=== PATIENT | male | born 1950 | race African-American/Black ===

== ENCOUNTER 2017-02-01 04:20 | Inpatient (IN) | payer MEDICARE, MEDICAID ==
[~2017-02-01] VITALS: Ht 182.9 cm; Wt 99.8 kg
[~2017-02-01 04:20] MED LIST: ACETAMINOPHEN325 M1 ORAL; AMLODIPINE BESYL5 MG ORAL; ASPIR 8181 MG ORAL; ATORVASTATIN CA40 MG ORAL; AZITHROMYC200 MG/5 M ORAL; FLOMAX0.4 MG ORAL; GUAIFENESIN DM118 M1 ORAL; LEVOFLOXACIN500 MG ORAL; MUCINEX600 MG PO; NITROSTAT0.4 M1 SL; NORVASC5 MG ORAL; NOVOLOG100 UNITS1 SUBQ; PANTOPRAZOLE SO40 MG ORAL; PREDNISONE10 MG ORAL; PREDNISONE20 MG ORAL; TAMSULOSIN HCL0.4 MG ORAL; THEOPHYLLINE A100 MG ORAL; VENTOLIN HFA18 GM INH; XOPENEX0.5 MG HHN
[2017-02-01] MEDS ORDERED: Vancomycin 1.5gm/D5W 300ml 325 ML IVPB ONE (04:30)
--- NOTE | 2017-02-01 04:33 | Emergency Room Report ---
History of Present Illness General Chief Complaint: Abdominal Pain Source: Patient, EMS Present Illness HPI 66YO M chronic respi failure on trach/vent sent from [place] for fever, abd pain , and "Distended and rigid abdomen." Patient c/o RUQ pain. Denies nausea/ vomiting, diarrhea, chest pain, SOB, urinary complaints. Had fever at SNF, was given Tylenol and ABx without improvement. Allergies: Coded Allergies: No Known Allergies (Unverified , 08/09/13) Patient History Past Medical History: DM, COPD, other - Chronic respi failure on trach/vent dependent Pertinent Family History: none Social History: Denies: alcohol use, drug use, smoking Immunizations: UTD Reviewed Nursing Documentation: PMH: Agreed, PSxH: Agreed Nursing Documentation-PMH Hx Cardiac Problems: Yes - Dysphasia, Resp. failure Hx Hypertension: Yes Hx Asthma: Yes Hx COPD: Yes Hx Diabetes: Yes Hx Cancer: No Hx Gastrointestinal Problems: No Hx Neurological Problems: No Review of Systems All Other Systems: negative except mentioned in HPI Physical Exam Vital Signs Date Time Temp Pulse Resp B/P Pulse Ox O2 Delivery O2 Flow Rate FiO2 02/01/17 04:21 120 19 113/76 100 Endotracheal Tube 15.0 Sp02 EP Interpretation: reviewed, abnormal General Appearance: normal inspection, well appearing, no apparent distress, alert, GCS 15, non-toxic, obese Head: normocephalic Eyes: bilateral eye EOMI, bilateral eye PERRL ENT: normal ENT inspection, hearing grossly normal, normal voice Neck: normal inspection, full range of motion, supple, no bony tend Respiratory: normal inspection, lungs clear, normal breath sounds, no rhonchi, no respiratory distress, no retraction, no accessory muscle use, no wheezing Cardiovascular #1: regular rate, rhythm, no edema Gastrointestinal: normal inspection, normal bowel sounds, no guarding, no hernia, no pulsatile mass, no rebound, distended, other - RUQ ttp, protuberant Genitourinary: no CVA tenderness Musculoskeletal: normal inspection, back normal, normal range of motion, César' s Sign negative Neurologic: normal inspection, alert, oriented x3, responsive, network support engineer III-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 I attest that this information is true, accurate and complete to the best of my knowledge. I understand that any falsification, omission, or concealment of material fact may subject me to administrative, civil, or criminal liability. This patient warrants hospital admission for extreme of age and has a condition that cannot be treated as outpatient. Diagnostic Impression: Primary Impression: Right upper quadrant abdominal pain Additional Impression: Fever Qualified Codes: R50.9 - Fever, unspecified ER Course Labs: Leuks elevated. H&h stable. SerumCr CHENTE on CKD (based on EMR review) CXR: no PNA, chronic changes UA: No UTI Empiric Abx given CTAP with IV contrast changed to non-contrast because of CHENTE on CKD Endorsed to Dr Wang at 630am to followup CTAP Endorsed to Dr Meehan as preferred [facility] Hospitalist at 610am for [facility] EKG Diagnostic Results Rate: tachycardiac Rhythm: NSR ST Segments: no acute changes ASA given to the pt in ED: No Rhythm Strip Diag. Results EP Interpretation: yes Rate: 110 Chest X-Ray Diagnostic Results EP Interpretation: Yes Findings: no consolidation, no effusion, no pneumothorax, other - previously seen scarring right lower lobe, right hilar prominence is chronic Number of Views: 1 Last Vital Signs Date Time Temp Pulse Resp B/P Pulse Ox O2 Delivery O2 Flow Rate FiO2 02/01/17 04:21 120 19 113/76 100 Endotracheal Tube 15.0 Status: improved Disposition: ADMITTED INPATIENT Condition: Serious DANN HENRIQUEZ M.D. Feb 01, 2017 04:33
[2017-02-01] MEDS ORDERED: Zosyn 4.5gm inj ONE (05:07)
[2017-02-01 05:22] LABS: MEAN CORPUSCULAR HEMOGLOBIN 25.2 PG (27.0-31.0); MEAN CORPUSCULAR HGB CONC 29.1 G/DL (32.0-36.0); MEAN CORPUSCULAR VOLUME 86 FL (80-99); MEAN PLATELET VOLUME 6.8 FL (6.5-10.1); PLATELET COUNT 232 K/UL (150-450); RED BLOOD COUNT 4.33 M/UL (4.70-6.10); RED CELL DISTRIBUTION WIDTH 15.8 % (11.6-14.8); WHITE BLOOD COUNT 21.6 K/UL (4.8-10.8)
[2017-02-01 05:30] LABS: APPEARANCE,URINE CLEAR; KETONES,URINE 1+ (NEGATIVE); LEUKOCYTE ESTERASE ,URINE 1+ (NEGATIVE); NITRITE,URINE NEGATIVE (NEGATIVE); PH,URINE 6 (4.5-8.0); PROTEIN,URINE 3+ (NEGATIVE); UROBILINOGEN,URINE 1 MG/DL (0.0-1.0)
[2017-02-01 05:37] LABS: BACTERIA,URINE FEW /HPF; RBC,URINE 0-2 /HPF (0 - 0); SQUAMOUS EPITHELIAL CELL,UR FEW /LPF (NONE/OCC); WBC,URINE 0-2 /HPF (0 - 0)
[2017-02-01 05:38] LABS: CALCIUM OXALATE CRYSTALS,UR FEW /LPF; ICTOTEST NEGATIVE
[2017-02-01 05:40] LABS: ALANINE AMINOTRANSFERASE 20 U/L (3-41); ANION GAP 8 (5-15); ASPARTATE AMINO TRANSFERASE 27 U/L (5-40); CALCIUM 9.4 mg/dL (8.6-10.2); CARBON DIOXIDE 40 mEQ/L (20-30); CHLORIDE 90 mEQ/L (98-107); CREATININE 2.3 mg/dL (0.7-1.2); GLOMERULAR FILTRATION RATE 34.4 mL/min (>60); HEMOLYSIS 14; POTASSIUM 5.1 mEQ/L (3.4-4.9); SODIUM 138 mEQ/L (135-145)
[2017-02-01 05:50] LABS: BAND NEUTROPHILS % (MANUAL) 14 % (0-8); LYMPHOCYTES % (MANUAL) 19 % (20-45); NEUTROPHILS % (MANUAL) 53 % (45-75); TOTAL CELLS COUNTED 100
[2017-02-01 05:51] LABS: CKMB < 1.5 ng/mL (< 6.7)
[2017-02-01 05:52] LABS: BASOPHILS % (MANUAL) 0 % (0-2); EOSINOPHILS % (MANUAL) 0 % (0-3); PLATELET ESTIMATE ADEQUATE; PLATELET MORPHOLOGY NORMAL
[2017-02-01] MEDS ORDERED: MULTI-VITAMIN1 EACH PO (05:53)
[2017-02-01] MEDS ORDERED: IPRATROPIU0.2 MG/1 M HHN (05:53)
[2017-02-01] MEDS ORDERED: CATAPRES0.1 MG ORAL (05:53)
[2017-02-01] MEDS ORDERED: NORCO 5-325 TA1 EAC1 ORAL (05:53)
[2017-02-01] MEDS ORDERED: ZOSYN 3.373.375 GM/1 IVPB (05:53)
[2017-02-01] MEDS ORDERED: SIMETHICONE80 MG ORAL (05:53)
[2017-02-01] MEDS ORDERED: METOPROLOL TART25 MG ORAL (05:53)
[2017-02-01] MEDS ORDERED: LORAZEPAM2 MG/1 M4 ORAL (05:53)
[2017-02-01] MEDS ORDERED: Piperacillin/Tazobactam 4.5 GM in NS 110 ML IV SCH (06:00)
[2017-02-01 06:02] VITALS: BP 140/68
[2017-02-01 06:07] LABS: TROPONIN I < 0.30 ng/mL (<=0.30)
[2017-02-01] MEDS ORDERED: NS 1000ml 2,200 ML IVLG ONE (07:30)
[2017-02-01 07:57] VITALS: BP 98/70
[2017-02-01 08:40] VITALS: BP 111/76
--- NOTE | 2017-02-01 08:47 | Infectious Diseases Prog Note ---
Assessment/Plan Problems: (1) RLL pneumonia Assessment & Plan: will start levaquin and ceftaroline, send blood culture and sputum culture (2) Acute pyelonephritis Assessment & Plan: on levaquin , will send urine culture (3) Sepsis Assessment & Plan: source most likely intraabdominal pathology, will start levaquin and ceftaroline for now empirically, and send blood culture (4) CHENTE (acute kidney injury) Assessment & Plan: due to sepsis, continue hydration, monitor UOP, consult renal (5) Fever Assessment & Plan: due to sepsis, will start wide spectrum antibiotics, continue tylenol prn (6) Right upper quadrant abdominal pain Assessment & Plan: suspect due to pyelonephritis VS RLL PNA , continue pain management as per primary . CT abdomen and pelvis is negative for acute process Subjective Allergies: Coded Allergies: No Known Allergies (Unverified , 08/09/13) Objective Vital Signs Last 24 Hour Vital Signs Date Time Temp Pulse Resp B/P Pulse Ox O2 Delivery O2 Flow Rate FiO2 02/01/17 08:16 97.1 94 16 98/70 99 Mechanical Ventilator 80 02/01/17 07:57 101 16 98/70 99 Mechanical Ventilator 80 02/01/17 06:30 11 16 80 02/01/17 06:14 80 02/01/17 06:02 97.1 112 16 140/68 99 Trach Collar 100 02/01/17 04:44 128 16 Mechanical Ventilator 80 02/01/17 04:39 100 02/01/17 04:35 128 16 80 02/01/17 04:21 120 19 113/76 100 Endotracheal Tube 15.0 Height (Feet): 6 Weight (Pounds): 164 Laboratory Tests Test 02/01/17 04:50 02/01/17 05:15 White Blood Count 21.6 K/UL (4.8-10.8) H Red Blood Count 4.33 M/UL (4.70-6.10) L Hemoglobin 10.9 G/DL (14.2-18.0) L Hematocrit 37.5 % (42.0-52.0) L Mean Corpuscular Volume 86 FL (80-99) Mean Corpuscular Hemoglobin 25.2 PG (27.0-31.0) L Mean Corpuscular Hemoglobin Concent 29.1 G/DL (32.0-36.0) L Red Cell Distribution Width 15.8 % (11.6-14.8) H Platelet Count 232 K/UL (150-450) Mean Platelet Volume 6.8 FL (6.5-10.1) Neutrophils (%) (Auto) % (45.0-75.0) Lymphocytes (%) (Auto) % (20.0-45.0) Monocytes (%) (Auto) % (1.0-10.0) Eosinophils (%) (Auto) % (0.0-3.0) Basophils (%) (Auto) % (0.0-2.0) Differential Total Cells Counted 100 Neutrophils % (Manual) 53 % (45-75) Lymphocytes % (Manual) 19 % (20-45) L Monocytes % (Manual) 14 % (1-10) H Eosinophils % (Manual) 0 % (0-3) Basophils % (Manual) 0 % (0-2) Band Neutrophils 14 % (0-8) H Platelet Estimate Adequate Platelet Morphology Normal Sodium Level 138 mEQ/L (135-145) Potassium Level 5.1 mEQ/L (3.4-4.9) H Chloride Level 90 mEQ/L (98-107) L Carbon Dioxide Level 40 mEQ/L (20-30) H Anion Gap 8 (5-15) Blood Urea Nitrogen 31 mg/dL (7-23) H Creatinine 2.3 mg/dL (0.7-1.2) H Estimat Glomerular Filtration Rate 34.4 mL/min (>60) Glucose Level 163 mg/dL (74-106) H Lactic Acid Level 1.10 mmol/L (0.66-2.22) Calcium Level 9.4 mg/dL (8.6-10.2) Total Bilirubin 0.9 mg/dL (0.0-1.2) Aspartate Amino Transf (AST/SGOT) 27 U/L (5-40) Alanine Aminotransferase (ALT/SGPT) 20 U/L (3-41) Alkaline Phosphatase 61 U/L (40-129) Total Creatine Kinase 34 U/L (38-174) L Creatine Kinase MB < 1.5 ng/mL (< 6.7) Creatine Kinase MB Relative Index 4.4 Troponin I < 0.30 ng/mL (<=0.30) Total Protein 7.0 g/dL (6.6-8.7) Albumin 3.6 g/dL (3.5-5.2) Globulin 3.4 g/dL Albumin/Globulin Ratio 1.0 (1.0-2.7) Urine Color Yellow Urine Appearance Clear Urine pH 6 (4.5-8.0) Urine Specific [place] 1.010 (1.005-1.035) Urine Protein 3+ (NEGATIVE) H Urine Glucose (UA) Negative (NEGATIVE) Urine Ketones 1+ (NEGATIVE) H Urine Occult Blood Negative (NEGATIVE) Urine Nitrite Negative (NEGATIVE) Urine Bilirubin 1+ (NEGATIVE) H Urine Ictotest Negative Urine Urobilinogen 1 MG/DL (0.0-1.0) H Urine Leukocyte Esterase 1+ (NEGATIVE) H Urine RBC 0-2 /HPF (0 - 0) H Urine WBC 0-2 /HPF (0 - 0) Urine Squamous Epithelial Cells Few /LPF (NONE/OCC) Urine Calcium Oxalate Crystals Few /LPF (NONE) Urine Bacteria Few /HPF (NONE) Current Medications Medications (Trade) Dose Ordered Sig/Beto Route PRN Reason Start Time Stop Time Status Last Admin Dose Admin Piperacillin Sod/ Tazobactam Sod/ Sodium Chloride (Zosyn/Sodium Chloride) 110 ml @ 220 mls/hr Q8HR IV 02/01/17 06:00 02/02/17 05:59 02/01/17 07:31 Abhijit Tolbert M.D. Feb 01, 2017 08:47
--- NOTE | 2017-02-01 09:44 | Diagnostic Imaging Report ---
Indication: Abdominal pain Technique: Spiral acquisitions obtained through the abdomen and pelvis. No oral contrast utilized, per emergency room physician request No IV contrast utilized, per referring physician request. Multiplanar reconstructions were generated. Total dose length product 904 mGycm. CTDIvol(s) 17 mGy. Dose reduction achieved using automated exposure control Comparison: None Findings: Fairly dense stool mildly distends the rectum. There is colonic diverticulosis. No evidence of acute diverticulitis. The appendix is normal. There is nonspecific slight prominence to the proximal small bowel loops, but no small bowel distention. The distal esophagus, stomach, duodenum are unremarkable. No free or loculated intraperitoneal air or fluid is evident. Lack of IV contrast limits assessment of the solid organs. The liver, gallbladder, bile ducts, pancreas, spleen, adrenals, right kidney are unremarkable. There is a 3 cm left renal cyst. No renal arterial calculi, hydronephrosis, or hydroureter. There is some nonspecific bilateral perinephric fat stranding. The bladder is empty, contains a Damon catheter. No pelvic mass or adenopathy. No retroperitoneal or mesenteric mass or adenopathy. There are tiny bilateral inguinal hernias which contain only fat. The included lung bases demonstrate considerable consolidation of the posterior right lower lobe. Less extensive linear, reticular, and airspace opacities are seen in the left lower lobe. There is some atelectasis or scarring in the right middle lobe. There are degenerative changes of the lumbar spine. Impression: No definite acute process Nonspecific bilateral perinephric fat stranding. Suspect chronic, pyelonephritis not excludable Considerable right lower lobe consolidation. Less extensive left lung base parenchymal disease Incidental findings as noted, including degenerative spondylosis, bilateral fat-containing inguinal hernias, empty bladder with a Damon catheter, left renal cyst This agrees with the preliminary interpretation provided overnight by Dr. Garcse The CT scanner at [facility] is accredited by the [employer] and the scans are performed using protocols designed to limit radiation exposure to as low as reasonably achievable to attain images of sufficient resolution adequate for diagnostic evaluation.
[2017-02-01] MEDS ORDERED: Piperacillin/Tazobactam 3.375 GM in NS 110 ML IVPB SCH ×2 (10:00→14:00)
--- NOTE | 2017-02-01 10:14 | Diagnostic Imaging Report ---
Indication: SOB Technique: One view of the chest Comparison: 12/25/2015 Findings: There is consolidation at the right lung base, new or increased from the prior study. Linear opacities at the left lung base likely reflects scarring. The upper lung coreas are clear. Heart size is normal. There is a tracheostomy Impression: Right basilar consolidation, likely pneumonia Left basilar linear opacities, likely scarring.
[2017-02-01] MEDS: Ceftaroline 300 MG in NS 55 ML IVPB SCH ×2 (10:39→21:09)
[2017-02-01] MEDS ORDERED: Miralax 17gm pkt ORAL PRN (10:45)
--- NOTE | 2017-02-01 11:03 | Consultation ---
Consult Note Consult Note Asked to evaluate for renal failure- Chief Complaint: Abdominal Pain HPI 66YO M chronic respi failure on trach/vent sent from [place] for fever, abd pain , and "Distended and rigid abdomen." Patient c/o RUQ pain. Denies nausea/ vomiting, diarrhea, chest pain, SOB, urinary complaints. Had fever at SNF, was given Tylenol and ABx without improvement. Past Medical History: DM, COPD, other - Chronic respi failure on trach/vent dependent Hx Cardiac Problems: Yes - Dysphasia, Resp. failure Hx Hypertension: Yes Hx Asthma: Yes Hx COPD: Yes Hx Diabetes: Yes Patient examined and data reviewed Assessment/Plan status: Acute renal failure- Sepsis- DM Respiratory failure RUQ pain Anemia Plan: Hydrate- monitor renal parameters- Keep BP and BS in check urine studies- Avoid nephrotoxics SAMANTHA ALLRED Feb 01, 2017 11:03
--- NOTE | 2017-02-01 11:10 | History and Physical ---
History of Present Illness General Date patient seen: Feb 01, 2017 Reason for Hospitalization: Abdominal Pain Present Illness HPI 66year old male with hx of chronic respiratory failure on trach/vent/Peg, senior care resident brought in with CC of fever, abdominal pain, and "Distended and rigid abdomen." Patient c/o RUQ pain. Denies nausea/vomiting, diarrhea, chest pain, SOB, urinary complaints. Had fever at SNF, was given Tylenol and ABx without improvement. He is awake and comfortable now. He was diagnosed to have sepsis/ pneumonia and admitted to [facility] for further evaluation. Allergies: Coded Allergies: No Known Allergies (Unverified , 08/09/13) Medication History Scheduled Albuterol Sulfate (Ventolin Hfa), 2 PUFFS INH EVERY 6 HOURS, (Reported) Amlodipine Besylate* (Amlodipine Besylate*), 5 MG ORAL DAILY, (Reported) Aspirin* (Aspir 81*), 81 MG ORAL DAILY, (Reported) Atorvastatin Calcium* (Atorvastatin Calcium*), 80 MG ORAL BEDTIME, (Reported) Clonidine Hcl* (Catapres*), 0.1 MG ORAL EVERY 6 HOURS, (Reported) Insulin Aspart (Novolog Flexpen), 0 UNITS SUBQ BEFORE MEALS AND HS Levofloxacin (Levofloxacin*), 500 MG ORAL DAILY Lorazepam (Lorazepam), 2 MG ORAL DAILY, (Reported) Metoprolol Tartrate* (Metoprolol Tartrate*), 25 MG ORAL EVERY 12 HOURS, ( Reported) Pantoprazole* (Pantoprazole*), 40 MG ORAL DAILY, (Reported) Fjwqwcsrihqa-Gfmr-Bzosuylg,Iso (Zosyn 3.375 Gm Pre Mix-Bag), 3.375 GM IVPB EVERY 6 HOURS, (Reported) Prednisone* (Prednisone*), 20 MG ORAL DAILY Tamsulosin HCl (Flomax), 0.4 MG ORAL BEDTIME Tamsulosin Hcl (Tamsulosin Hcl*), 0.4 MG ORAL BEDTIME, (Reported) Theophylline (Theodur*), 100 MG ORAL EVERY 12 HOURS Scheduled PRN Acetaminophen* (Acetaminophen 325MG Tablet*), 650 MG ORAL Q4H PRN for fever Guaifenesin/Dextromethorphan (Guaifenesin Dm Syrup), 10 ML ORAL Q4H PRN for For Cough Hydrocodone Bit/Acetaminophen 5-325* ([place] 5-325 Tablet*), 1 TAB ORAL Q4H PRN for For Pain, (Reported) Ipratropium [place] 0.5MG/2.5ML (Ipratropium [place] 0.5MG/2.5ML), 0.5 MG HHN Q6H PRN for Shortness of Breath, (Reported) Levalbuterol HCl (Xopenex Concentrate), 0.625 MG HHN Q4H PRN for Shortness of Breath Nitroglycerin (Nitrostat), 0.4 MG SL Q5M PRN for Prn Chest Pain Simethicone* (Simethicone*), 80 MG ORAL Q8H PRN for GAS PAIN, (Reported) Miscellaneous Medications Multivitamin (Multi-Vitamin Daily), 1 EACH PO, (Reported) Patient History Healthcare decision maker Resuscitation status Advanced Directive on File Past Medical/Surgical History Past Medical/Surgical History: (1) Tracheostomy care Physical Exam General Appearance: WD/WN Lines, tubes and drains: peripheral, trach Neck: non-tender, normal alignment, supple Respiratory/Chest: chest wall non-tender, lungs clear Cardiovascular/Chest: normal peripheral pulses, normal rate Genitourinary/Rectal: normal genital exam, heme negative stool Extremities: normal range of motion, non-tender Last 24 Hour Vital Signs Date Time Temp Pulse Resp B/P Pulse Ox O2 Delivery O2 Flow Rate FiO2 02/01/17 10:21 80 02/01/17 08:40 97.0 88 16 111/76 100 Mechanical Ventilator 80 02/01/17 08:30 108 16 80 02/01/17 08:16 97.1 94 16 98/70 99 Mechanical Ventilator 80 02/01/17 07:57 101 16 98/70 99 Mechanical Ventilator 80 02/01/17 06:30 11 16 80 02/01/17 06:14 80 02/01/17 06:02 97.1 112 16 140/68 99 Trach Collar 100 02/01/17 04:44 128 16 Mechanical Ventilator 80 02/01/17 04:39 100 02/01/17 04:35 128 16 80 02/01/17 04:21 120 19 113/76 100 Endotracheal Tube 15.0 Intake and Output 01/31/17 02/01/17 19:00 07:00 Intake Total 1000 ml Balance 1000 ml Intake IV Total 1000 ml Laboratory Tests Test 02/01/17 04:50 02/01/17 05:15 White Blood Count 21.6 K/UL (4.8-10.8) H Red Blood Count 4.33 M/UL (4.70-6.10) L Hemoglobin 10.9 G/DL (14.2-18.0) L Hematocrit 37.5 % (42.0-52.0) L Mean Corpuscular Volume 86 FL (80-99) Mean Corpuscular Hemoglobin 25.2 PG (27.0-31.0) L Mean Corpuscular Hemoglobin Concent 29.1 G/DL (32.0-36.0) L Red Cell Distribution Width 15.8 % (11.6-14.8) H Platelet Count 232 K/UL (150-450) Mean Platelet Volume 6.8 FL (6.5-10.1) Neutrophils (%) (Auto) % (45.0-75.0) Lymphocytes (%) (Auto) % (20.0-45.0) Monocytes (%) (Auto) % (1.0-10.0) Eosinophils (%) (Auto) % (0.0-3.0) Basophils (%) (Auto) % (0.0-2.0) Differential Total Cells Counted 100 Neutrophils % (Manual) 53 % (45-75) Lymphocytes % (Manual) 19 % (20-45) L Monocytes % (Manual) 14 % (1-10) H Eosinophils % (Manual) 0 % (0-3) Basophils % (Manual) 0 % (0-2) Band Neutrophils 14 % (0-8) H Platelet Estimate Adequate Platelet Morphology Normal Sodium Level 138 mEQ/L (135-145) Potassium Level 5.1 mEQ/L (3.4-4.9) H Chloride Level 90 mEQ/L (98-107) L Carbon Dioxide Level 40 mEQ/L (20-30) H Anion Gap 8 (5-15) Blood Urea Nitrogen 31 mg/dL (7-23) H Creatinine 2.3 mg/dL (0.7-1.2) H Estimat Glomerular Filtration Rate 34.4 mL/min (>60) Glucose Level 163 mg/dL (74-106) H Lactic Acid Level 1.10 mmol/L (0.66-2.22) Calcium Level 9.4 mg/dL (8.6-10.2) Total Bilirubin 0.9 mg/dL (0.0-1.2) Aspartate Amino Transf (AST/SGOT) 27 U/L (5-40) Alanine Aminotransferase (ALT/SGPT) 20 U/L (3-41) Alkaline Phosphatase 61 U/L (40-129) Total Creatine Kinase 34 U/L (38-174) L Creatine Kinase MB < 1.5 ng/mL (< 6.7) Creatine Kinase MB Relative Index 4.4 Troponin I < 0.30 ng/mL (<=0.30) Total Protein 7.0 g/dL (6.6-8.7) Albumin 3.6 g/dL (3.5-5.2) Globulin 3.4 g/dL Albumin/Globulin Ratio 1.0 (1.0-2.7) Urine Color Yellow Urine Appearance Clear Urine pH 6 (4.5-8.0) Urine Specific [place] 1.010 (1.005-1.035) Urine Protein 3+ (NEGATIVE) H Urine Glucose (UA) Negative (NEGATIVE) Urine Ketones 1+ (NEGATIVE) H Urine Occult Blood Negative (NEGATIVE) Urine Nitrite Negative (NEGATIVE) Urine Bilirubin 1+ (NEGATIVE) H Urine Ictotest Negative Urine Urobilinogen 1 MG/DL (0.0-1.0) H Urine Leukocyte Esterase 1+ (NEGATIVE) H Urine RBC 0-2 /HPF (0 - 0) H Urine WBC 0-2 /HPF (0 - 0) Urine Squamous Epithelial Cells Few /LPF (NONE/OCC) Urine Calcium Oxalate Crystals Few /LPF (NONE) Urine Bacteria Few /HPF (NONE) Height (Feet): 6 Weight (Pounds): 164 Medications Current Medications Medications (Trade) Dose Ordered Sig/Beto Route PRN Reason Start Time Stop Time Status Last Admin Dose Admin Ceftaroline Fosamil 300 mg/ Sodium Chloride 55 ml @ 55 mls/hr Q12H IVPB 02/01/17 10:00 02/08/17 09:59 Piperacillin Sod/ Tazobactam Sod/ Sodium Chloride (Zosyn/Sodium Chloride) 110 ml @ 27.5 mls/hr Q8HR IVPB 02/01/17 14:00 02/08/17 13:59 Assessment/Plan Problem List: (1) Acute and chronic respiratory failure ([id number]) ICD Codes: J96.20 - Acute and chronic respiratory failure, unspecified whether with hypoxia or hypercapnia SNOMED: 35311299, 57359541 (2) Sepsis ICD Codes: A41.9 - Sepsis, unspecified organism SNOMED: 81906159 (3) CHENTE (acute kidney injury) ICD Codes: N17.9 - Acute kidney failure, unspecified SNOMED: 36154457 (4) Diabetes mellitus ICD Codes: E11.9 - Type 2 diabetes mellitus without complications SNOMED: 80876659 (5) Hypertension ICD Codes: I10 - Essential (primary) hypertension SNOMED: 34222589 Assessment/Plan Martinez cultures IV antibiotics titrate vent sliding scale sputum c/s GI evaluation dvt prohylaxis VALERIE WASHINGTON Feb 01, 2017 11:10
[2017-02-01 11:40] LABS: ALANINE AMINOTRANSFERASE 20 U/L (3-41); ALBUMIN/GLOBULIN RATIO 1.1 (1.0-2.7); ANION GAP 12 (5-15); ASPARTATE AMINO TRANSFERASE 27 U/L (5-40); CALCIUM 9.6 mg/dL (8.6-10.2); CARBON DIOXIDE 37 mEQ/L (20-30); CHLORIDE 88 mEQ/L (98-107); CREATININE 2.3 mg/dL (0.7-1.2); GLOMERULAR FILTRATION RATE 34.4 mL/min (>60); HEMOLYSIS 5; MAGNESIUM 1.9 mg/dL (1.7-2.5); PHOSPHORUS 2.5 mg/dL (2.5-4.8); SODIUM 137 mEQ/L (135-145); TOTAL PROTEIN 6.9 g/dL (6.6-8.7); URIC ACID 4.7 mg/dL (3.0-7.5)
[2017-02-01 12:00] VITALS: BP 122/77
--- NOTE | 2017-02-01 14:50 | Diagnostic Imaging Report ---
Indication: Abdominal pain Technique: Morton-scale and duplex images of the upper abdomen were obtained Comparison: Abdomen pelvis CT dated 02/01/2017 Findings: . Gallbladder is unremarkable, without stones, wall thickening, nor pericholecystic fluid. Sonographic Tadeo's sign is negative. Common bile duct measures 5 mm in diameter. No intrahepatic biliary ductal dilatation. Liver demonstrates normal echogenicity. A 12 mm cyst is seen posteriorly at the surface of the right hepatic lobe, in retrospect evident on prior CT scan. Portal vein and hepatic veins are patent.. Pancreas is incompletely visualized due to overlying bowel gas, visualized portions are unremarkable. Spleen is unremarkable. Left kidney measures 11.2 cm in length. Right kidney measures 11.5 cm length. Both kidneys demonstrate normal echogenicity. There is no hydronephrosis. The left kidney demonstrates a 2.2 cm upper pole cyst.. . Abdominal aorta is partially obscured by bowel gas, visualized portions are non-aneurysmal. Impression: Negative for gallstones, dilated ducts, or other acute pathology Incidental finding of hepatic and renal cysts Note suboptimal visualization of portions of the pancreas and abdominal aorta
--- NOTE | 2017-02-01 15:29 | Cardiology Report ---
APPROVED REPORT EKG Measurement Heart [id number] Sinus tachycardia Right atrial enlargement Borderline ECG
[2017-02-01 16:00] VITALS: BP_SYST 119; BP_SYST 138; BP_DIAS 80; BP_DIAS 96
[2017-02-01] MEDS ORDERED: Tubing IV Secondary IV ONE (16:16)
[2017-02-01] MEDS ORDERED: NS 275ml ONE (16:16)
[2017-02-01] MEDS: DuoNeb 0.5-3(2.5)mg/3ml neb HHN PRN (19:04)
[2017-02-01 20:00] VITALS: BP 133/72
[2017-02-01 20:00] LABS: APPEARANCE,URINE CLEAR; KETONES,URINE 1+ (NEGATIVE); LEUKOCYTE ESTERASE ,URINE 1+ (NEGATIVE); NITRITE,URINE NEGATIVE (NEGATIVE); PH,URINE 9 (4.5-8.0); PROTEIN,URINE 2+ (NEGATIVE); UROBILINOGEN,URINE 4 MG/DL (0.0-1.0)
[2017-02-01 20:20] LABS: BACTERIA,URINE FEW /HPF; RBC,URINE 20-30 /HPF (0 - 0)
[2017-02-01] MEDS ORDERED: Cefepime HCl 2 GM in D5W 110 ML IV SCH (21:00)
[2017-02-01] MEDS: Metoprolol 25mg tab ORAL SCH (21:09)
[2017-02-01] MEDS: Tamsulosin 0.4mg cap ORAL SCH (21:09)
[2017-02-01] MEDS: Heparin 5000 units/ml inj SUBQ SCH (21:10)
--- NOTE | 2017-02-01 21:58 | Consultation ---
DATE OF CONSULTATION: INFECTIOUS DISEASE CONSULTATION REQUESTING PHYSICIAN: Lainey Trevizo M.D. REASON FOR CONSULTATION: Sepsis, pneumonia, possible acute pyelonephritis, and recommendation for antibiotics therapy. HISTORY OF PRESENT ILLNESS: The patient is a 66-year-old male with past medical history of chronic respiratory failure, dysphagia, hypertension, asthma, COPD, and diabetes, who is on a trach and ventilator. He was sent from [facility] for fever and abdominal pain with distention. The patient was complaining of right upper quadrant abdominal pain. Denied any nausea or vomiting. No diarrhea. No chest pain or shortness of breath but he had cough and phlegm. No hematuria or dysuria. The patient received Tylenol for his fever at the [facility] and he was sent to [facility] for further evaluation and management. The patient was septic and tachycardic with pulse of 120 in the emergency room. He required mechanical ventilation and was started on IV antibiotics by the emergency room physician and I was consulted by the primary provider for antibiotics recommendation for possible right lower lobe pneumonia and acute pyelonephritis as evidenced on the CT scan of the abdomen. As of note, the patient cannot provide history. History was mainly obtained from the medical record. PAST MEDICAL HISTORY: Significant for dysphagia, chronic respiratory failure, hypertension, asthma, COPD, and diabetes mellitus. PAST SURGICAL HISTORY: He had tracheostomy and G-tube placement. ALLERGIES: He has no known drug allergy. MEDICATIONS: He received vancomycin and Zosyn in the emergency room. For further details please refer to the MAR. SOCIAL HISTORY: He lives at [facility]. No recent drugs, tobacco, or alcohol. REVIEW OF SYSTEMS: Unable to obtain. The patient is on trach and cannot provide any history. PHYSICAL EXAMINATION: GENERAL: This is a middle-aged male, up in bed with tracheostomy on mechanical ventilation, alert, not in acute distress. VITAL SIGNS: Temperature 98.6 degrees, pulse 98, respirations 16, blood pressure 122/77, and saturation 99% on mechanical ventilation with FiO2 of 35. HEENT: Normocephalic and atraumatic. Pupils are reactive to light equally. Moist oral mucosa. NECK: Supple with tracheostomy site looks intact. CARDIOVASCULAR: He is tachycardic. S1 and S2 positive. No murmur. LUNGS: He had diminished breathing sound on the right lower lobe with crackles. No wheezing. ABDOMEN: Soft, obese, and tender in the right side in the flank area. No rebound. No organomegaly. No ascites. EXTREMITIES: No edema. No cyanosis. SKIN: No rash. No hives. LABORATORY DATA: He had white count of 2100.6, hemoglobin 10.9, and platelet count of 232,000. BUN of 31 and creatinine of 2.30. Urinalysis showed leukocyte esterase +1, WBC 0 to 2, and negative nitrate. IMAGING STUDIES: Chest x-ray showed right basilar consolidation likely pneumonia and left basilar linear opacity likely scarring. CT scan of the abdomen and pelvis showed no acute process, nonspecific bilateral perinephric fat stranding, suspect chronic pyelonephritis, considerable right lower lobe consolidation thus extensive left lung base parenchymal disease, fat containing inguinal hernias, empty bladder with a Damon catheter and left renal cyst. ASSESSMENT AND PLAN: 1. Right lower lobe pneumonia. We will start the patient on Levaquin and ceftaroline. We will send blood culture and sputum culture. 2. Acute pyelonephritis. The patient will be on Levaquin. We will send urine culture. 3. Sepsis due to the above. The patient will be on Levaquin and ceftaroline empiric treatment. Pending blood culture and urine culture results. 4. Acute renal failure unclear if he had chronic kidney failure either suspect due to sepsis. Continue hydration. Monitor urine output. Consult Renal. 5. Fever due to sepsis and pneumonia. The patient will be on wide-spectrum antibiotics. Continue Tylenol as needed. 6. Right upper quadrant abdominal pain suspect either due to pneumonia or pyelonephritis. Continue pain management as per the primary team. CT of the abdomen and pelvis was negative for acute process. Abhijit Tolbert M.D. DR: MENDOZA JOB#: [id number] CC:
--- NOTE | 2017-02-01 22:33 | General Progress Note ---
Assessment/Plan Assessment/Plan Assessment - RUQ abd pain, apparently resolved - pyelo - diverticulosis - mild anemia - Azotemia - Resp failure / Trach Recommendations - po diet as tolerated - abx - follow labs and exam - patient declines EGD/Colon Subjective Allergies: Coded Allergies: No Known Allergies (Unverified , 08/09/13) Objective Last 24 Hour Vital Signs Date Time Temp Pulse Resp B/P Pulse Ox O2 Delivery O2 Flow Rate FiO2 02/01/17 21:09 106 133/72 02/01/17 20:34 104 16 35 02/01/17 20:00 98.7 100 20 133/72 96 Mechanical Ventilator 100 02/01/17 19:12 113 16 100 Mechanical Ventilator 02/01/17 19:02 121 02/01/17 19:00 117 16 35 02/01/17 19:00 117 16 100 Mechanical Ventilator 60 02/01/17 17:29 86 02/01/17 16:38 90 16 35 02/01/17 16:00 80 02/01/17 16:00 98.9 105 16 119/80 97 Mechanical Ventilator 35 02/01/17 15:41 103 02/01/17 14:40 98 18 35 02/01/17 12:52 96 18 35 02/01/17 12:00 98.6 98 16 122/77 99 Mechanical Ventilator 35 02/01/17 12:00 80 02/01/17 11:32 95 02/01/17 10:45 105 16 35 02/01/17 10:21 80 02/01/17 08:40 97.0 88 16 111/76 100 Mechanical Ventilator 80 02/01/17 08:30 108 16 80 02/01/17 08:16 97.1 94 16 98/70 99 Mechanical Ventilator 80 02/01/17 07:57 101 16 98/70 99 Mechanical Ventilator 80 02/01/17 06:30 11 16 80 02/01/17 06:14 80 02/01/17 06:02 97.1 112 16 140/68 99 Trach Collar 100 02/01/17 04:44 128 16 Mechanical Ventilator 80 02/01/17 04:39 100 02/01/17 04:35 128 16 80 02/01/17 04:21 120 19 113/76 100 Endotracheal Tube 15.0 Intake and Output 01/31/17 02/01/17 19:00 07:00 Intake Total 1000 ml Balance 1000 ml Intake IV Total 1000 ml Laboratory Tests 02/01/17 04:50: White Blood Count 21.6H, Red Blood Count 4.33L, Hemoglobin 10.9L, Hematocrit 37.5L, Mean Corpuscular Volume 86, Mean Corpuscular Hemoglobin 25.2L, Mean Corpuscular Hemoglobin Concent 29.1L, Red Cell Distribution Width 15.8H, Platelet Count 232, Mean Platelet Volume 6.8, Neutrophils (%) (Auto) , Lymphocytes (%) (Auto) , Monocytes (%) (Auto) , Eosinophils (%) (Auto) , Basophils (%) (Auto) , Differential Total Cells Counted 100, Neutrophils % ( Manual) 53, Lymphocytes % (Manual) 19L, Monocytes % (Manual) 14H, Eosinophils % (Manual) 0, Basophils % (Manual) 0, Band Neutrophils 14H, Platelet Estimate Adequate, Platelet Morphology Normal, Sodium Level 137, Potassium Level 5.0H, Chloride Level 88L, Carbon Dioxide Level 37H, Anion Gap 12, Blood Urea Nitrogen 31H, Creatinine 2.3H, Estimat Glomerular Filtration Rate 34.4, Glucose Level 154H, Lactic Acid Level 1.10, Uric Acid 4.7, Calcium Level 9.6, Phosphorus Level 2.5, Magnesium Level 1.9, Total Bilirubin 0.9, Aspartate Amino Transf (AST /SGOT) 27, Alanine Aminotransferase (ALT/SGPT) 20, Alkaline Phosphatase 61, Total Creatine Kinase 32L, Creatine Kinase MB < 1.5, Creatine Kinase MB Relative Index 4.4, Troponin I < 0.30, Total Protein 6.9, Albumin 3.7, Globulin 3.2, Albumin/Globulin Ratio 1.1, Thyroid Stimulating Hormone (TSH) 1.310, Free Thyroxine 1.31 02/01/17 05:15: Urine Color Yellow, Urine Appearance Clear, Urine pH 6, Urine Specific [place] 1.010, Urine Protein 3+H, Urine Glucose (UA) Negative, Urine Ketones 1+H, Urine Occult Blood Negative, Urine Nitrite Negative, Urine Bilirubin 1+H, Urine Ictotest Negative, Urine Urobilinogen 1H, Urine Leukocyte Esterase 1+H, Urine RBC 0-2H, Urine WBC 0-2, Urine Squamous Epithelial Cells Few, Urine Calcium Oxalate Crystals Few, Urine Bacteria Few 02/01/17 11:45: Plasma/Serum Osmolality [Pending], Free Triiodothyronine [Pending], Cortisol [ Pending] 02/01/17 16:45: Urine Color Yellow, Urine Appearance Clear, Urine pH 9, Urine Specific [place] 1.010, Urine Protein 2+H, Urine Glucose (UA) Negative, Urine Ketones 1+H, Urine Occult Blood 4+H, Urine Nitrite Negative, Urine Bilirubin Negative, Urine Urobilinogen 4H, Urine Leukocyte Esterase 1+H, Urine RBC 20-30H, Urine WBC 2-4, Urine Squamous Epithelial Cells None, Urine Bacteria Few, Urine Eosinophils None seen, Urine Osmolality [Pending], Urine Random Sodium 110, Urine Random Chloride 61, Urine Potassium Timed 65 Height (Feet): 6 Weight (Pounds): 205 MACRINA ALANIZNIA Feb 01, 2017 22:33
[2017-02-01] MEDS ORDERED: Vancomycin 1 GM in D5W 275 ML IV SCH (23:00)
[2017-02-02] VITALS: BP 104/75
[2017-02-02] MEDS: DuoNeb 0.5-3(2.5)mg/3ml neb HHN PRN ×2 (00:44→08:48)
[2017-02-02] MEDS: LORazepam Inj 2mg/ml 1ml IV PRN ×3 (03:39→22:45)
[2017-02-02 04:00] VITALS: BP 113/73
[2017-02-02 05:03] LABS: BASOPHILS % (AUTO) 1.3 % (0.0-2.0); EOSINOPHILS % (AUTO) 1.5 % (0.0-3.0); LYMPHOCYTES % (AUTO) 7.9 % (20.0-45.0); MEAN CORPUSCULAR HEMOGLOBIN 25.2 PG (27.0-31.0); MEAN CORPUSCULAR HGB CONC 29.4 G/DL (32.0-36.0); MEAN CORPUSCULAR VOLUME 86 FL (80-99); MEAN PLATELET VOLUME 6.3 FL (6.5-10.1); MONOCYTES % (AUTO) 11.7 % (1.0-10.0); NEUTROPHILS % (AUTO) 77.5 % (45.0-75.0); PLATELET COUNT 183 K/UL (150-450); RED BLOOD COUNT 3.68 M/UL (4.70-6.10); RED CELL DISTRIBUTION WIDTH 15.2 % (11.6-14.8); WHITE BLOOD COUNT 15.2 K/UL (4.8-10.8)
[2017-02-02 05:18] LABS: ALANINE AMINOTRANSFERASE 15 U/L (3-41); ALBUMIN/GLOBULIN RATIO 0.8 (1.0-2.7); ANION GAP 11 (5-15); ASPARTATE AMINO TRANSFERASE 18 U/L (5-40); CALCIUM 8.5 mg/dL (8.6-10.2); CARBON DIOXIDE 30 mEQ/L (20-30); CHLORIDE 98 mEQ/L (98-107); CREATININE 1.2 mg/dL (0.7-1.2); CRP QUANT 26.3 mg/dL (< 0.5); GLOMERULAR FILTRATION RATE > 60 mL/min (>60); HEMOLYSIS 3; MAGNESIUM 1.7 mg/dL (1.7-2.5); PHOSPHORUS 2.5 mg/dL (2.5-4.8); POTASSIUM 4.3 mEQ/L (3.4-4.9); SODIUM 139 mEQ/L (135-145); URIC ACID 2.6 mg/dL (3.0-7.5)
[2017-02-02 05:31] LABS: THYROID STIMULATING HORMONE 0.699 uIU/mL (0.300-4.500)
[2017-02-02 08:00] VITALS: BP 123/72
[2017-02-02 08:19] LABS: CORTISOL LC 11.4 ug/dL (.); FREE TRIIODOTHYRONINE 1.9 pg/mL (2.0-4.4)
[2017-02-02] MEDS: Metoprolol 25mg tab ORAL SCH ×2 (09:30→21:25)
[2017-02-02] MEDS: Heparin 5000 units/ml inj SUBQ SCH ×2 (09:30→21:29)
[2017-02-02] MEDS: Ceftaroline 300 MG in NS 55 ML IVPB SCH (09:30)
--- NOTE | 2017-02-02 09:38 | Consultation ---
DATE OF CONSULTATION: 02/01/2017 NOTE: VERY BAD INAUDIBLE AUDIO QUALITY GASTROLOGY CONSULTATION CHIEF COMPLAINT: I was asked to see this patient by Dr. Julia Greene and Dr. Lainey Trevizo for evaluation of some abdominal pain. HISTORY OF PRESENT ILLNESS: The patient is a pleasant 66-year-old man with a past medical history of respiratory failure requiring tracheostomy placement, who comes in to the hospital with abdominal pain and sepsis from pyelonephritis. The patient had complained of some right upper quadrant abdominal pain on admission. He denies any nausea, vomiting, or diarrhea. The patient has received antibiotics and imaging studies. He now denies abdominal pain and certainly feels better. He has now had a colonoscopy and . He understands that Oncology recommended for a cancer surveillance in the colon, which he has never had. The patient has not had any hematochezia. PAST MEDICAL HISTORY: History of chronic respiratory failure, status post tracheostomy tube placement; hypertension; asthma; COPD; and diabetes mellitus. FAMILY HISTORY: Noncontributory. SURGICAL HISTORY: Status post tracheostomy and gastrostomy tube placement. SOCIAL HISTORY: The patient resides at [facility]. He has had no history of drugs or alcohol abuse. REVIEW OF SYSTEMS: Otherwise negative. PHYSICAL EXAMINATION: GENERAL: A well-developed, responsive man, seen in his room. HEENT: Normocephalic and atraumatic. Sclerae anicteric. Oropharynx is clear. NECK: Showed a tracheostomy and a catheter. CHEST: Clear to auscultation. CARDIAC: Revealed regular rate. ABDOMEN: Soft. EXTREMITIES: Revealed no edema. LABORATORY DATA: Laboratory data were noted. ASSESSMENT: This patient presents with right quadrant abdominal pain, which seemingly appears to have resolved. The patient does not want to have any workup as his pain symptoms resolved . In addition, the patient declined any screening for evaluation such as screening colonoscopy. In addition, he . Should his symptoms return, further evaluation with a HIDA scan and/or upper endoscopy can be considered. RECOMMENDATION: Per above discussion and per orders written in the chart. Thank you for asking me to participate in the care of this patient. Eliseo Sterling M.D. DR: KELLY JOB#: [id number] CC:
--- NOTE | 2017-02-02 10:36 | Pulmonology Progress Note ---
Assessment/Plan Problems: (1) Acute and chronic respiratory failure ([id number]) (2) Sepsis (3) CHENTE (acute kidney injury) (4) Diabetes mellitus (5) Hypertension Respiratory: monitor respiratory rate, adjust FIO2 Cardiac: continue pressors, continue to monitor HR/BP Renal: F/U I&O, keep IV fluid Infectious Disease: check cultures Gastrointestinal: continue feedings/current rate Endocrine: monitor blood sugar, check TSH, continue sliding scale insulin Hematologic: monitor H/H, transfuse if hgb<8.5 Neurologic: PRN Ativan, keep patient comfortable Affect: PRN ativan Prophylaxis: Protonix Notes Reviewed: renal Discussed with: nurses, consultants Subjective ROS Limited/Unobtainable: Yes Interval Events: comfortable Allergies: Coded Allergies: No Known Allergies (Unverified , 08/09/13) Objective Last 24 Hour Vital Signs Date Time Temp Pulse Resp B/P Pulse Ox O2 Delivery O2 Flow Rate FiO2 02/02/17 09:30 101 123/72 02/02/17 08:48 105 18 97 Mechanical Ventilator 35 02/02/17 08:48 105 18 35 02/02/17 08:00 106 02/02/17 08:00 97.0 101 16 123/72 95 Mechanical Ventilator 35 02/02/17 08:00 35 02/02/17 07:08 98 16 35 02/02/17 05:02 101 16 35 02/02/17 04:00 98.2 97 20 113/73 96 Mechanical Ventilator 97 02/02/17 04:00 35 02/02/17 03:59 93 02/02/17 03:16 99 16 35 02/02/17 00:49 102 16 100 Mechanical Ventilator 02/02/17 00:41 111 16 100 Mechanical Ventilator 60 02/02/17 00:40 111 16 35 02/02/17 00:00 98.2 90 21 104/75 99 Mechanical Ventilator 90 02/02/17 00:00 35 02/01/17 23:49 87 02/01/17 22:56 98 16 35 02/01/17 21:09 106 133/72 02/01/17 20:34 104 16 35 02/01/17 20:00 98.7 100 20 133/72 96 Mechanical Ventilator 100 02/01/17 20:00 35 02/01/17 19:12 113 16 100 Mechanical Ventilator 02/01/17 19:02 121 02/01/17 19:00 117 16 35 02/01/17 19:00 117 16 100 Mechanical Ventilator 60 02/01/17 17:29 86 02/01/17 16:38 90 16 35 02/01/17 16:00 80 02/01/17 16:00 98.9 105 16 119/80 97 Mechanical Ventilator 35 02/01/17 15:41 103 02/01/17 14:40 98 18 35 02/01/17 12:52 96 18 35 02/01/17 12:00 98.6 98 16 122/77 99 Mechanical Ventilator 35 02/01/17 12:00 80 02/01/17 11:32 95 02/01/17 10:45 105 16 35 Intake and Output 02/01/17 02/02/17 19:00 07:00 Intake Total 100 ml 1355 ml Output Total 425 ml 400 ml Balance -325 ml 955 ml Intake IV Total 100 ml 1355 ml Output Urine Total 425 ml 400 ml General Appearance: WD/WN, other - NG tube in place HEENT: normocephalic Respiratory/Chest: chest wall non-tender, crackles/rales Cardiovascular: normal peripheral pulses, normal rate Abdomen: normal bowel sounds, soft, non tender Extremities: no cyanosis, no clubbing Skin: no rash Microbiology Date/Time Source Procedure Growth Status 02/01/17 05:05 Blood Blood Culture - Preliminary NO GROWTH AFTER 24 HOURS Resulted 02/01/17 04:50 Blood Blood Culture - Preliminary NO GROWTH AFTER 24 HOURS Resulted Laboratory Tests 02/01/17 11:45: Plasma/Serum Osmolality [Pending], Free Triiodothyronine 1.9L, Cortisol 11.4 02/01/17 16:45: Urine Color Yellow, Urine Appearance Clear, Urine pH 9, Urine Specific [place] 1.010, Urine Protein 2+H, Urine Glucose (UA) Negative, Urine Ketones 1+H, Urine Occult Blood 4+H, Urine Nitrite Negative, Urine Bilirubin Negative, Urine Urobilinogen 4H, Urine Leukocyte Esterase 1+H, Urine RBC 20-30H, Urine WBC 2-4, Urine Squamous Epithelial Cells None, Urine Bacteria Few, Urine Eosinophils None seen, Urine Osmolality [Pending], Urine Random Sodium 110, Urine Random Chloride 61, Urine Potassium Timed 65 02/02/17 03:45: Urine Eosinophils Few seen 02/02/17 03:50: Cortisol [Pending], White Blood Count 15.2H, Red Blood Count 3.68L, Hemoglobin 9.3L, Hematocrit 31.6L, Mean Corpuscular Volume 86, Mean Corpuscular Hemoglobin 25.2L, Mean Corpuscular Hemoglobin Concent 29.4L, Red Cell Distribution Width 15.2H, Platelet Count 183, Mean Platelet Volume 6.3L, Neutrophils (%) (Auto) 77.5H, Lymphocytes (%) (Auto) 7.9L, Monocytes (%) (Auto) 11.7H, Eosinophils (%) (Auto) 1.5, Basophils (%) (Auto) 1.3, Sodium Level 139, Potassium Level 4.3, Chloride Level 98, Carbon Dioxide Level 30, Anion Gap 11, Blood Urea Nitrogen 22 , Creatinine 1.2, Estimat Glomerular Filtration Rate > 60, Glucose Level 80, Uric Acid 2.6L, Calcium Level 8.5L, Phosphorus Level 2.5, Magnesium Level 1.7, Total Bilirubin 0.4, Aspartate Amino Transf (AST/SGOT) 18, Alanine Aminotransferase (ALT/SGPT) 15, Alkaline Phosphatase 64, C-Reactive Protein, Quantitative 26.3H, Pro-B-Type Natriuretic Peptide 59, Total Protein 6.0L, Albumin 2.8L, Globulin 3.2, Albumin/Globulin Ratio 0.8L, Thyroid Stimulating Hormone (TSH) 0.699 Current Medications Medications (Trade) Dose Ordered Sig/Beto Route PRN Reason Start Time Stop Time Status Last Admin Dose Admin Acetaminophen (Tylenol) 650 mg Q4H PRN ORAL FEVER 02/01/17 10:45 03/03/17 10:44 Albuterol/ Ipratropium (DuoNeb 0.5-3(2.5)mg/3ml) 3 ml Q4H PRN HHN Shortness of Breath 02/01/17 10:45 02/06/17 10:44 02/02/17 08:48 Ceftaroline Fosamil/Sodium Chloride (Teflaro/Sodium Chloride) 55 ml @ 55 mls/hr Q12H IVPB 02/01/17 10:00 02/08/17 09:59 02/02/17 09:30 Dextrose STAT PRN IV Hypoglycemia 02/01/17 10:45 03/03/17 10:44 Heparin Sodium (Porcine) (Heparin 5000 units/ml) 5,000 units EVERY 12 HOURS SUBQ 02/01/17 21:00 03/03/17 20:59 02/02/17 09:30 Levofloxacin (Levaquin) 50 ml @ 50 mls/hr Q24H IVPB 02/02/17 16:00 02/09/17 15:59 Lorazepam (Ativan 2mg/ml 1ml) 2 mg Q2H PRN IV For Anxiety 02/01/17 10:45 02/08/17 10:44 02/02/17 09:54 Metoprolol Tartrate (Lopressor) 25 mg EVERY 12 HOURS ORAL 02/01/17 21:00 03/03/17 20:59 02/02/17 09:30 Morphine Sulfate (Morphine Sulfate) 4 mg Q4H PRN IVP Severe Pain (Pain Scale 7-10) 02/01/17 10:45 02/08/17 10:44 Ondansetron HCl (Zofran) 4 mg Q6H PRN IVP Nausea & Vomiting 02/01/17 10:45 03/03/17 10:44 Polyethylene Glycol (Miralax) 17 gm DAILYPRN PRN ORAL Constipation 02/01/17 10:45 03/03/17 10:44 Sodium Chloride 1,000 ml @ 100 mls/hr Q10H IV 02/01/17 11:15 03/03/17 11:14 02/02/17 05:36 Tamsulosin HCl (Flomax) 0.4 mg BEDTIME ORAL 02/01/17 21:00 03/03/17 20:59 02/01/17 21:09 VALERIE WASHINGTON Feb 02, 2017 10:36
[2017-02-02 12:00] VITALS: BP 120/77
--- NOTE | 2017-02-02 15:38 | General Progress Note ---
Assessment/Plan Status: unchanged Assessment/Plan status: Acute renal failure- resolved Sepsis- resolving leukocytosis DM Respiratory failure RUQ pain Anemia Plan: Hydrate- monitor renal parameters- Keep BP and BS in check urine studies- Avoid nephrotoxics Subjective ROS Limited/Unobtainable: No Allergies: Coded Allergies: No Known Allergies (Unverified , 08/09/13) Objective Last 24 Hour Vital Signs Date Time Temp Pulse Resp B/P Pulse Ox O2 Delivery O2 Flow Rate FiO2 02/02/17 14:30 108 16 35 02/02/17 14:00 87 02/02/17 13:40 99.7 02/02/17 12:40 105 16 35 02/02/17 12:00 100.9 86 16 120/77 100 Mechanical Ventilator 35 02/02/17 12:00 35 02/02/17 10:35 102 18 35 02/02/17 09:30 101 123/72 02/02/17 08:48 105 18 97 Mechanical Ventilator 35 02/02/17 08:48 105 18 35 02/02/17 08:00 106 02/02/17 08:00 97.0 101 16 123/72 95 Mechanical Ventilator 35 02/02/17 08:00 35 02/02/17 07:08 98 16 35 02/02/17 05:02 101 16 35 02/02/17 04:00 98.2 97 20 113/73 96 Mechanical Ventilator 97 02/02/17 04:00 35 02/02/17 03:59 93 02/02/17 03:16 99 16 35 02/02/17 00:49 102 16 100 Mechanical Ventilator 02/02/17 00:41 111 16 100 Mechanical Ventilator 60 02/02/17 00:40 111 16 35 02/02/17 00:00 98.2 90 21 104/75 99 Mechanical Ventilator 90 02/02/17 00:00 35 02/01/17 23:49 87 02/01/17 22:56 98 16 35 02/01/17 21:09 106 133/72 02/01/17 20:34 104 16 35 02/01/17 20:00 98.7 100 20 133/72 96 Mechanical Ventilator 100 02/01/17 20:00 35 02/01/17 19:12 113 16 100 Mechanical Ventilator 02/01/17 19:02 121 02/01/17 19:00 117 16 35 02/01/17 19:00 117 16 100 Mechanical Ventilator 60 02/01/17 17:29 86 02/01/17 16:38 90 16 35 02/01/17 16:00 80 02/01/17 16:00 98.9 105 16 119/80 97 Mechanical Ventilator 35 02/01/17 15:41 103 Intake and Output 02/01/17 02/02/17 19:00 07:00 Intake Total 100 ml 1355 ml Output Total 425 ml 400 ml Balance -325 ml 955 ml Intake IV Total 100 ml 1355 ml Output Urine Total 425 ml 400 ml Laboratory Tests 02/01/17 16:45: Urine Color Yellow, Urine Appearance Clear, Urine pH 9, Urine Specific [place] 1.010, Urine Protein 2+H, Urine Glucose (UA) Negative, Urine Ketones 1+H, Urine Occult Blood 4+H, Urine Nitrite Negative, Urine Bilirubin Negative, Urine Urobilinogen 4H, Urine Leukocyte Esterase 1+H, Urine RBC 20-30H, Urine WBC 2-4, Urine Squamous Epithelial Cells None, Urine Bacteria Few, Urine Eosinophils None seen, Urine Osmolality [Pending], Urine Random Sodium 110, Urine Random Chloride 61, Urine Potassium Timed 65 02/02/17 03:45: Urine Eosinophils Few seen 02/02/17 03:50: White Blood Count 15.2H, Red Blood Count 3.68L, Hemoglobin 9.3L, Hematocrit 31.6L, Mean Corpuscular Volume 86, Mean Corpuscular Hemoglobin 25.2L, Mean Corpuscular Hemoglobin Concent 29.4L, Red Cell Distribution Width 15.2H, Platelet Count 183, Mean Platelet Volume 6.3L, Neutrophils (%) (Auto) 77.5H, Lymphocytes (%) (Auto) 7.9L, Monocytes (%) (Auto) 11.7H, Eosinophils (%) (Auto) 1.5, Basophils (%) (Auto) 1.3, Sodium Level 139, Potassium Level 4.3, Chloride Level 98, Carbon Dioxide Level 30, Anion Gap 11, Blood Urea Nitrogen 22, Creatinine 1.2, Estimat Glomerular Filtration Rate > 60, Glucose Level 80, Uric Acid 2.6L, Calcium Level 8.5L, Phosphorus Level 2.5, Magnesium Level 1.7, Total Bilirubin 0.4, Aspartate Amino Transf (AST/SGOT) 18, Alanine Aminotransferase ( ALT/SGPT) 15, Alkaline Phosphatase 64, C-Reactive Protein, Quantitative 26.3H, Pro-B-Type Natriuretic Peptide 59, Total Protein 6.0L, Albumin 2.8L, Globulin 3.2, Albumin/Globulin Ratio 0.8L, Thyroid Stimulating Hormone (TSH) 0.699, Cortisol [Pending] Height (Feet): 6 Weight (Pounds): 205 General Appearance: no apparent distress Cardiovascular: tachycardia Respiratory/Chest: decreased breath sounds Abdomen: soft SAMANTHA ALLRED Feb 02, 2017 15:38
[2017-02-02 16:00] VITALS: BP 105/64
[2017-02-02] MEDS ORDERED: Levofloxacin 250mg/D5W 50ml IVPB SCH (16:00)
[2017-02-02 20:00] VITALS: BP 113/56
[2017-02-02] MEDS: Tamsulosin 0.4mg cap ORAL SCH (21:25)
[2017-02-02] MEDS: CEFTAROLINE IV SCH (21:25)
[2017-02-02] MEDS: NS IV SCH (21:25)
--- NOTE | 2017-02-02 22:00 | General Progress Note ---
Assessment/Plan Assessment/Plan Assessment - RUQ abd pain - pyelo - diverticulosis - mild anemia - Azotemia - Resp failure / Trach Recommendations - po diet as tolerated - abx - follow labs and exam - patient declines EGD/Colon Subjective Allergies: Coded Allergies: No Known Allergies (Unverified , 08/09/13) Objective Last 24 Hour Vital Signs Date Time Temp Pulse Resp B/P Pulse Ox O2 Delivery O2 Flow Rate FiO2 02/02/17 21:25 87 113/56 02/02/17 21:10 82 16 35 02/02/17 19:00 85 16 35 02/02/17 16:33 82 16 35 02/02/17 16:00 87 02/02/17 16:00 35 02/02/17 16:00 98.2 84 16 105/64 98 Mechanical Ventilator 35 02/02/17 14:30 108 16 35 02/02/17 14:00 87 02/02/17 13:40 99.7 02/02/17 12:40 105 16 35 02/02/17 12:00 100.9 86 16 120/77 100 Mechanical Ventilator 35 02/02/17 12:00 35 02/02/17 10:35 102 18 35 02/02/17 09:30 101 123/72 02/02/17 08:48 105 18 97 Mechanical Ventilator 35 02/02/17 08:48 105 18 35 02/02/17 08:00 106 02/02/17 08:00 97.0 101 16 123/72 95 Mechanical Ventilator 35 02/02/17 08:00 35 02/02/17 07:08 98 16 35 02/02/17 05:02 101 16 35 02/02/17 04:00 98.2 97 20 113/73 96 Mechanical Ventilator 97 02/02/17 04:00 35 02/02/17 03:59 93 02/02/17 03:16 99 16 35 02/02/17 00:49 102 16 100 Mechanical Ventilator 02/02/17 00:41 111 16 100 Mechanical Ventilator 60 02/02/17 00:40 111 16 35 02/02/17 00:00 98.2 90 21 104/75 99 Mechanical Ventilator 90 02/02/17 00:00 35 02/01/17 23:49 87 02/01/17 22:56 98 16 35 Intake and Output 02/01/17 02/02/17 19:00 07:00 Intake Total 100 ml 1355 ml Output Total 425 ml 400 ml Balance -325 ml 955 ml IV Total 100 ml 1355 ml Output Urine Total 425 ml 400 ml Laboratory Tests 02/02/17 03:45: Urine Eosinophils Few seen 02/02/17 03:50: White Blood Count 15.2H, Red Blood Count 3.68L, Hemoglobin 9.3L, Hematocrit 31.6L, Mean Corpuscular Volume 86, Mean Corpuscular Hemoglobin 25.2L, Mean Corpuscular Hemoglobin Concent 29.4L, Red Cell Distribution Width 15.2H, Platelet Count 183, Mean Platelet Volume 6.3L, Neutrophils (%) (Auto) 77.5H, Lymphocytes (%) (Auto) 7.9L, Monocytes (%) (Auto) 11.7H, Eosinophils (%) (Auto) 1.5, Basophils (%) (Auto) 1.3, Sodium Level 139, Potassium Level 4.3, Chloride Level 98, Carbon Dioxide Level 30, Anion Gap 11, Blood Urea Nitrogen 22, Creatinine 1.2, Estimat Glomerular Filtration Rate > 60, Glucose Level 80, Uric Acid 2.6L, Calcium Level 8.5L, Phosphorus Level 2.5, Magnesium Level 1.7, Total Bilirubin 0.4, Aspartate Amino Transf (AST/SGOT) 18, Alanine Aminotransferase ( ALT/SGPT) 15, Alkaline Phosphatase 64, C-Reactive Protein, Quantitative 26.3H, Pro-B-Type Natriuretic Peptide 59, Total Protein 6.0L, Albumin 2.8L, Globulin 3.2, Albumin/Globulin Ratio 0.8L, Thyroid Stimulating Hormone (TSH) 0.699, Cortisol [Pending] Height (Feet): 6 Weight (Pounds): 205 Objective Obese AA man NCAT (+) trach CTA RRR Soft ND, minimal RUQ TTP no edema AMANDO ALANIZ Feb 02, 2017 22:00
[2017-02-03] VITALS: BP 118/75
--- NOTE | 2017-02-03 00:58 | Consultation ---
DATE OF CONSULTATION: 02/02/2017 CONSULTING PHYSICIAN: Swathi Grove M.D. ATTENDING PHYSICIAN: Julia Greene M.D. REASON FOR CONSULTATION: Skin evaluation for any pressure ulcers and pressure ulcer management. HISTORY OF PRESENT ILLNESS: This is a 66-year-old male, a correction resident who was admitted on February 01, 2017 with perceptive pneumonia and he has been in patient receiving antibiotics. He has a trach and is ventilated and is incontinent. PAST MEDICAL HISTORY: History of chronic respiratory failure status post tracheostomy, hypertension, asthma, chronic obstructive pulmonary disease and diabetes. MEDICATIONS: The patient's current medications are levofloxacin, ceftaroline, amlodipine, metoprolol, Flomax, heparin subcutaneous, albuterol, Tylenol, morphine, MiraLax, Zofran and lorazepam. ALLERGIES: No known drug allergies. REVIEW OF SYSTEMS: As above. PHYSICAL EXAMINATION: The patient currently has a temperature of 99.7 degrees, his pulse ranges from 80 to 108, his blood pressure is 105/64, pulse ox 98%, respiratory rate of 16, and he is on a vent. The patient is alert. He is arousable, in no acute distress. His abdomen is soft. Slightly distended. His extremities have full range of motion. Skin, I completed a head-to-toe assessment of the patient. He currently has a Damon in place. I did not visualize any pressure ulcers or areas of nonblanching. I inspected both feet and his heels. His heels were dry, but he had no pressure ulcers or area of nonblanching. RECOMMENDATION: This is a patient who is trach dependent on a vent with chronic medical problems and also who is incontinent for pressure wound management prophylaxis. Recommend turn and reposition q.2 hours. Please make sure that the sheaths were not bunched under the patient and reduce tear when rolling him. Also please float his heels by placing pillows underneath the calves and make sure to check his feet for any wound since the patient is diabetic. In general, incontinence care, recommend Barrier zinc oxide on the sacral area t.i.d. and p.r.n. Swathi Grove M.D. DR: PAULY JOB#: [id number] CC:
--- NOTE | 2017-02-03 03:47 | Consultation ---
DATE OF CONSULTATION: NOTE: "POOR AUDIO QUALITY" INFECTIOUS DISEASES CONSULTATION CONSULTING PHYSICIAN: Edy Tovar M.D. REFERRING PHYSICIAN: Julia Greene M.D. REASON FOR CONSULTATION: Evaluation of patient for sepsis, pneumonia, and antibiotic management. HISTORY OF PRESENT ILLNESS: The patient is a 66-year-old male with multiple medical problems admitted to this medical center with the impression of severe sepsis. The patient was found to have leukocytosis. the patient did not have fever, however, during hospitalization, the patient had . The patient will be started on IV antibiotic. An infectious diseases consultation has been requested for further evaluation of patient's antibiotic management. The patient at the long term apparently oxygen, however, the patient has been placed on the vent due to worsening of respiratory status. Reportedly, at the time of admission, the patient abdominal pain. PAST MEDICAL HISTORY: 1. History of chronic respiratory failure. 2. History of hypertension. 3. Asthma. 4. COPD. 5. Diabetes. PAST SURGICAL HISTORY: Significant for trach and PEG placement. ALLERGIES: No known drug allergies. MEDICATIONS: Teflaro and Levaquin. SOCIAL HISTORY: The patient lives in a long term. REVIEW OF SYSTEMS: Unobtainable. PHYSICAL EXAMINATION: VITAL SIGNS: Temperature 98 degrees, blood pressure , pulse 83, and respiratory rate 18. HEENT: Mild pale conjunctiva. No icterus. NECK: No lymphadenopathy. CHEST: Coarse breathing sounds. HEART: S1 and S2. ABDOMEN: Soft and nontender. EXTREMITIES: No cyanosis. NEUROLOGIC: Alert and awake. LABORATORY AND DIAGNOSTIC DATA: White blood cells 21, today is 16.2, hemoglobin 9.6, and platelets 183,000. BUN 22 and creatinine 1.2. ALT, AST, and alkaline phosphatase unremarkable. Blood culture is pending. Ultrasound of the abdomen, negative for gallstone cholecystitis. CT of the abdomen, pyelonephritis, right lower lobe consolidation disease. Chest x-ray showed right basilar consolidation. Lower extremity Doppler, no evidence of DVT. ASSESSMENT: The patient is a 66-year-old male with multiple medical problems, has been admitted to this medical center with pneumonia, sepsis, and leukocytosis. UA shows some hematuria. possible pyelonephritis. The patient is on broad-spectrum coverage for the treatment of pneumonia and urinary tract infection. PLAN: 1. We will continue the patient on Teflaro and Levaquin day #2. 2. Monitor CBC. 3. Monitor BMP. 4. Monitor cultures (blood, sputum, and urine). 5. Monitor chest x-ray. 6. Monitor the patient's clinical course and laboratories and based on those, we will do further recommendation. Thank you, Dr. Greene, for allowing me to participate in the care of this patient. I will follow the patient with you during this hospitalization. Edy Tovar M.D. DR: Lori JOB#: [id number] CC:
[2017-02-03 04:00] VITALS: BP 134/78
[2017-02-03 06:00] LABS: BASOPHILS % (AUTO) 1.3 % (0.0-2.0); EOSINOPHILS % (AUTO) 2.4 % (0.0-3.0); LYMPHOCYTES % (AUTO) 13.4 % (20.0-45.0); MEAN CORPUSCULAR HGB CONC 29.2 G/DL (32.0-36.0); MEAN CORPUSCULAR VOLUME 86 FL (80-99); MEAN PLATELET VOLUME 7.2 FL (6.5-10.1); MONOCYTES % (AUTO) 9.3 % (1.0-10.0); NEUTROPHILS % (AUTO) 73.5 % (45.0-75.0); PLATELET COUNT 187 K/UL (150-450); RED BLOOD COUNT 3.64 M/UL (4.70-6.10); RED CELL DISTRIBUTION WIDTH 15.2 % (11.6-14.8); WHITE BLOOD COUNT 13.8 K/UL (4.8-10.8)
[2017-02-03] MEDS: LORazepam Inj 2mg/ml 1ml IV PRN ×2 (06:01→09:28)
[2017-02-03 06:20] LABS: ALANINE AMINOTRANSFERASE 13 U/L (3-41); ALBUMIN/GLOBULIN RATIO 0.7 (1.0-2.7); ANION GAP 11 (5-15); ASPARTATE AMINO TRANSFERASE 17 U/L (5-40); CALCIUM 8.8 mg/dL (8.6-10.2); CARBON DIOXIDE 29 mEQ/L (20-30); CHLORIDE 100 mEQ/L (98-107); GLOMERULAR FILTRATION RATE > 60 mL/min (>60); HEMOLYSIS 1; MAGNESIUM 1.8 mg/dL (1.7-2.5); PHOSPHORUS 2.5 mg/dL (2.5-4.8); POTASSIUM 4.4 mEQ/L (3.4-4.9); SODIUM 140 mEQ/L (135-145); TOTAL PROTEIN 6.3 g/dL (6.6-8.7)
[2017-02-03 08:00] VITALS: BP 122/69
[2017-02-03] MEDS: Metoprolol 25mg tab ORAL SCH (09:25)
[2017-02-03] MEDS: Heparin 5000 units/ml inj SUBQ SCH ×2 (09:26→21:48)
[2017-02-03] MEDS: CEFTAROLINE IV SCH (09:27)
[2017-02-03] MEDS: NS IV SCH (09:27)
--- NOTE | 2017-02-03 10:26 | Pulmonology Progress Note ---
Assessment/Plan Problems: (1) Acute and chronic respiratory failure ([id number]) (2) Sepsis (3) CHENTE (acute kidney injury) (4) Diabetes mellitus (5) Hypertension Respiratory: monitor respiratory rate, adjust FIO2 Cardiac: continue to monitor HR/BP Renal: F/U I&O, keep IV fluid Infectious Disease: check cultures Gastrointestinal: continue feedings/current rate Endocrine: monitor blood sugar, check TSH, continue sliding scale insulin Hematologic: monitor H/H, transfuse if hgb<8.5 Neurologic: keep patient comfortable Affect: PRN ativan Prophylaxis: Heparin Disposition: keep in ICU Notes Reviewed: renal Discussed with: nurses, consultants, case specialist Subjective ROS Limited/Unobtainable: No Allergies: Coded Allergies: No Known Allergies (Unverified , 08/09/13) Objective Last 24 Hour Vital Signs Date Time Temp Pulse Resp B/P Pulse Ox O2 Delivery O2 Flow Rate FiO2 02/03/17 09:30 94 16 35 02/03/17 09:25 121 122/50 02/03/17 08:00 98.1 121 16 122/69 94 Mechanical Ventilator 35 02/03/17 08:00 35 02/03/17 07:00 96 16 35 02/03/17 05:12 98 16 50 02/03/17 04:00 50 02/03/17 04:00 98.4 117 16 134/78 99 Mechanical Ventilator 50 02/03/17 04:00 94 02/03/17 03:29 93 16 50 02/03/17 01:15 98 16 50 02/03/17 00:00 98.0 102 16 118/75 97 Mechanical Ventilator 50 02/02/17 23:44 101 02/02/17 23:13 94 16 50 02/02/17 22:45 50 02/02/17 21:25 87 113/56 02/02/17 21:10 82 16 35 02/02/17 20:00 98.4 87 16 113/56 95 Mechanical Ventilator 35 02/02/17 20:00 35 02/02/17 19:42 86 02/02/17 19:00 85 16 35 02/02/17 16:33 82 16 35 02/02/17 16:00 87 02/02/17 16:00 35 02/02/17 16:00 98.2 84 16 105/64 98 Mechanical Ventilator 35 02/02/17 14:30 108 16 35 02/02/17 14:00 87 02/02/17 13:40 99.7 02/02/17 12:40 105 16 35 02/02/17 12:00 100.9 86 16 120/77 100 Mechanical Ventilator 35 02/02/17 12:00 35 02/02/17 10:35 102 18 35 Intake and Output 02/02/17 02/03/17 19:00 07:00 Intake Total 1410 ml 1135 ml Output Total 350 ml 400 ml Balance 1060 ml 735 ml Intake Free Water 150 ml IV Total 1005 ml 705 ml Tube Feeding 195 ml 330 ml Other 60 ml 100 ml Output Urine Total 350 ml 400 ml # Bowel Movements 1 1 General Appearance: WD/WN HEENT: normocephalic, status post trach Respiratory/Chest: chest wall non-tender, lungs clear Abdomen: normal bowel sounds, soft, non tender Genitourinary: normal external genitalia Extremities: no cyanosis Skin: no rash, no lesions Microbiology Date/Time Source Procedure Growth Status 02/01/17 05:05 Blood Blood Culture - Preliminary NO GROWTH AFTER 48 HOURS Resulted 02/01/17 04:50 Blood Blood Culture - Preliminary NO GROWTH AFTER 48 HOURS Resulted 02/01/17 05:20 Nasal Nares MRSA Culture - Final NO METHICILLIN RESISTANT STAPH AUREUS... Complete 02/02/17 19:00 Urine,Clean Catch Urine Culture - Preliminary NO GROWTH Resulted 02/01/17 05:20 Rectum VRE Culture - Final Enterococcus Faecalis - Vre Complete Laboratory Tests 02/03/17 04:00: Urine Eosinophils Rare 02/03/17 04:13: White Blood Count 13.8H, Red Blood Count 3.64L, Hemoglobin 9.1L, Hematocrit 31.2L, Mean Corpuscular Volume 86, Mean Corpuscular Hemoglobin 25.0L, Mean Corpuscular Hemoglobin Concent 29.2L, Red Cell Distribution Width 15.2H, Platelet Count 187, Mean Platelet Volume 7.2, Neutrophils (%) (Auto) 73.5, Lymphocytes (%) (Auto) 13.4L, Monocytes (%) (Auto) 9.3, Eosinophils (%) (Auto) 2.4, Basophils (%) (Auto) 1.3, Sodium Level 140, Potassium Level 4.4, Chloride Level 100, Carbon Dioxide Level 29, Anion Gap 11, Blood Urea Nitrogen 16, Creatinine 1.0, Estimat Glomerular Filtration Rate > 60, Glucose Level 96, Calcium Level 8.8, Phosphorus Level 2.5, Magnesium Level 1.8, Total Bilirubin 0.3, Aspartate Amino Transf (AST/SGOT) 17, Alanine Aminotransferase (ALT/SGPT) 13, Alkaline Phosphatase 86, Total Protein 6.3L, Albumin 2.7L, Globulin 3.6, Albumin/Globulin Ratio 0.7L Current Medications Medications (Trade) Dose Ordered Sig/Beto Route PRN Reason Start Time Stop Time Status Last Admin Dose Admin Acetaminophen (Tylenol) 650 mg Q4H PRN ORAL FEVER 02/01/17 10:45 03/03/17 10:44 02/02/17 12:28 Albuterol/ Ipratropium (DuoNeb 0.5-3(2.5)mg/3ml) 3 ml Q4H PRN HHN Shortness of Breath 02/01/17 10:45 02/06/17 10:44 02/02/17 08:48 Ceftaroline Fosamil 600 mg/ Sodium Chloride 55 ml @ 55 mls/hr Q12HR@1000,2200 IV 02/02/17 22:00 02/09/17 21:59 02/03/17 09:27 Dextrose STAT PRN IV Hypoglycemia 02/01/17 10:45 03/03/17 10:44 Heparin Sodium (Porcine) (Heparin 5000 units/ml) 5,000 units EVERY 12 HOURS SUBQ 02/01/17 21:00 03/03/17 20:59 02/03/17 09:26 Levofloxacin (Levaquin) 100 ml @ 100 mls/hr Q24H IVPB 02/03/17 16:00 02/10/17 15:59 Lorazepam (Ativan 2mg/ml 1ml) 2 mg Q2H PRN IV For Anxiety 02/01/17 10:45 02/08/17 10:44 02/03/17 09:28 Metoprolol Tartrate (Lopressor) 25 mg EVERY 12 HOURS ORAL 02/01/17 21:00 03/03/17 20:59 02/03/17 09:25 Morphine Sulfate (Morphine Sulfate) 4 mg Q4H PRN IVP Severe Pain (Pain Scale 7-10) 02/01/17 10:45 02/08/17 10:44 Ondansetron HCl (Zofran) 4 mg Q6H PRN IVP Nausea & Vomiting 02/01/17 10:45 03/03/17 10:44 Polyethylene Glycol (Miralax) 17 gm DAILYPRN PRN ORAL Constipation 02/01/17 10:45 03/03/17 10:44 Sodium Chloride 1,000 ml @ 50 mls/hr Q20H IV 02/02/17 16:15 03/04/17 16:14 02/02/17 16:07 Tamsulosin HCl (Flomax) 0.4 mg BEDTIME ORAL 02/01/17 21:00 03/03/17 20:59 02/02/17 21:25 VALERIE WASHINGTON Feb 03, 2017 10:26
[2017-02-03] MEDS ORDERED: NS 275ml ONE (10:31)
[2017-02-03 12:00] VITALS: BP 100/65
--- NOTE | 2017-02-03 13:45 | General Progress Note ---
Assessment/Plan Status: stable - from renal stand Status Narrative renal parameters normal- WBCs lowering Assessment/Plan status: Acute renal failure- resolved Sepsis- resolving leukocytosis DM Respiratory failure RUQ pain Anemia Plan: Hydrate- monitor renal parameters- Keep BP and BS in check urine studies- Avoid nephrotoxics Subjective ROS Limited/Unobtainable: No Allergies: Coded Allergies: No Known Allergies (Unverified , 08/09/13) Objective Last 24 Hour Vital Signs Date Time Temp Pulse Resp B/P Pulse Ox O2 Delivery O2 Flow Rate FiO2 02/03/17 13:30 92 16 35 02/03/17 12:00 98.8 94 16 100/65 96 Mechanical Ventilator 35 02/03/17 12:00 94 02/03/17 12:00 35 02/03/17 11:26 91 16 35 02/03/17 09:30 94 16 35 02/03/17 09:25 121 122/50 02/03/17 08:00 120 02/03/17 08:00 98.1 121 16 122/69 94 Mechanical Ventilator 35 02/03/17 08:00 35 02/03/17 07:00 96 16 35 02/03/17 05:12 98 16 50 02/03/17 04:00 50 02/03/17 04:00 98.4 117 16 134/78 99 Mechanical Ventilator 50 02/03/17 04:00 94 02/03/17 03:29 93 16 50 02/03/17 01:15 98 16 50 02/03/17 00:00 98.0 102 16 118/75 97 Mechanical Ventilator 50 02/02/17 23:44 101 02/02/17 23:13 94 16 50 02/02/17 22:45 50 02/02/17 21:25 87 113/56 02/02/17 21:10 82 16 35 02/02/17 20:00 98.4 87 16 113/56 95 Mechanical Ventilator 35 02/02/17 20:00 35 02/02/17 19:42 86 02/02/17 19:00 85 16 35 02/02/17 16:33 82 16 35 02/02/17 16:00 87 02/02/17 16:00 35 02/02/17 16:00 98.2 84 16 105/64 98 Mechanical Ventilator 35 02/02/17 14:30 108 16 35 02/02/17 14:00 87 Intake and Output 02/02/17 02/03/17 19:00 07:00 Intake Total 1410 ml 1135 ml Output Total 350 ml 400 ml Balance 1060 ml 735 ml Intake Free Water 150 ml IV Total 1005 ml 705 ml Tube Feeding 195 ml 330 ml Other 60 ml 100 ml Output Urine Total 350 ml 400 ml # Bowel Movements 1 1 Laboratory Tests 02/03/17 04:00: Urine Eosinophils Rare 02/03/17 04:13: White Blood Count 13.8H, Red Blood Count 3.64L, Hemoglobin 9.1L, Hematocrit 31.2L, Mean Corpuscular Volume 86, Mean Corpuscular Hemoglobin 25.0L, Mean Corpuscular Hemoglobin Concent 29.2L, Red Cell Distribution Width 15.2H, Platelet Count 187, Mean Platelet Volume 7.2, Neutrophils (%) (Auto) 73.5, Lymphocytes (%) (Auto) 13.4L, Monocytes (%) (Auto) 9.3, Eosinophils (%) (Auto) 2.4, Basophils (%) (Auto) 1.3, Sodium Level 140, Potassium Level 4.4, Chloride Level 100, Carbon Dioxide Level 29, Anion Gap 11, Blood Urea Nitrogen 16, Creatinine 1.0, Estimat Glomerular Filtration Rate > 60, Glucose Level 96, Calcium Level 8.8, Phosphorus Level 2.5, Magnesium Level 1.8, Total Bilirubin 0.3, Aspartate Amino Transf (AST/SGOT) 17, Alanine Aminotransferase (ALT/SGPT) 13, Alkaline Phosphatase 86, Total Protein 6.3L, Albumin 2.7L, Globulin 3.6, Albumin/Globulin Ratio 0.7L Height (Feet): 6 Weight (Pounds): 205 General Appearance: no apparent distress Objective PE not changed SAMANTHA ALLRED Feb 03, 2017 13:45
[2017-02-03 16:00] VITALS: BP 126/78
--- NOTE | 2017-02-03 18:28 | General Progress Note ---
Assessment/Plan Assessment/Plan Assessment - RUQ abd TTP with negative CT/ultrasound - pyelo - diverticulosis - mild anemia - Azotemia - Resp failure / Trach Recommendations - po diet as tolerated - abx - follow labs and exam - patient still declines EGD/Colon - unless improves, will need PEG Subjective Allergies: Coded Allergies: No Known Allergies (Unverified , 08/09/13) Subjective Has NGT now did not pass swallow eval Objective Last 24 Hour Vital Signs Date Time Temp Pulse Resp B/P Pulse Ox O2 Delivery O2 Flow Rate FiO2 02/03/17 16:54 92 16 35 02/03/17 16:50 98.9 02/03/17 16:00 99.5 111 17 126/78 96 Mechanical Ventilator 35 02/03/17 16:00 111 02/03/17 16:00 35 02/03/17 15:29 94 16 35 02/03/17 13:30 92 16 35 02/03/17 12:00 98.8 94 16 100/65 96 Mechanical Ventilator 35 02/03/17 12:00 94 02/03/17 12:00 35 02/03/17 11:26 91 16 35 02/03/17 09:30 94 16 35 02/03/17 09:25 121 122/50 02/03/17 08:00 120 02/03/17 08:00 98.1 121 16 122/69 94 Mechanical Ventilator 35 02/03/17 08:00 35 02/03/17 07:00 96 16 35 02/03/17 05:12 98 16 50 02/03/17 04:00 50 02/03/17 04:00 98.4 117 16 134/78 99 Mechanical Ventilator 50 02/03/17 04:00 94 02/03/17 03:29 93 16 50 02/03/17 01:15 98 16 50 02/03/17 00:00 98.0 102 16 118/75 97 Mechanical Ventilator 50 02/02/17 23:44 101 02/02/17 23:13 94 16 50 02/02/17 22:45 50 02/02/17 21:25 87 113/56 02/02/17 21:10 82 16 35 02/02/17 20:00 98.4 87 16 113/56 95 Mechanical Ventilator 35 02/02/17 20:00 35 02/02/17 19:42 86 02/02/17 19:00 85 16 35 Intake and Output 02/02/17 02/03/17 19:00 07:00 Intake Total 1410 ml 1135 ml Output Total 350 ml 400 ml Balance 1060 ml 735 ml Intake Free Water 150 ml IV Total 1005 ml 705 ml Tube Feeding 195 ml 330 ml Other 60 ml 100 ml Output Urine Total 350 ml 400 ml # Bowel Movements 1 1 Laboratory Tests 02/03/17 04:00: Urine Eosinophils Rare 02/03/17 04:13: White Blood Count 13.8H, Red Blood Count 3.64L, Hemoglobin 9.1L, Hematocrit 31.2L, Mean Corpuscular Volume 86, Mean Corpuscular Hemoglobin 25.0L, Mean Corpuscular Hemoglobin Concent 29.2L, Red Cell Distribution Width 15.2H, Platelet Count 187, Mean Platelet Volume 7.2, Neutrophils (%) (Auto) 73.5, Lymphocytes (%) (Auto) 13.4L, Monocytes (%) (Auto) 9.3, Eosinophils (%) (Auto) 2.4, Basophils (%) (Auto) 1.3, Sodium Level 140, Potassium Level 4.4, Chloride Level 100, Carbon Dioxide Level 29, Anion Gap 11, Blood Urea Nitrogen 16, Creatinine 1.0, Estimat Glomerular Filtration Rate > 60, Glucose Level 96, Calcium Level 8.8, Phosphorus Level 2.5, Magnesium Level 1.8, Total Bilirubin 0.3, Aspartate Amino Transf (AST/SGOT) 17, Alanine Aminotransferase (ALT/SGPT) 13, Alkaline Phosphatase 86, Total Protein 6.3L, Albumin 2.7L, Globulin 3.6, Albumin/Globulin Ratio 0.7L Height (Feet): 6 Weight (Pounds): 205 Objective Obese AA man NCAT (+) trach CTA RRR Soft ND, minimal RUQ TTP no edema AMANDO ALANIZ Feb 03, 2017 18:28
--- NOTE | 2017-02-03 18:53 | Infectious Diseases Prog Note ---
Assessment/Plan Assessment/Plan A: The patient is a 66-year-old male with Sepsis pneumonia, leukocytosis Chronic respiratory failure. Hypertension. Asthma. COPD. Diabetes. SP trach a PLAN: continue the patient on Levaquin day # 3 , change Teflaro d/3 3 to Zosyn d# 1 Monitor CBC. Monitor BMP. Monitor cultures (blood, sputum, and urine). Monitor chest x-ray. Subjective Constitutional: Denies: anorexia, chills, drenching sweats, fatigue, fever, no symptoms, other Allergies: Coded Allergies: No Known Allergies (Unverified , 08/09/13) Objective Vital Signs Last 24 Hour Vital Signs Date Time Temp Pulse Resp B/P Pulse Ox O2 Delivery O2 Flow Rate FiO2 02/03/17 16:54 92 16 35 02/03/17 16:50 98.9 02/03/17 16:00 99.5 111 17 126/78 96 Mechanical Ventilator 35 02/03/17 16:00 111 02/03/17 16:00 35 02/03/17 15:29 94 16 35 02/03/17 13:30 92 16 35 02/03/17 12:00 98.8 94 16 100/65 96 Mechanical Ventilator 35 02/03/17 12:00 94 02/03/17 12:00 35 02/03/17 11:26 91 16 35 02/03/17 09:30 94 16 35 02/03/17 09:25 121 122/50 02/03/17 08:00 120 02/03/17 08:00 98.1 121 16 122/69 94 Mechanical Ventilator 35 02/03/17 08:00 35 02/03/17 07:00 96 16 35 02/03/17 05:12 98 16 50 02/03/17 04:00 50 02/03/17 04:00 98.4 117 16 134/78 99 Mechanical Ventilator 50 02/03/17 04:00 94 02/03/17 03:29 93 16 50 02/03/17 01:15 98 16 50 02/03/17 00:00 98.0 102 16 118/75 97 Mechanical Ventilator 50 02/02/17 23:44 101 02/02/17 23:13 94 16 50 02/02/17 22:45 50 02/02/17 21:25 87 113/56 02/02/17 21:10 82 16 35 02/02/17 20:00 98.4 87 16 113/56 95 Mechanical Ventilator 35 02/02/17 20:00 35 02/02/17 19:42 86 02/02/17 19:00 85 16 35 Height (Feet): 6 Weight (Pounds): 205 HEENT: atraumatic Respiratory/Chest: accessory muscle use Cardiovascular: normal rate, regular rhythm Abdomen: soft, non tender, no organomegaly Microbiology Date/Time Source Procedure Growth Status 02/01/17 05:05 Blood Blood Culture - Preliminary NO GROWTH AFTER 48 HOURS Resulted 02/01/17 04:50 Blood Blood Culture - Preliminary NO GROWTH AFTER 48 HOURS Resulted 02/01/17 05:20 Nasal Nares MRSA Culture - Final NO METHICILLIN RESISTANT STAPH AUREUS... Complete 02/02/17 19:00 Urine,Clean Catch Urine Culture - Preliminary NO GROWTH Resulted 02/01/17 05:20 Rectum VRE Culture - Final Enterococcus Faecalis - Vre Complete Laboratory Tests Test 02/03/17 04:00 02/03/17 04:13 Urine Eosinophils Rare White Blood Count 13.8 K/UL (4.8-10.8) H Red Blood Count 3.64 M/UL (4.70-6.10) L Hemoglobin 9.1 G/DL (14.2-18.0) L Hematocrit 31.2 % (42.0-52.0) L Mean Corpuscular Volume 86 FL (80-99) Mean Corpuscular Hemoglobin 25.0 PG (27.0-31.0) L Mean Corpuscular Hemoglobin Concent 29.2 G/DL (32.0-36.0) L Red Cell Distribution Width 15.2 % (11.6-14.8) H Platelet Count 187 K/UL (150-450) Mean Platelet Volume 7.2 FL (6.5-10.1) Neutrophils (%) (Auto) 73.5 % (45.0-75.0) Lymphocytes (%) (Auto) 13.4 % (20.0-45.0) L Monocytes (%) (Auto) 9.3 % (1.0-10.0) Eosinophils (%) (Auto) 2.4 % (0.0-3.0) Basophils (%) (Auto) 1.3 % (0.0-2.0) Sodium Level 140 mEQ/L (135-145) Potassium Level 4.4 mEQ/L (3.4-4.9) Chloride Level 100 mEQ/L (98-107) Carbon Dioxide Level 29 mEQ/L (20-30) Anion Gap 11 (5-15) Blood Urea Nitrogen 16 mg/dL (7-23) Creatinine 1.0 mg/dL (0.7-1.2) Estimat Glomerular Filtration Rate > 60 mL/min (>60) Glucose Level 96 mg/dL (74-106) Calcium Level 8.8 mg/dL (8.6-10.2) Phosphorus Level 2.5 mg/dL (2.5-4.8) Magnesium Level 1.8 mg/dL (1.7-2.5) Total Bilirubin 0.3 mg/dL (0.0-1.2) Aspartate Amino Transf (AST/SGOT) 17 U/L (5-40) Alanine Aminotransferase (ALT/SGPT) 13 U/L (3-41) Alkaline Phosphatase 86 U/L (40-129) Total Protein 6.3 g/dL (6.6-8.7) L Albumin 2.7 g/dL (3.5-5.2) L Globulin 3.6 g/dL Albumin/Globulin Ratio 0.7 (1.0-2.7) L Current Medications Medications (Trade) Dose Ordered Sig/Beto Route PRN Reason Start Time Stop Time Status Last Admin Dose Admin Acetaminophen (Tylenol) 650 mg Q4H PRN ORAL FEVER 02/01/17 10:45 03/03/17 10:44 02/03/17 15:51 Albuterol/ Ipratropium (DuoNeb 0.5-3(2.5)mg/3ml) 3 ml Q4H PRN HHN Shortness of Breath 02/01/17 10:45 02/06/17 10:44 02/02/17 08:48 Ceftaroline Fosamil 600 mg/ Sodium Chloride 55 ml @ 55 mls/hr Q12HR@1000,2200 IV 02/02/17 22:00 02/09/17 21:59 02/03/17 09:27 Dextrose STAT PRN IV Hypoglycemia 02/01/17 10:45 03/03/17 10:44 Heparin Sodium (Porcine) (Heparin 5000 units/ml) 5,000 units EVERY 12 HOURS SUBQ 02/01/17 21:00 03/03/17 20:59 02/03/17 09:26 Levofloxacin (Levaquin) 100 ml @ 100 mls/hr Q24H IVPB 02/03/17 16:00 02/10/17 15:59 02/03/17 15:50 Lorazepam (Ativan 2mg/ml 1ml) 2 mg Q2H PRN IV For Anxiety 02/01/17 10:45 02/08/17 10:44 02/03/17 09:28 Metoprolol Tartrate (Lopressor) 25 mg EVERY 12 HOURS GT 02/03/17 16:07 03/03/17 20:59 Morphine Sulfate (Morphine Sulfate) 4 mg Q4H PRN IVP Severe Pain (Pain Scale 7-10) 02/01/17 10:45 02/08/17 10:44 Ondansetron HCl (Zofran) 4 mg Q6H PRN IVP Nausea & Vomiting 02/01/17 10:45 03/03/17 10:44 Polyethylene Glycol (Miralax) 17 gm DAILYPRN PRN GT Constipation 02/03/17 16:07 03/03/17 10:44 Sodium Chloride 1,000 ml @ 50 mls/hr Q20H IV 02/02/17 16:15 03/04/17 16:14 02/03/17 11:46 Tamsulosin HCl (Flomax) 0.4 mg BEDTIME GT 02/03/17 16:07 03/03/17 20:59 SYLVESTER RODGERS M.D. Feb 03, 2017 18:53
[2017-02-03 20:00] VITALS: BP 101/63
[2017-02-03] MEDS: Metoprolol 25mg tab GT SCH (21:45)
[2017-02-03] MEDS: Tamsulosin 0.4mg cap GT SCH (21:45)
[2017-02-03] MEDS: Piperacillin/Tazobactam 3.375 GM in D5W 110 ML IVPB SCH (21:46)
[2017-02-04] VITALS (7 sets, daily range): BP systolic 111–128; BP diastolic 64–82
[2017-02-04] MEDS: Morphine Sulfate 4mg/ml Inj IVP PRN ×4 (01:23→23:53)
[2017-02-04 05:20] LABS: BASOPHILS % (AUTO) 1.8 % (0.0-2.0); EOSINOPHILS % (AUTO) 3.4 % (0.0-3.0); MEAN CORPUSCULAR HEMOGLOBIN 25.1 PG (27.0-31.0); MEAN CORPUSCULAR HGB CONC 29.3 G/DL (32.0-36.0); MEAN CORPUSCULAR VOLUME 86 FL (80-99); MEAN PLATELET VOLUME 7.5 FL (6.5-10.1); MONOCYTES % (AUTO) 9.6 % (1.0-10.0); NEUTROPHILS % (AUTO) 70.2 % (45.0-75.0); PLATELET COUNT 176 K/UL (150-450); RED BLOOD COUNT 3.25 M/UL (4.70-6.10); RED CELL DISTRIBUTION WIDTH 15.2 % (11.6-14.8); WHITE BLOOD COUNT 12.3 K/UL (4.8-10.8)
[2017-02-04 05:44] LABS: ALANINE AMINOTRANSFERASE 13 U/L (3-41); ALBUMIN/GLOBULIN RATIO 0.7 (1.0-2.7); ANION GAP 12 (5-15); ASPARTATE AMINO TRANSFERASE 20 U/L (5-40); CALCIUM 8.7 mg/dL (8.6-10.2); CARBON DIOXIDE 28 mEQ/L (20-30); CHLORIDE 99 mEQ/L (98-107); CREATININE 1.2 mg/dL (0.7-1.2); GLOMERULAR FILTRATION RATE > 60 mL/min (>60); HEMOLYSIS 6; POTASSIUM 4.2 mEQ/L (3.4-4.9); SODIUM 139 mEQ/L (135-145); TOTAL PROTEIN 5.8 g/dL (6.6-8.7)
[2017-02-04] MEDS: Piperacillin/Tazobactam 3.375 GM in D5W 110 ML IVPB SCH ×3 (06:35→22:45)
--- NOTE | 2017-02-04 08:58 | Pulmonology Progress Note ---
Assessment/Plan Assessment/Plan ASSESSMENT acute on chronic respiratory failure VDRF/trach sepsis PNA ARF likely 2 to dehydration -resolved dehydration HTN COPD RUQ abdominal pain anemia aspiration risk PLAN OF CARE ALEYDA status [facility] pulmonary toilet baseline ABG in am initial CXR with R lung consolidation , fup with CXR on Monday urine cx negative, blood cx preliminary negative, sputum cx swallow eval passed, but high risk for silent aspiration GI follows for now NGT feeding with strict aspiration precautions, CT A/P no definite acute process US no gallstones, no dilated ducts declined EGD./colon per GI will need PEG if no improvement ( in SNF was eating po diet though ) nephro follows ARF resolved, likely 2 to dehydration monitor renal parameters, lytes, gentle IVF, avoid nephrotoxic BP management with BB and optimize as needed Venous Duplex BLE negative anemia workup, stool OB bowel regimen case discussed and evaluated by supervising physician Subjective Allergies: Coded Allergies: No Known Allergies (Unverified , 08/09/13) Subjective leukocytosis trending down,afebrile no signs of respiratory distress on current settings SR on tele HH trending down Objective Last 24 Hour Vital Signs Date Time Temp Pulse Resp B/P Pulse Ox O2 Delivery O2 Flow Rate FiO2 02/04/17 04:57 90 16 35 02/04/17 04:00 35 02/04/17 04:00 99.0 73 16 113/73 96 Mechanical Ventilator 35 02/04/17 03:48 77 02/04/17 03:06 94 16 35 02/04/17 01:53 98.2 02/04/17 01:12 96 16 35 02/04/17 00:04 35 02/04/17 00:00 98.2 82 16 111/82 95 Mechanical Ventilator 35 02/03/17 23:36 81 02/03/17 22:58 95 16 35 02/03/17 21:45 93 101/63 02/03/17 21:11 93 16 35 02/03/17 20:57 35 02/03/17 20:00 98.8 97 16 101/63 96 Mechanical Ventilator 35 02/03/17 19:49 94 02/03/17 19:23 94 16 35 02/03/17 16:54 92 16 35 02/03/17 16:50 98.9 02/03/17 16:00 99.5 111 17 126/78 96 Mechanical Ventilator 35 02/03/17 16:00 111 02/03/17 16:00 35 02/03/17 15:29 94 16 35 02/03/17 13:30 92 16 35 02/03/17 12:00 98.8 94 16 100/65 96 Mechanical Ventilator 35 02/03/17 12:00 94 02/03/17 12:00 35 02/03/17 11:26 91 16 35 02/03/17 09:30 94 16 35 02/03/17 09:25 121 122/50 Intake and Output 02/03/17 02/04/17 19:00 07:00 Intake Total 1185 ml 1160.0 ml Output Total 280 ml 200 ml Balance 905 ml 960.0 ml Intake Free Water 200 ml 120 ml IV Total 655 ml 710.0 ml Tube Feeding 330 ml 330 ml Output Urine Total 280 ml 200 ml # Bowel Movements 1 3 General Appearance: no acute distress, other - Vent AC 600-16-35% HEENT: normocephalic, atraumatic, status post trach - Portex #7, secretions moderate, yellow, thick , other - NGT Respiratory/Chest: rhonchi - few scattered Cardiovascular: normal rate, regular rhythm, no JVD Abdomen: normal bowel sounds, soft, non tender Extremities: no edema Neurologic/Psychiatric: abnormal gait, alert, responsive Musculoskeletal: atrophy - BLE Microbiology Date/Time Source Procedure Growth Status 02/04/17 04:00 Sputum Gram Stain - Final Resulted 02/04/17 04:00 Sputum Sputum Culture Pending Resulted 02/02/17 19:00 Urine,Clean Catch Urine Culture - Preliminary NO GROWTH Resulted Laboratory Tests 02/04/17 04:00: Urine Eosinophils Nonr seen 02/04/17 04:15: White Blood Count 12.3H, Red Blood Count 3.25L, Hemoglobin 8.1L, Hematocrit 27.8L, Mean Corpuscular Volume 86, Mean Corpuscular Hemoglobin 25.1L, Mean Corpuscular Hemoglobin Concent 29.3L, Red Cell Distribution Width 15.2H, Platelet Count 176, Mean Platelet Volume 7.5, Neutrophils (%) (Auto) 70.2, Lymphocytes (%) (Auto) 15.0L, Monocytes (%) (Auto) 9.6, Eosinophils (%) (Auto) 3.4H, Basophils (%) (Auto) 1.8, Sodium Level 139, Potassium Level 4.2, Chloride Level 99, Carbon Dioxide Level 28, Anion Gap 12, Blood Urea Nitrogen 14, Creatinine 1.2, Estimat Glomerular Filtration Rate > 60, Glucose Level 115H, Calcium Level 8.7, Total Bilirubin 0.2, Aspartate Amino Transf (AST/SGOT) 20, Alanine Aminotransferase (ALT/SGPT) 13, Alkaline Phosphatase 62, Total Protein 5.8L, Albumin 2.5L, Globulin 3.3, Albumin/Globulin Ratio 0.7L Current Medications Medications (Trade) Dose Ordered Sig/Beto Route PRN Reason Start Time Stop Time Status Last Admin Dose Admin Acetaminophen (Tylenol) 650 mg Q4H PRN ORAL FEVER 02/01/17 10:45 03/03/17 10:44 02/03/17 15:51 Albuterol/ Ipratropium (DuoNeb 0.5-3(2.5)mg/3ml) 3 ml Q4H PRN HHN Shortness of Breath 02/01/17 10:45 02/06/17 10:44 02/02/17 08:48 Dextrose STAT PRN IV Hypoglycemia 02/01/17 10:45 03/03/17 10:44 Heparin Sodium (Porcine) (Heparin 5000 units/ml) 5,000 units EVERY 12 HOURS SUBQ 02/01/17 21:00 03/03/17 20:59 02/03/17 21:48 Levofloxacin (Levaquin) 100 ml @ 100 mls/hr Q24H IVPB 02/03/17 16:00 02/10/17 15:59 02/03/17 15:50 Lorazepam (Ativan 2mg/ml 1ml) 2 mg Q2H PRN IV For Anxiety 02/01/17 10:45 02/08/17 10:44 02/03/17 09:28 Metoprolol Tartrate (Lopressor) 25 mg EVERY 12 HOURS GT 02/03/17 16:07 03/03/17 20:59 02/03/17 21:45 Morphine Sulfate (Morphine Sulfate) 4 mg Q4H PRN IVP Severe Pain (Pain Scale 7-10) 02/01/17 10:45 02/08/17 10:44 02/04/17 01:23 Ondansetron HCl (Zofran) 4 mg Q6H PRN IVP Nausea & Vomiting 02/01/17 10:45 03/03/17 10:44 Piperacillin Sod/ Tazobactam Sod/ Dextrose (Zosyn/D5W) 110 ml @ 27.5 mls/hr EVERY 8 HOURS IVPB 02/03/17 22:00 02/08/17 21:59 02/04/17 06:35 Polyethylene Glycol 17 gm 17 gm DAILYPRN PRN GT Constipation 02/03/17 16:07 03/03/17 10:44 Sodium Chloride 1,000 ml @ 50 mls/hr Q20H IV 02/02/17 16:15 03/04/17 16:14 02/03/17 11:46 Tamsulosin HCl (Flomax) 0.4 mg BEDTIME GT 02/03/17 16:07 03/03/17 20:59 02/03/17 21:45 [facility] Feb 04, 2017 08:58
[2017-02-04] MEDS: DuoNeb 0.5-3(2.5)mg/3ml neb HHN PRN ×3 (09:18→23:03)
--- NOTE | 2017-02-04 10:22 | Diagnostic Imaging Report ---
Indication: DYSPNEA Technique: XRAY CHEST 1 V Comparison:02/01/2017 Findings: Tracheostomy is again seen. Bullous changes are again noted as well. Increased density is noted in the medial right base with slight blunting of the right costophrenic angle. Some pleural-parenchymal changes are also noted in the left lung base. Has been essentially no change from the prior exam. There is an NG tube in the stomach. Impression: Medial right basilar infiltrate, likely pneumonia, unchanged. Probable chronic changes the left base. COPD with bullous change Tracheostomy. Nasogastric tube in the stomach. No change from previous study.
[2017-02-04] MEDS: Metoprolol 25mg tab GT SCH ×2 (10:33→20:14)
[2017-02-04] MEDS: Heparin 5000 units/ml inj SUBQ SCH ×2 (10:33→20:19)
--- NOTE | 2017-02-04 11:00 | General Progress Note ---
Assessment/Plan Status: stable - from renal stand Assessment/Plan status: Acute renal failure- resolved Sepsis- resolving leukocytosis DM Respiratory failure RUQ pain Anemia Plan: Hydrate- monitor renal parameters- Keep BP and BS in check urine studies- Avoid nephrotoxics Subjective ROS Limited/Unobtainable: No Constitutional: Reports: malaise Allergies: Coded Allergies: No Known Allergies (Unverified , 08/09/13) Objective Last 24 Hour Vital Signs Date Time Temp Pulse Resp B/P Pulse Ox O2 Delivery O2 Flow Rate FiO2 02/04/17 10:33 93 118/64 02/04/17 09:18 93 16 35 02/04/17 08:00 98.1 78 16 118/64 95 Mechanical Ventilator 35 02/04/17 07:09 93 16 35 02/04/17 04:57 90 16 35 02/04/17 04:00 35 02/04/17 04:00 99.0 73 16 113/73 96 Mechanical Ventilator 35 02/04/17 03:48 77 02/04/17 03:06 94 16 35 02/04/17 01:53 98.2 02/04/17 01:12 96 16 35 02/04/17 00:04 35 02/04/17 00:00 98.2 82 16 111/82 95 Mechanical Ventilator 35 02/03/17 23:36 81 02/03/17 22:58 95 16 35 02/03/17 21:45 93 101/63 02/03/17 21:11 93 16 35 02/03/17 20:57 35 02/03/17 20:00 98.8 97 16 101/63 96 Mechanical Ventilator 35 02/03/17 19:49 94 02/03/17 19:23 94 16 35 02/03/17 16:54 92 16 35 02/03/17 16:50 98.9 02/03/17 16:00 99.5 111 17 126/78 96 Mechanical Ventilator 35 02/03/17 16:00 111 02/03/17 16:00 35 02/03/17 15:29 94 16 35 02/03/17 13:30 92 16 35 02/03/17 12:00 98.8 94 16 100/65 96 Mechanical Ventilator 35 02/03/17 12:00 94 02/03/17 12:00 35 02/03/17 11:26 91 16 35 Intake and Output 02/03/17 02/04/17 18:59 06:59 Intake Total 1155 ml 1190.0 ml Output Total 280 ml 200 ml Balance 875 ml 990.0 ml Intake Free Water 200 ml 120 ml IV Total 655 ml 710.0 ml Tube Feeding 300 ml 360 ml Output Urine Total 280 ml 200 ml # Bowel Movements 1 3 Laboratory Tests 02/04/17 04:00: Urine Eosinophils Nonr seen 02/04/17 04:15: White Blood Count 12.3H, Red Blood Count 3.25L, Hemoglobin 8.1L, Hematocrit 27.8L, Mean Corpuscular Volume 86, Mean Corpuscular Hemoglobin 25.1L, Mean Corpuscular Hemoglobin Concent 29.3L, Red Cell Distribution Width 15.2H, Platelet Count 176, Mean Platelet Volume 7.5, Neutrophils (%) (Auto) 70.2, Lymphocytes (%) (Auto) 15.0L, Monocytes (%) (Auto) 9.6, Eosinophils (%) (Auto) 3.4H, Basophils (%) (Auto) 1.8, Sodium Level 139, Potassium Level 4.2, Chloride Level 99, Carbon Dioxide Level 28, Anion Gap 12, Blood Urea Nitrogen 14, Creatinine 1.2, Estimat Glomerular Filtration Rate > 60, Glucose Level 115H, Calcium Level 8.7, Total Bilirubin 0.2, Aspartate Amino Transf (AST/SGOT) 20, Alanine Aminotransferase (ALT/SGPT) 13, Alkaline Phosphatase 62, Total Protein 5.8L, Albumin 2.5L, Globulin 3.3, Albumin/Globulin Ratio 0.7L Height (Feet): 6 Weight (Pounds): 205 General Appearance: no apparent distress Objective PE not changed SAMANTHA ALLRED Feb 04, 2017 10:59
--- NOTE | 2017-02-04 13:53 | General Progress Note ---
Assessment/Plan Assessment/Plan Assessment - RUQ abd TTP with negative CT/ultrasound - pyelo - diverticulosis - mild anemia - Azotemia - Resp failure / Trach Recommendations - po diet as tolerated - abx - follow labs and exam - patient still declines EGD/Colon - unless improves, will need PEG Subjective Allergies: Coded Allergies: No Known Allergies (Unverified , 08/09/13) Subjective Feels OK abd pain better tolerating NGT feeds (+) BM Objective Last 24 Hour Vital Signs Date Time Temp Pulse Resp B/P Pulse Ox O2 Delivery O2 Flow Rate FiO2 02/04/17 12:58 93 16 35 02/04/17 11:31 98.1 02/04/17 11:03 95 16 35 02/04/17 10:33 93 118/64 02/04/17 09:18 93 16 35 02/04/17 08:00 79 02/04/17 08:00 98.1 78 16 118/64 95 Mechanical Ventilator 35 02/04/17 08:00 35 02/04/17 07:09 93 16 35 02/04/17 04:57 90 16 35 02/04/17 04:00 35 02/04/17 04:00 99.0 73 16 113/73 96 Mechanical Ventilator 35 02/04/17 03:48 77 02/04/17 03:06 94 16 35 02/04/17 01:12 96 16 35 02/04/17 00:04 35 02/04/17 00:00 98.2 82 16 111/82 95 Mechanical Ventilator 35 02/03/17 23:36 81 02/03/17 22:58 95 16 35 02/03/17 21:45 93 101/63 02/03/17 21:11 93 16 35 02/03/17 20:57 35 02/03/17 20:00 98.8 97 16 101/63 96 Mechanical Ventilator 35 02/03/17 19:49 94 02/03/17 19:23 94 16 35 02/03/17 16:54 92 16 35 02/03/17 16:50 98.9 02/03/17 16:00 99.5 111 17 126/78 96 Mechanical Ventilator 35 02/03/17 16:00 111 02/03/17 16:00 35 02/03/17 15:29 94 16 35 Intake and Output 02/03/17 02/04/17 19:00 07:00 Intake Total 1185 ml 1190.0 ml Output Total 280 ml 200 ml Balance 905 ml 990.0 ml Intake Free Water 200 ml 120 ml IV Total 655 ml 710.0 ml Tube Feeding 330 ml 360 ml Output Urine Total 280 ml 200 ml # Bowel Movements 1 3 Laboratory Tests 02/04/17 04:00: Urine Eosinophils Nonr seen 02/04/17 04:15: White Blood Count 12.3H, Red Blood Count 3.25L, Hemoglobin 8.1L, Hematocrit 27.8L, Mean Corpuscular Volume 86, Mean Corpuscular Hemoglobin 25.1L, Mean Corpuscular Hemoglobin Concent 29.3L, Red Cell Distribution Width 15.2H, Platelet Count 176, Mean Platelet Volume 7.5, Neutrophils (%) (Auto) 70.2, Lymphocytes (%) (Auto) 15.0L, Monocytes (%) (Auto) 9.6, Eosinophils (%) (Auto) 3.4H, Basophils (%) (Auto) 1.8, Sodium Level 139, Potassium Level 4.2, Chloride Level 99, Carbon Dioxide Level 28, Anion Gap 12, Blood Urea Nitrogen 14, Creatinine 1.2, Estimat Glomerular Filtration Rate > 60, Glucose Level 115H, Calcium Level 8.7, Total Bilirubin 0.2, Aspartate Amino Transf (AST/SGOT) 20, Alanine Aminotransferase (ALT/SGPT) 13, Alkaline Phosphatase 62, Total Protein 5.8L, Albumin 2.5L, Globulin 3.3, Albumin/Globulin Ratio 0.7L Height (Feet): 6 Weight (Pounds): 205 Objective Obese AA man NCAT, (+) NGT (+) trach CTA RRR Soft ND, No TTP no edema AMANDO ALANIZ Feb 04, 2017 13:53
[2017-02-04] MEDS: Tamsulosin 0.4mg cap GT SCH (20:14)
[2017-02-05] VITALS (7 sets, daily range): BP systolic 102–156; BP diastolic 64–87
[2017-02-05] MEDS: DuoNeb 0.5-3(2.5)mg/3ml neb HHN PRN ×3 (02:59→22:59)
[2017-02-05 04:33] LABS: BASOPHILS % (AUTO) 1.5 % (0.0-2.0); EOSINOPHILS % (AUTO) 3.7 % (0.0-3.0); LYMPHOCYTES % (AUTO) 12.5 % (20.0-45.0); MEAN CORPUSCULAR HEMOGLOBIN 25.4 PG (27.0-31.0); MEAN CORPUSCULAR HGB CONC 29.9 G/DL (32.0-36.0); MEAN CORPUSCULAR VOLUME 85 FL (80-99); MEAN PLATELET VOLUME 6.9 FL (6.5-10.1); MONOCYTES % (AUTO) 12.4 % (1.0-10.0); NEUTROPHILS % (AUTO) 69.9 % (45.0-75.0); PLATELET COUNT 204 K/UL (150-450); RED BLOOD COUNT 3.33 M/UL (4.70-6.10); RED CELL DISTRIBUTION WIDTH 15.3 % (11.6-14.8); WHITE BLOOD COUNT 11.6 K/UL (4.8-10.8)
[2017-02-05 04:55] LABS: ANION GAP 11 (5-15); CALCIUM 8.7 mg/dL (8.6-10.2); CARBON DIOXIDE 30 mEQ/L (20-30); CHLORIDE 99 mEQ/L (98-107); CREATININE 1.1 mg/dL (0.7-1.2); GLOMERULAR FILTRATION RATE > 60 mL/min (>60); POTASSIUM 4.1 mEQ/L (3.4-4.9); SODIUM 140 mEQ/L (135-145)
[2017-02-05 05:23] LABS: HEMOGLOBIN A1C 5.9 % (< 6.0)
[2017-02-05] MEDS: LORazepam Inj 2mg/ml 1ml IV PRN (06:12)
[2017-02-05] MEDS: Piperacillin/Tazobactam 3.375 GM in D5W 110 ML IVPB SCH ×3 (06:15→22:34)
[2017-02-05 07:47] LABS: HEMOLYSIS 10; IRON 14 ug/dL (59-158); TOTAL IRON BINDING CAPACITY 180 ug/dL (250-400)
--- NOTE | 2017-02-05 08:03 | Infectious Diseases Prog Note ---
Assessment/Plan Assessment/Plan A: Sepsis Pneumonia COPD VDRF DM Inguinal hernia VRE colonization P; Continue Zosyn & Levaquin, will f/u cultures Subjective ROS Limited/Unobtainable: Yes Constitutional: Reports: no symptoms Allergies: Coded Allergies: No Known Allergies (Unverified , 08/09/13) Objective Vital Signs Last 24 Hour Vital Signs Date Time Temp Pulse Resp B/P Pulse Ox O2 Delivery O2 Flow Rate FiO2 02/05/17 06:32 111 16 35 02/05/17 05:38 92 16 35 02/05/17 04:00 98.2 122 18 156/87 92 Mechanical Ventilator 35 02/05/17 04:00 10.0 35 02/05/17 03:35 102 02/05/17 02:59 89 16 96 Mechanical Ventilator 35 02/05/17 02:58 89 16 35 02/05/17 00:56 89 16 35 02/05/17 00:00 98.2 86 16 103/67 99 Mechanical Ventilator 02/05/17 00:00 10.0 35 02/04/17 23:47 80 02/04/17 23:13 88 16 96 Mechanical Ventilator 02/04/17 23:04 88 16 96 Mechanical Ventilator 35 02/04/17 23:03 88 16 35 02/04/17 21:04 92 16 35 02/04/17 20:14 86 128/71 02/04/17 20:11 99.3 86 16 128/71 96 Mechanical Ventilator 35 02/04/17 20:00 99.3 86 16 128/71 96 Mechanical Ventilator 35 02/04/17 20:00 10.0 35 02/04/17 19:42 103 02/04/17 19:34 90 16 96 Mechanical Ventilator 02/04/17 19:24 90 16 95 Mechanical Ventilator 35 02/04/17 19:23 90 16 35 02/04/17 16:38 80 16 95 Mechanical Ventilator 02/04/17 16:30 80 16 35 02/04/17 16:28 80 18 95 Mechanical Ventilator 35 02/04/17 16:00 35 02/04/17 16:00 75 02/04/17 16:00 99.1 74 16 116/65 95 Mechanical Ventilator 35 02/04/17 15:09 74 16 35 02/04/17 12:58 93 16 35 02/04/17 12:00 98.2 73 16 112/66 97 Mechanical Ventilator 35 02/04/17 12:00 74 02/04/17 12:00 35 02/04/17 11:31 98.1 02/04/17 11:03 95 16 35 02/04/17 10:33 93 118/64 02/04/17 09:18 93 16 35 Height (Feet): 6 Weight (Pounds): 205 General Appearance: no acute distress HEENT: status post trach, other - NG tube Respiratory/Chest: lungs clear, other - on ventilator Abdomen: distended Extremities: other - mild hand edema Neurologic/Psychiatric: alert, responsive Microbiology Date/Time Source Procedure Growth Status 02/04/17 04:00 Sputum Gram Stain - Final Resulted 02/04/17 04:00 Sputum Sputum Culture Pending Resulted 02/02/17 19:00 Urine,Clean Catch Urine Culture - Final Complete Laboratory Tests Test 02/05/17 04:00 White Blood Count 11.6 K/UL (4.8-10.8) H Red Blood Count 3.33 M/UL (4.70-6.10) L Hemoglobin 8.5 G/DL (14.2-18.0) L Hematocrit 28.3 % (42.0-52.0) L Mean Corpuscular Volume 85 FL (80-99) Mean Corpuscular Hemoglobin 25.4 PG (27.0-31.0) L Mean Corpuscular Hemoglobin Concent 29.9 G/DL (32.0-36.0) L Red Cell Distribution Width 15.3 % (11.6-14.8) H Platelet Count 204 K/UL (150-450) Mean Platelet Volume 6.9 FL (6.5-10.1) Neutrophils (%) (Auto) 69.9 % (45.0-75.0) Lymphocytes (%) (Auto) 12.5 % (20.0-45.0) L Monocytes (%) (Auto) 12.4 % (1.0-10.0) H Eosinophils (%) (Auto) 3.7 % (0.0-3.0) H Basophils (%) (Auto) 1.5 % (0.0-2.0) Sodium Level 140 mEQ/L (135-145) Potassium Level 4.1 mEQ/L (3.4-4.9) Chloride Level 99 mEQ/L (98-107) Carbon Dioxide Level 30 mEQ/L (20-30) Anion Gap 11 (5-15) Blood Urea Nitrogen 9 mg/dL (7-23) Creatinine 1.1 mg/dL (0.7-1.2) Estimat Glomerular Filtration Rate > 60 mL/min (>60) Glucose Level 134 mg/dL (74-106) H Hemoglobin A1c 5.9 % (< 6.0) Calcium Level 8.7 mg/dL (8.6-10.2) Iron Level 14 ug/dL (59-158) L Total Iron Binding Capacity 180 ug/dL (250-400) L Percent Iron Saturation 8 % (15-50) L Unsaturated Iron Binding 166 ug/dL (112-346) Ferritin Pending Vitamin B12 Level Pending Folate Pending Current Medications Medications (Trade) Dose Ordered Sig/Beto Route PRN Reason Start Time Stop Time Status Last Admin Dose Admin Acetaminophen (Tylenol) 650 mg Q4H PRN ORAL FEVER 02/01/17 10:45 03/03/17 10:44 02/03/17 15:51 Albuterol/ Ipratropium (DuoNeb 0.5-3(2.5)mg/3ml) 3 ml Q4H PRN HHN Shortness of Breath 02/01/17 10:45 02/06/17 10:44 02/05/17 02:59 Dextrose STAT PRN IV Hypoglycemia 02/01/17 10:45 03/03/17 10:44 Heparin Sodium (Porcine) (Heparin 5000 units/ml) 5,000 units EVERY 12 HOURS SUBQ 02/01/17 21:00 03/03/17 20:59 02/04/17 20:19 Levofloxacin (Levaquin) 100 ml @ 100 mls/hr Q24H IVPB 02/03/17 16:00 02/10/17 15:59 02/04/17 17:06 Lorazepam (Ativan 2mg/ml 1ml) 2 mg Q2H PRN IV For Anxiety 02/01/17 10:45 02/08/17 10:44 02/05/17 06:12 Metoprolol Tartrate (Lopressor) 25 mg EVERY 12 HOURS GT 02/03/17 16:07 03/03/17 20:59 02/04/17 20:14 Morphine Sulfate (Morphine Sulfate) 4 mg Q4H PRN IVP Severe Pain (Pain Scale 7-10) 02/01/17 10:45 02/08/17 10:44 02/04/17 23:53 Ondansetron HCl (Zofran) 4 mg Q6H PRN IVP Nausea & Vomiting 02/01/17 10:45 03/03/17 10:44 Piperacillin Sod/ Tazobactam Sod/ Dextrose (Zosyn/D5W) 110 ml @ 27.5 mls/hr EVERY 8 HOURS IVPB 02/03/17 22:00 02/08/17 21:59 02/05/17 06:15 Polyethylene Glycol 17 gm 17 gm DAILYPRN PRN GT Constipation 02/03/17 16:07 03/03/17 10:44 Sodium Chloride 1,000 ml @ 50 mls/hr Q20H IV 02/02/17 16:15 03/04/17 16:14 02/05/17 06:16 Tamsulosin HCl (Flomax) 0.4 mg BEDTIME GT 02/03/17 16:07 03/03/17 20:59 02/04/17 20:14 GURPREET PATTON Feb 05, 2017 08:03
[2017-02-05 08:43] LABS: FERRITIN 107 ng/mL (10-230)
--- NOTE | 2017-02-05 09:57 | Diagnostic Imaging Report ---
Indication: SOB Technique: XRAY CHEST 1 V. Comparison: 02/04/2017 Findings: The cardiomediastinal silhouette is unchanged. No new infiltrates are identified. Impression: No significant change from prior examination.
[2017-02-05] MEDS: Metoprolol 25mg tab GT SCH ×2 (10:23→20:33)
[2017-02-05] MEDS: Heparin 5000 units/ml inj SUBQ SCH ×2 (10:25→20:39)
--- NOTE | 2017-02-05 13:14 | Pulmonology Progress Note ---
Assessment/Plan Assessment/Plan ASSESSMENT acute on chronic respiratory failure VDRF/trach sepsis PNA ARF likely 2 to dehydration -resolved dehydration HTN COPD RUQ abdominal pain anemia aspiration risk PLAN OF CARE ALEYDA status [facility] pulmonary toilet baseline ABG in am initial CXR with R lung consolidation , fup with CXR 02/05 -no new infiltrates urine cx negative, blood cx preliminary negative, sputum cx pending swallow eval passed, but high risk for silent aspiration GI follows for now NGT feeding with strict aspiration precautions, CT A/P no definite acute process US no gallstones, no dilated ducts declined EGD./colon per GI will need PEG if no improvement ( in SNF was eating po diet though ) nephro follows ARF resolved, likely 2 to dehydration monitor renal parameters, lytes, gentle IVF, avoid nephrotoxic BP management with BB and optimize as needed Venous Duplex BLE negative anemia workup, stool OB bowel regimen case discussed and evaluated by supervising physician Subjective Allergies: Coded Allergies: No Known Allergies (Unverified , 08/09/13) Subjective leukocytosis trending down,afebrile no signs of respiratory distress on current settings SR on tele Objective Last 24 Hour Vital Signs Date Time Temp Pulse Resp B/P Pulse Ox O2 Delivery O2 Flow Rate FiO2 02/05/17 10:32 98 16 35 02/05/17 10:23 105 149/78 02/05/17 08:41 105 16 35 02/05/17 08:00 100 02/05/17 08:00 98.8 89 24 149/78 98 Mechanical Ventilator 35 02/05/17 08:00 10.0 35 02/05/17 06:32 111 16 35 02/05/17 05:38 92 16 35 02/05/17 04:00 98.2 122 18 156/87 92 Mechanical Ventilator 35 02/05/17 04:00 10.0 35 02/05/17 03:35 102 02/05/17 02:59 89 16 96 Mechanical Ventilator 35 02/05/17 02:58 89 16 35 02/05/17 00:56 89 16 35 02/05/17 00:00 98.2 86 16 103/67 99 Mechanical Ventilator 02/05/17 00:00 10.0 35 02/04/17 23:47 80 02/04/17 23:13 88 16 96 Mechanical Ventilator 02/04/17 23:04 88 16 96 Mechanical Ventilator 35 02/04/17 23:03 88 16 35 02/04/17 21:04 92 16 35 02/04/17 20:14 86 128/71 02/04/17 20:11 99.3 86 16 128/71 96 Mechanical Ventilator 35 02/04/17 20:00 99.3 86 16 128/71 96 Mechanical Ventilator 35 02/04/17 20:00 10.0 35 02/04/17 19:42 103 02/04/17 19:34 90 16 96 Mechanical Ventilator 02/04/17 19:24 90 16 95 Mechanical Ventilator 35 02/04/17 19:23 90 16 35 02/04/17 16:38 80 16 95 Mechanical Ventilator 02/04/17 16:30 80 16 35 02/04/17 16:28 80 18 95 Mechanical Ventilator 35 02/04/17 16:00 35 02/04/17 16:00 75 02/04/17 16:00 99.1 74 16 116/65 95 Mechanical Ventilator 35 02/04/17 15:09 74 16 35 Intake and Output 02/04/17 02/05/17 19:00 07:00 Intake Total 1375.0 ml 1087.5 ml Output Total 600 ml 475 ml Balance 775.0 ml 612.5 ml Intake Free Water 250 ml 100 ml IV Total 765.0 ml 627.5 ml Tube Feeding 360 ml 360 ml Output Urine Total 600 ml 475 ml Objective General Appearance: no acute distress, Vent AC 600-16-35% HEENT: normocephalic, atraumatic, status post trach: Portex #7, secretions moderate, yellow, thick , NGT Respiratory/Chest: decreased BS Cardiovascular: normal rate, regular rhythm, no JVD Abdomen: normal bowel sounds, soft, non tender Extremities: no edema Neurologic/Psychiatric: abnormal gait, alert, responsive Musculoskeletal: atrophy - BLE Microbiology Date/Time Source Procedure Growth Status 02/04/17 04:00 Sputum Gram Stain - Final Resulted 02/04/17 04:00 Sputum Sputum Culture Pending Resulted 02/02/17 19:00 Urine,Clean Catch Urine Culture - Final Complete Laboratory Tests 02/05/17 04:00: White Blood Count 11.6H, Red Blood Count 3.33L, Hemoglobin 8.5L, Hematocrit 28.3L, Mean Corpuscular Volume 85, Mean Corpuscular Hemoglobin 25.4L, Mean Corpuscular Hemoglobin Concent 29.9L, Red Cell Distribution Width 15.3H, Platelet Count 204, Mean Platelet Volume 6.9, Neutrophils (%) (Auto) 69.9, Lymphocytes (%) (Auto) 12.5L, Monocytes (%) (Auto) 12.4H, Eosinophils (%) (Auto ) 3.7H, Basophils (%) (Auto) 1.5, Sodium Level 140, Potassium Level 4.1, Chloride Level 99, Carbon Dioxide Level 30, Anion Gap 11, Blood Urea Nitrogen 9 , Creatinine 1.1, Estimat Glomerular Filtration Rate > 60, Glucose Level 134H, Hemoglobin A1c 5.9, Calcium Level 8.7, Iron Level 14L, Total Iron Binding Capacity 180L, Percent Iron Saturation 8L, Unsaturated Iron Binding 166, Ferritin 107, Vitamin B12 Level 1322H, Folate [Pending] Current Medications Medications (Trade) Dose Ordered Sig/Beto Route PRN Reason Start Time Stop Time Status Last Admin Dose Admin Acetaminophen (Tylenol) 650 mg Q4H PRN ORAL FEVER 02/01/17 10:45 03/03/17 10:44 02/03/17 15:51 Albuterol/ Ipratropium (DuoNeb 0.5-3(2.5)mg/3ml) 3 ml Q4H PRN HHN Shortness of Breath 02/01/17 10:45 02/06/17 10:44 02/05/17 02:59 Dextrose STAT PRN IV Hypoglycemia 02/01/17 10:45 03/03/17 10:44 Heparin Sodium (Porcine) (Heparin 5000 units/ml) 5,000 units EVERY 12 HOURS SUBQ 02/01/17 21:00 03/03/17 20:59 02/05/17 10:25 Levofloxacin (Levaquin) 100 ml @ 100 mls/hr Q24H IVPB 02/03/17 16:00 02/10/17 15:59 02/04/17 17:06 Lorazepam (Ativan 2mg/ml 1ml) 2 mg Q2H PRN IV For Anxiety 02/01/17 10:45 02/08/17 10:44 02/05/17 06:12 Metoprolol Tartrate (Lopressor) 25 mg EVERY 12 HOURS GT 02/03/17 16:07 03/03/17 20:59 02/05/17 10:23 Morphine Sulfate (Morphine Sulfate) 4 mg Q4H PRN IVP Severe Pain (Pain Scale 7-10) 02/01/17 10:45 02/08/17 10:44 02/04/17 23:53 Ondansetron HCl (Zofran) 4 mg Q6H PRN IVP Nausea & Vomiting 02/01/17 10:45 03/03/17 10:44 Piperacillin Sod/ Tazobactam Sod/ Dextrose (Zosyn/D5W) 110 ml @ 27.5 mls/hr EVERY 8 HOURS IVPB 02/03/17 22:00 02/08/17 21:59 02/05/17 06:15 Polyethylene Glycol 17 gm 17 gm DAILYPRN PRN GT Constipation 02/03/17 16:07 03/03/17 10:44 Sodium Chloride 1,000 ml @ 50 mls/hr Q20H IV 02/02/17 16:15 03/04/17 16:14 02/05/17 06:16 Tamsulosin HCl (Flomax) 0.4 mg BEDTIME GT 02/03/17 16:07 03/03/17 20:59 02/04/17 20:14 Jose Juan (NanetteSepideh garcia NP Feb 05, 2017 13:13
--- NOTE | 2017-02-05 15:12 | General Progress Note ---
Assessment/Plan Status: stable Status Narrative from renal stand Assessment/Plan status: Acute renal failure- resolved Sepsis- resolving leukocytosis DM Respiratory failure RUQ pain Anemia Plan: Hydrate- monitor renal parameters- Keep BP and BS in check urine studies- Avoid nephrotoxics Subjective ROS Limited/Unobtainable: Yes Allergies: Coded Allergies: No Known Allergies (Unverified , 08/09/13) Objective Last 24 Hour Vital Signs Date Time Temp Pulse Resp B/P Pulse Ox O2 Delivery O2 Flow Rate FiO2 02/05/17 14:31 97 16 35 02/05/17 12:52 99 16 35 02/05/17 12:00 98.6 79 16 102/64 96 Mechanical Ventilator 96 02/05/17 12:00 83 02/05/17 12:00 10.0 35 02/05/17 10:32 98 16 35 02/05/17 10:23 105 149/78 02/05/17 08:41 105 16 35 02/05/17 08:00 100 02/05/17 08:00 98.8 89 24 149/78 98 Mechanical Ventilator 35 02/05/17 08:00 10.0 35 02/05/17 06:32 111 16 35 02/05/17 05:38 92 16 35 02/05/17 04:00 98.2 122 18 156/87 92 Mechanical Ventilator 35 02/05/17 04:00 10.0 35 02/05/17 03:35 102 02/05/17 02:59 89 16 96 Mechanical Ventilator 35 02/05/17 02:58 89 16 35 02/05/17 00:56 89 16 35 02/05/17 00:00 98.2 86 16 103/67 99 Mechanical Ventilator 02/05/17 00:00 10.0 35 02/04/17 23:47 80 02/04/17 23:13 88 16 96 Mechanical Ventilator 02/04/17 23:04 88 16 96 Mechanical Ventilator 35 02/04/17 23:03 88 16 35 02/04/17 21:04 92 16 35 02/04/17 20:14 86 128/71 02/04/17 20:11 99.3 86 16 128/71 96 Mechanical Ventilator 35 02/04/17 20:00 99.3 86 16 128/71 96 Mechanical Ventilator 35 02/04/17 20:00 10.0 35 02/04/17 19:42 103 02/04/17 19:34 90 16 96 Mechanical Ventilator 02/04/17 19:24 90 16 95 Mechanical Ventilator 35 02/04/17 19:23 90 16 35 02/04/17 16:38 80 16 95 Mechanical Ventilator 02/04/17 16:30 80 16 35 02/04/17 16:28 80 18 95 Mechanical Ventilator 35 02/04/17 16:00 35 02/04/17 16:00 75 02/04/17 16:00 99.1 74 16 116/65 95 Mechanical Ventilator 35 Intake and Output 02/04/17 02/05/17 19:00 07:00 Intake Total 1375.0 ml 1087.5 ml Output Total 600 ml 475 ml Balance 775.0 ml 612.5 ml Intake Free Water 250 ml 100 ml IV Total 765.0 ml 627.5 ml Tube Feeding 360 ml 360 ml Output Urine Total 600 ml 475 ml Laboratory Tests 02/05/17 04:00: White Blood Count 11.6H, Red Blood Count 3.33L, Hemoglobin 8.5L, Hematocrit 28.3L, Mean Corpuscular Volume 85, Mean Corpuscular Hemoglobin 25.4L, Mean Corpuscular Hemoglobin Concent 29.9L, Red Cell Distribution Width 15.3H, Platelet Count 204, Mean Platelet Volume 6.9, Neutrophils (%) (Auto) 69.9, Lymphocytes (%) (Auto) 12.5L, Monocytes (%) (Auto) 12.4H, Eosinophils (%) (Auto ) 3.7H, Basophils (%) (Auto) 1.5, Sodium Level 140, Potassium Level 4.1, Chloride Level 99, Carbon Dioxide Level 30, Anion Gap 11, Blood Urea Nitrogen 9 , Creatinine 1.1, Estimat Glomerular Filtration Rate > 60, Glucose Level 134H, Hemoglobin A1c 5.9, Calcium Level 8.7, Iron Level 14L, Total Iron Binding Capacity 180L, Percent Iron Saturation 8L, Unsaturated Iron Binding 166, Ferritin 107, Vitamin B12 Level 1322H, Folate [Pending] Height (Feet): 6 Weight (Pounds): 205 General Appearance: no apparent distress Objective PE not changed SAMANTHA ALLRED Feb 05, 2017 15:12
--- NOTE | 2017-02-05 20:30 | General Progress Note ---
Assessment/Plan Assessment/Plan Assessment - RUQ abd TTP with negative CT/ultrasound - pyelo - diverticulosis - mild anemia - Azotemia - Resp failure / Trach Recommendations - po diet as tolerated - abx - follow labs and exam - patient still declines EGD/Colon - unless improves, will need PEG Subjective Allergies: Coded Allergies: No Known Allergies (Unverified , 08/09/13) Subjective Feels OK abd pain better tolerating NGT feeds (+) BM no abdominal complaints today Objective Last 24 Hour Vital Signs Date Time Temp Pulse Resp B/P Pulse Ox O2 Delivery O2 Flow Rate FiO2 02/05/17 20:00 10.0 35 02/05/17 19:15 94 02/05/17 18:50 94 16 98 Mechanical Ventilator 02/05/17 18:42 93 16 96 Mechanical Ventilator 35 02/05/17 18:42 93 16 35 02/05/17 16:33 90 16 35 02/05/17 16:00 10.0 35 02/05/17 16:00 98.4 78 16 123/73 94 Mechanical Ventilator 35 02/05/17 16:00 98.4 78 16 123/73 94 Mechanical Ventilator 35 02/05/17 16:00 79 02/05/17 14:31 97 16 35 02/05/17 12:52 99 16 35 02/05/17 12:00 98.6 79 16 102/64 96 Mechanical Ventilator 96 02/05/17 12:00 83 02/05/17 12:00 10.0 35 02/05/17 10:32 98 16 35 02/05/17 10:23 105 149/78 02/05/17 08:41 105 16 35 02/05/17 08:00 100 02/05/17 08:00 98.8 89 24 149/78 98 Mechanical Ventilator 35 02/05/17 08:00 10.0 35 02/05/17 06:32 111 16 35 02/05/17 05:38 92 16 35 02/05/17 04:00 98.2 122 18 156/87 92 Mechanical Ventilator 35 02/05/17 04:00 10.0 35 02/05/17 03:35 102 02/05/17 02:59 89 16 96 Mechanical Ventilator 35 02/05/17 02:58 89 16 35 02/05/17 00:56 89 16 35 02/05/17 00:00 98.2 86 16 103/67 99 Mechanical Ventilator 02/05/17 00:00 10.0 35 02/04/17 23:47 80 02/04/17 23:13 88 16 96 Mechanical Ventilator 02/04/17 23:04 88 16 96 Mechanical Ventilator 35 02/04/17 23:03 88 16 35 02/04/17 21:04 92 16 35 Intake and Output 02/04/17 02/05/17 19:00 07:00 Intake Total 1375.0 ml 1087.5 ml Output Total 600 ml 475 ml Balance 775.0 ml 612.5 ml Intake Free Water 250 ml 100 ml IV Total 765.0 ml 627.5 ml Tube Feeding 360 ml 360 ml Output Urine Total 600 ml 475 ml Laboratory Tests 02/05/17 04:00: White Blood Count 11.6H, Red Blood Count 3.33L, Hemoglobin 8.5L, Hematocrit 28.3L, Mean Corpuscular Volume 85, Mean Corpuscular Hemoglobin 25.4L, Mean Corpuscular Hemoglobin Concent 29.9L, Red Cell Distribution Width 15.3H, Platelet Count 204, Mean Platelet Volume 6.9, Neutrophils (%) (Auto) 69.9, Lymphocytes (%) (Auto) 12.5L, Monocytes (%) (Auto) 12.4H, Eosinophils (%) (Auto ) 3.7H, Basophils (%) (Auto) 1.5, Sodium Level 140, Potassium Level 4.1, Chloride Level 99, Carbon Dioxide Level 30, Anion Gap 11, Blood Urea Nitrogen 9 , Creatinine 1.1, Estimat Glomerular Filtration Rate > 60, Glucose Level 134H, Hemoglobin A1c 5.9, Calcium Level 8.7, Iron Level 14L, Total Iron Binding Capacity 180L, Percent Iron Saturation 8L, Unsaturated Iron Binding 166, Ferritin 107, Vitamin B12 Level 1322H, Folate [Pending] Height (Feet): 6 Weight (Pounds): 205 Objective Obese AA man NCAT, (+) NGT (+) trach CTA RRR Soft ND, No TTP no edema AMANDO ALANIZ Feb 05, 2017 20:30
[2017-02-05] MEDS: Tamsulosin 0.4mg cap GT SCH (20:32)
[2017-02-05] MEDS: Morphine Sulfate 4mg/ml Inj IVP PRN (20:32)
[2017-02-06] VITALS: BP 114/68
[2017-02-06] MEDS: Morphine Sulfate 4mg/ml Inj IVP PRN ×3 (00:28→21:05)
[2017-02-06] MEDS: LORazepam Inj 2mg/ml 1ml IV PRN ×2 (00:53→10:04)
[2017-02-06] MEDS: DuoNeb 0.5-3(2.5)mg/3ml neb HHN PRN (02:47)
[2017-02-06 04:00] VITALS: BP 119/67
[2017-02-06] MEDS: Piperacillin/Tazobactam 3.375 GM in D5W 110 ML IVPB SCH ×2 (06:19→15:06)
[2017-02-06 08:00] VITALS: BP 132/73
[2017-02-06] MEDS ORDERED: Tubing IV Secondary IV ONE (09:35)
[2017-02-06] MEDS: Metoprolol 25mg tab GT SCH ×2 (10:04→21:00)
[2017-02-06] MEDS: Heparin 5000 units/ml inj SUBQ SCH ×2 (10:06→21:05)
--- NOTE | 2017-02-06 11:36 | Infectious Diseases Prog Note ---
Assessment/Plan Assessment/Plan A: The patient is a 66-year-old male with Sepsis improving Pneumonia, Asp improving Scx:PSA leukocytosis, SP Chronic respiratory failure. Hypertension. Asthma. COPD. Diabetes. SP trach a PLAN: continue the patient on Levaquin day # 6 / , Zosyn d# 4 / ( 02/03 SP Teflaro d/3 3 ) Monitor CBC. Monitor BMP. Monitor chest x-ray. Subjective Allergies: Coded Allergies: No Known Allergies (Unverified , 08/09/13) Subjective removed NG tube Objective Vital Signs Last 24 Hour Vital Signs Date Time Temp Pulse Resp B/P Pulse Ox O2 Delivery O2 Flow Rate FiO2 02/06/17 10:31 91 16 35 02/06/17 10:04 106 132/73 02/06/17 09:12 89 16 35 02/06/17 08:00 100.0 106 17 132/73 98 Mechanical Ventilator 35 02/06/17 06:31 86 16 35 02/06/17 05:28 88 17 35 02/06/17 04:00 99.6 93 16 119/67 94 Mechanical Ventilator 35 02/06/17 04:00 10.0 35 02/06/17 03:40 87 02/06/17 02:54 95 16 99 Mechanical Ventilator 02/06/17 02:47 93 16 35 02/06/17 02:47 93 16 97 Mechanical Ventilator 35 02/06/17 01:00 89 17 35 02/06/17 00:00 10.0 35 02/06/17 00:00 98.4 83 16 114/68 94 Mechanical Ventilator 35 02/05/17 23:44 84 02/05/17 23:07 91 16 99 Mechanical Ventilator 02/05/17 22:59 89 16 35 02/05/17 22:59 89 16 98 Mechanical Ventilator 35 02/05/17 21:14 94 16 35 02/05/17 20:33 88 127/70 02/05/17 20:31 98.6 88 16 127/70 95 Mechanical Ventilator 35 02/05/17 20:00 10.0 35 02/05/17 20:00 98.6 88 16 127/70 95 Mechanical Ventilator 35 02/05/17 19:15 94 02/05/17 18:50 94 16 98 Mechanical Ventilator 02/05/17 18:42 93 16 96 Mechanical Ventilator 35 02/05/17 18:42 93 16 35 02/05/17 16:33 90 16 35 02/05/17 16:00 10.0 35 02/05/17 16:00 98.4 78 16 123/73 94 Mechanical Ventilator 35 02/05/17 16:00 98.4 78 16 123/73 94 Mechanical Ventilator 35 02/05/17 16:00 79 02/05/17 14:31 97 16 35 02/05/17 12:52 99 16 35 02/05/17 12:00 98.6 79 16 102/64 96 Mechanical Ventilator 96 02/05/17 12:00 83 02/05/17 12:00 10.0 35 Height (Feet): 6 Weight (Pounds): 205 HEENT: atraumatic Respiratory/Chest: normal breath sounds Cardiovascular: normal rate Microbiology Date/Time Source Procedure Growth Status 02/04/17 04:00 Sputum Gram Stain - Final Resulted 02/04/17 04:00 Sputum Culture - Preliminary Pseudomonas Aeruginosa Resulted Current Medications Medications (Trade) Dose Ordered Sig/Beto Route PRN Reason Start Time Stop Time Status Last Admin Dose Admin Acetaminophen (Tylenol) 650 mg Q4H PRN ORAL FEVER 02/01/17 10:45 03/03/17 10:44 02/06/17 10:04 Dextrose STAT PRN IV Hypoglycemia 02/01/17 10:45 03/03/17 10:44 Heparin Sodium (Porcine) (Heparin 5000 units/ml) 5,000 units EVERY 12 HOURS SUBQ 02/01/17 21:00 03/03/17 20:59 02/06/17 10:06 Levofloxacin (Levaquin) 100 ml @ 100 mls/hr Q24H IVPB 02/03/17 16:00 02/10/17 15:59 02/05/17 15:27 Lorazepam (Ativan 2mg/ml 1ml) 2 mg Q2H PRN IV For Anxiety 02/01/17 10:45 02/08/17 10:44 02/06/17 10:04 Metoprolol Tartrate (Lopressor) 25 mg EVERY 12 HOURS GT 02/03/17 16:07 03/03/17 20:59 02/06/17 10:04 Morphine Sulfate (Morphine Sulfate) 4 mg Q4H PRN IVP Severe Pain (Pain Scale 7-10) 02/01/17 10:45 02/08/17 10:44 02/06/17 04:54 Ondansetron HCl (Zofran) 4 mg Q6H PRN IVP Nausea & Vomiting 02/01/17 10:45 03/03/17 10:44 Piperacillin Sod/ Tazobactam Sod/ Dextrose (Zosyn/D5W) 110 ml @ 27.5 mls/hr EVERY 8 HOURS IVPB 02/03/17 22:00 02/08/17 21:59 02/06/17 06:19 Polyethylene Glycol 17 gm 17 gm DAILYPRN PRN GT Constipation 02/03/17 16:07 03/03/17 10:44 Sodium Chloride 1,000 ml @ 50 mls/hr Q20H IV 02/02/17 16:15 03/04/17 16:14 02/05/17 06:16 Tamsulosin HCl (Flomax) 0.4 mg BEDTIME GT 02/03/17 16:07 03/03/17 20:59 02/05/17 20:32 SYLVESTER RODGERS M.D. Feb 06, 2017 11:36
[2017-02-06 12:00] VITALS: BP 124/76
--- NOTE | 2017-02-06 12:35 | General Progress Note ---
Assessment/Plan Status: unchanged Assessment/Plan status: Acute renal failure- resolved Sepsis- resolving leukocytosis DM Respiratory failure RUQ pain Anemia Plan: no labs today Hydrate- monitor renal parameters- Keep BP and BS in check urine studies- Avoid nephrotoxics Subjective ROS Limited/Unobtainable: Yes Allergies: Coded Allergies: No Known Allergies (Unverified , 08/09/13) Objective Last 24 Hour Vital Signs Date Time Temp Pulse Resp B/P Pulse Ox O2 Delivery O2 Flow Rate FiO2 02/06/17 11:15 99.0 02/06/17 10:31 91 16 35 02/06/17 10:04 106 132/73 02/06/17 09:12 89 16 35 02/06/17 08:00 103 02/06/17 08:00 10.0 35 02/06/17 08:00 100.0 106 17 132/73 98 Mechanical Ventilator 35 02/06/17 06:31 86 16 35 02/06/17 05:28 88 17 35 02/06/17 04:00 99.6 93 16 119/67 94 Mechanical Ventilator 35 02/06/17 04:00 10.0 35 02/06/17 03:40 87 02/06/17 02:54 95 16 99 Mechanical Ventilator 02/06/17 02:47 93 16 35 02/06/17 02:47 93 16 97 Mechanical Ventilator 35 02/06/17 01:00 89 17 35 02/06/17 00:00 10.0 35 02/06/17 00:00 98.4 83 16 114/68 94 Mechanical Ventilator 35 02/05/17 23:44 84 02/05/17 23:07 91 16 99 Mechanical Ventilator 02/05/17 22:59 89 16 35 02/05/17 22:59 89 16 98 Mechanical Ventilator 35 02/05/17 21:14 94 16 35 02/05/17 20:33 88 127/70 02/05/17 20:31 98.6 88 16 127/70 95 Mechanical Ventilator 35 02/05/17 20:00 10.0 35 02/05/17 20:00 98.6 88 16 127/70 95 Mechanical Ventilator 35 02/05/17 19:15 94 02/05/17 18:50 94 16 98 Mechanical Ventilator 02/05/17 18:42 93 16 96 Mechanical Ventilator 35 02/05/17 18:42 93 16 35 02/05/17 16:33 90 16 35 02/05/17 16:00 10.0 35 02/05/17 16:00 98.4 78 16 123/73 94 Mechanical Ventilator 35 02/05/17 16:00 98.4 78 16 123/73 94 Mechanical Ventilator 35 02/05/17 16:00 79 02/05/17 14:31 97 16 35 02/05/17 12:52 99 16 35 Intake and Output 02/05/17 02/06/17 19:00 07:00 Intake Total 1432.5 ml 810 ml Output Total 350 ml 1350 ml Balance 1082.5 ml -540 ml Intake Free Water 250 ml IV Total 792.5 ml 450 ml Tube Feeding 390 ml 360 ml Output Urine Total 350 ml 1350 ml Height (Feet): 6 Weight (Pounds): 205 General Appearance: no apparent distress Objective PE not changed SAMANTHA ALLRED Feb 06, 2017 12:35
--- NOTE | 2017-02-06 12:55 | Pulmonology Progress Note ---
Assessment/Plan Problems: (1) Acute and chronic respiratory failure ([id number]) (2) Sepsis (3) CHENTE (acute kidney injury) (4) Diabetes mellitus (5) Hypertension Respiratory: monitor respiratory rate, CXR Cardiac: start pressors, continue to monitor HR/BP Renal: F/U I&O, keep IV fluid, check electrolytes Infectious Disease: check cultures, continue antibiotics Gastrointestinal: continue feedings/current rate Endocrine: monitor blood sugar, check HgA1C, continue sliding scale insulin Hematologic: transfuse if hgb<8.5 Neurologic: PRN Ativan, keep patient comfortable Affect: PRN ativan Prophylaxis: Protonix, Heparin Notes Reviewed: 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 services 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, renal Discussed with: nurses, consultants, comp field case manager Subjective ROS Limited/Unobtainable: No Allergies: Coded Allergies: No Known Allergies (Unverified , 08/09/13) Objective Last 24 Hour Vital Signs Date Time Temp Pulse Resp B/P Pulse Ox O2 Delivery O2 Flow Rate FiO2 02/06/17 12:00 99.0 113 22 124/76 97 Mechanical Ventilator 35 02/06/17 11:15 99.0 02/06/17 10:31 91 16 35 02/06/17 10:04 106 132/73 02/06/17 09:12 89 16 35 02/06/17 08:00 103 02/06/17 08:00 10.0 35 02/06/17 08:00 100.0 106 17 132/73 98 Mechanical Ventilator 35 02/06/17 06:31 86 16 35 02/06/17 05:28 88 17 35 02/06/17 04:00 99.6 93 16 119/67 94 Mechanical Ventilator 35 02/06/17 04:00 10.0 35 02/06/17 03:40 87 02/06/17 02:54 95 16 99 Mechanical Ventilator 02/06/17 02:47 93 16 35 02/06/17 02:47 93 16 97 Mechanical Ventilator 35 02/06/17 01:00 89 17 35 02/06/17 00:00 10.0 35 02/06/17 00:00 98.4 83 16 114/68 94 Mechanical Ventilator 35 02/05/17 23:44 84 02/05/17 23:07 91 16 99 Mechanical Ventilator 02/05/17 22:59 89 16 35 02/05/17 22:59 89 16 98 Mechanical Ventilator 35 02/05/17 21:14 94 16 35 02/05/17 20:33 88 127/70 02/05/17 20:31 98.6 88 16 127/70 95 Mechanical Ventilator 35 02/05/17 20:00 10.0 35 02/05/17 20:00 98.6 88 16 127/70 95 Mechanical Ventilator 35 02/05/17 19:15 94 02/05/17 18:50 94 16 98 Mechanical Ventilator 02/05/17 18:42 93 16 96 Mechanical Ventilator 35 02/05/17 18:42 93 16 35 02/05/17 16:33 90 16 35 02/05/17 16:00 10.0 35 02/05/17 16:00 98.4 78 16 123/73 94 Mechanical Ventilator 35 02/05/17 16:00 98.4 78 16 123/73 94 Mechanical Ventilator 35 02/05/17 16:00 79 02/05/17 14:31 97 16 35 Intake and Output 02/05/17 02/06/17 19:00 07:00 Intake Total 1432.5 ml 810 ml Output Total 350 ml 1350 ml Balance 1082.5 ml -540 ml Intake Free Water 250 ml IV Total 792.5 ml 450 ml Tube Feeding 390 ml 360 ml Output Urine Total 350 ml 1350 ml General Appearance: WD/WN HEENT: normocephalic, atraumatic Respiratory/Chest: chest wall non-tender, lungs clear Cardiovascular: normal peripheral pulses, normal rate Abdomen: normal bowel sounds, soft, non tender Genitourinary: normal external genitalia Skin: no lesions 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 normal Microbiology Date/Time Source Procedure Growth Status 02/04/17 04:00 Sputum Gram Stain - Final Resulted 02/04/17 04:00 Sputum Culture - Preliminary Pseudomonas Aeruginosa Resulted Current Medications Medications (Trade) Dose Ordered Sig/Beto Route PRN Reason Start Time Stop Time Status Last Admin Dose Admin Acetaminophen (Tylenol) 650 mg Q4H PRN ORAL FEVER 02/01/17 10:45 03/03/17 10:44 02/06/17 10:04 Dextrose STAT PRN IV Hypoglycemia 02/01/17 10:45 03/03/17 10:44 Heparin Sodium (Porcine) (Heparin 5000 units/ml) 5,000 units EVERY 12 HOURS SUBQ 02/01/17 21:00 03/03/17 20:59 02/06/17 10:06 Levofloxacin (Levaquin) 100 ml @ 100 mls/hr Q24H IVPB 02/03/17 16:00 02/10/17 15:59 02/05/17 15:27 Lorazepam (Ativan 2mg/ml 1ml) 2 mg Q2H PRN IV For Anxiety 02/01/17 10:45 02/08/17 10:44 02/06/17 10:04 Metoprolol Tartrate (Lopressor) 25 mg EVERY 12 HOURS GT 02/03/17 16:07 03/03/17 20:59 02/06/17 10:04 Morphine Sulfate (Morphine Sulfate) 4 mg Q4H PRN IVP Severe Pain (Pain Scale 7-10) 02/01/17 10:45 02/08/17 10:44 02/06/17 04:54 Ondansetron HCl (Zofran) 4 mg Q6H PRN IVP Nausea & Vomiting 02/01/17 10:45 03/03/17 10:44 Piperacillin Sod/ Tazobactam Sod/ Dextrose (Zosyn/D5W) 110 ml @ 27.5 mls/hr EVERY 8 HOURS IVPB 02/03/17 22:00 02/08/17 21:59 02/06/17 06:19 Polyethylene Glycol 17 gm 17 gm DAILYPRN PRN GT Constipation 02/03/17 16:07 03/03/17 10:44 Sodium Chloride 1,000 ml @ 50 mls/hr Q20H IV 02/02/17 16:15 03/04/17 16:14 02/05/17 06:16 Tamsulosin HCl (Flomax) 0.4 mg BEDTIME GT 02/03/17 16:07 03/03/17 20:59 02/05/17 20:32 VALERIE WASHINGTON Feb 06, 2017 12:55
--- NOTE | 2017-02-06 14:14 | GI Progress Note ---
Assessment/Plan Problems: (1) Iron (Fe) deficiency anemia ICD Codes: D50.9 - Iron deficiency anemia, unspecified SNOMED: 06757576 (2) RLL pneumonia ICD Codes: J18.1 - Lobar pneumonia, unspecified organism SNOMED: 311632599 (3) Right upper quadrant abdominal pain ICD Codes: R10.11 - Right upper quadrant pain SNOMED: 440233902 (4) Diabetes mellitus ICD Codes: E11.9 - Type 2 diabetes mellitus without complications SNOMED: 81027149 (5) Sepsis ICD Codes: A41.9 - Sepsis, unspecified organism SNOMED: 99354034 Status: unchanged Status Narrative Discussed with Dr. Hsu. Assessment/Plan Assessment - RUQ abd TTP with negative CT/ultrasound most likely from R sided pneumonia. - pyelo - diverticulosis - mild anemia - Azotemia - Resp failure / Trach Recommendations NGT, po diet as tolerated, unless improves, will need PEG refused EGD/colonoscopy >> ok for outpatient iron deficient >> venofer abx monitor H&H, transfuse prn H2 fu labs Subjective Gastrointestinal/Abdominal: Reports: abdomen distended Objective Last 24 Hour Vital Signs Date Time Temp Pulse Resp B/P Pulse Ox O2 Delivery O2 Flow Rate FiO2 02/06/17 13:23 92 16 35 02/06/17 12:00 99.0 113 22 124/76 97 Mechanical Ventilator 35 02/06/17 12:00 10.0 35 02/06/17 11:15 99.0 02/06/17 10:31 91 16 35 02/06/17 10:04 106 132/73 02/06/17 09:12 89 16 35 02/06/17 08:00 103 02/06/17 08:00 10.0 35 02/06/17 08:00 100.0 106 17 132/73 98 Mechanical Ventilator 35 02/06/17 06:31 86 16 35 02/06/17 05:28 88 17 35 02/06/17 04:00 99.6 93 16 119/67 94 Mechanical Ventilator 35 02/06/17 04:00 10.0 35 02/06/17 03:40 87 02/06/17 02:54 95 16 99 Mechanical Ventilator 02/06/17 02:47 93 16 35 02/06/17 02:47 93 16 97 Mechanical Ventilator 35 02/06/17 01:00 89 17 35 02/06/17 00:00 10.0 35 02/06/17 00:00 98.4 83 16 114/68 94 Mechanical Ventilator 35 02/05/17 23:44 84 02/05/17 23:07 91 16 99 Mechanical Ventilator 02/05/17 22:59 89 16 35 02/05/17 22:59 89 16 98 Mechanical Ventilator 35 02/05/17 21:14 94 16 35 02/05/17 20:33 88 127/70 02/05/17 20:31 98.6 88 16 127/70 95 Mechanical Ventilator 35 02/05/17 20:00 10.0 35 02/05/17 20:00 98.6 88 16 127/70 95 Mechanical Ventilator 35 02/05/17 19:15 94 02/05/17 18:50 94 16 98 Mechanical Ventilator 02/05/17 18:42 93 16 96 Mechanical Ventilator 35 02/05/17 18:42 93 16 35 02/05/17 16:33 90 16 35 02/05/17 16:00 10.0 35 02/05/17 16:00 98.4 78 16 123/73 94 Mechanical Ventilator 35 02/05/17 16:00 98.4 78 16 123/73 94 Mechanical Ventilator 35 02/05/17 16:00 79 02/05/17 14:31 97 16 35 Intake and Output 02/05/17 02/06/17 19:00 07:00 Intake Total 1432.5 ml 810 ml Output Total 350 ml 1350 ml Balance 1082.5 ml -540 ml Intake Free Water 250 ml IV Total 792.5 ml 450 ml Tube Feeding 390 ml 360 ml Output Urine Total 350 ml 1350 ml Height (Feet): 6 Weight (Pounds): 205 General Appearance: no apparent distress, alert Cardiovascular: normal rate, tachycardia Respiratory/Chest: other Abdominal Exam: normal bowel sounds, non tender, distended Luciana Kohler NJean Feb 06, 2017 14:14
[2017-02-06 16:51] VITALS: BP 104/69
[2017-02-06 20:45] VITALS: BP 151/86
[2017-02-06] MEDS ORDERED: Famotidine 20 MG/ 2ML VIAL IVP SCH (21:00)
[2017-02-06] MEDS: Tamsulosin 0.4mg cap GT SCH (21:00)
[2017-02-06] MEDS: Iron Sucrose 100 MG in NS 55 ML IVPB SCH (21:03)
[2017-02-07] VITALS: BP 101/66
[2017-02-07] MEDS: Piperacillin/Tazobactam 3.375 GM in D5W 110 ML IVPB SCH ×3 (01:15→18:20)
[2017-02-07 04:00] VITALS: BP 111/62
[2017-02-07] MEDS: LORazepam Inj 2mg/ml 1ml IV PRN ×2 (04:08→21:53)
[2017-02-07 05:00] LABS: BASOPHILS % (AUTO) 3.1 % (0.0-2.0); EOSINOPHILS % (AUTO) 3.9 % (0.0-3.0); LYMPHOCYTES % (AUTO) 12.3 % (20.0-45.0); MEAN CORPUSCULAR HEMOGLOBIN 25.2 PG (27.0-31.0); MEAN CORPUSCULAR HGB CONC 29.7 G/DL (32.0-36.0); MEAN CORPUSCULAR VOLUME 85 FL (80-99); MEAN PLATELET VOLUME 6.8 FL (6.5-10.1); MONOCYTES % (AUTO) 14.1 % (1.0-10.0); NEUTROPHILS % (AUTO) 66.7 % (45.0-75.0); PLATELET COUNT 233 K/UL (150-450); RED BLOOD COUNT 3.18 M/UL (4.70-6.10); RED CELL DISTRIBUTION WIDTH 15.4 % (11.6-14.8); WHITE BLOOD COUNT 12.4 K/UL (4.8-10.8)
[2017-02-07 05:23] LABS: ALANINE AMINOTRANSFERASE 13 U/L (3-41); ALBUMIN/GLOBULIN RATIO 0.7 (1.0-2.7); ANION GAP 12 (5-15); ASPARTATE AMINO TRANSFERASE 18 U/L (5-40); CALCIUM 8.9 mg/dL (8.6-10.2); CARBON DIOXIDE 30 mEQ/L (20-30); CHLORIDE 94 mEQ/L (98-107); CREATININE 1.1 mg/dL (0.7-1.2); CRP QUANT 13.8 mg/dL (< 0.5); GLOMERULAR FILTRATION RATE > 60 mL/min (>60); HEMOLYSIS 0; MAGNESIUM 1.8 mg/dL (1.7-2.5); SODIUM 136 mEQ/L (135-145); TOTAL PROTEIN 5.7 g/dL (6.6-8.7); URIC ACID 2.3 mg/dL (3.0-7.5)
[2017-02-07 08:00] VITALS: BP 109/73
[2017-02-07] MEDS: Metoprolol 25mg tab GT SCH ×2 (08:11→21:00)
[2017-02-07] MEDS: Levofloxacin 500mg tab ORAL SCH (08:13)
[2017-02-07] MEDS: Heparin 5000 units/ml inj SUBQ SCH ×2 (09:17→21:54)
[2017-02-07] MEDS ORDERED: Tubing IV Secondary IV ONE (10:25)
[2017-02-07] MEDS: DuoNeb 0.5-3(2.5)mg/3ml neb INH PRN (10:38)
--- NOTE | 2017-02-07 11:11 | Pulmonology Progress Note ---
Assessment/Plan Problems: (1) Acute and chronic respiratory failure (evaow-iz-gdwafiy) (2) Sepsis (3) CHENTE (acute kidney injury) (4) Diabetes mellitus (5) Hypertension Subjective ROS Limited/Unobtainable: No Constitutional: Reports: no symptoms Allergies: Coded Allergies: No Known Allergies (Unverified , 08/09/13) Objective Last 24 Hour Vital Signs Date Time Temp Pulse Resp B/P Pulse Ox O2 Delivery O2 Flow Rate FiO2 02/07/17 10:38 92 16 35 02/07/17 08:56 85 16 35 02/07/17 08:11 87 111/62 02/07/17 08:00 99.1 80 16 109/73 96 Mechanical Ventilator 35 02/07/17 08:00 87 02/07/17 08:00 10.0 35 02/07/17 06:53 78 16 35 02/07/17 04:56 75 16 35 02/07/17 04:00 98.2 81 16 111/62 95 35 02/07/17 04:00 10.0 35 02/07/17 04:00 78 02/07/17 02:54 80 16 35 02/07/17 01:12 81 16 35 02/07/17 00:00 79 02/07/17 00:00 10.0 35 02/07/17 00:00 98.8 78 16 101/66 98 Mechanical Ventilator 35 02/06/17 22:46 86 16 35 02/06/17 21:00 94 151/86 02/06/17 20:45 90.0 94 16 151/86 96 Mechanical Ventilator 35 02/06/17 20:43 97 16 35 02/06/17 20:00 10.0 35 02/06/17 20:00 97 02/06/17 18:48 97 16 35 02/06/17 16:59 94 16 35 02/06/17 16:51 98.0 90 16 104/69 96 Mechanical Ventilator 35 02/06/17 16:00 10.0 35 02/06/17 16:00 88 02/06/17 15:01 93 16 35 02/06/17 13:23 92 16 35 02/06/17 12:00 99.0 113 22 124/76 97 Mechanical Ventilator 35 02/06/17 12:00 10.0 35 02/06/17 12:00 93 02/06/17 11:15 99.0 Intake and Output 02/06/17 02/07/17 19:00 07:00 Intake Total 522.5 ml 667.5 ml Output Total 750 ml 400 ml Balance -227.5 ml 267.5 ml IV Total 192.5 ml 667.5 ml Tube Feeding 330 ml Output Urine Total 750 ml 400 ml General Appearance: WD/WN HEENT: normocephalic, atraumatic, status post trach Respiratory/Chest: chest wall non-tender, lungs clear Genitourinary: normal external genitalia Extremities: no cyanosis Neurologic/Psychiatric: country singer II-XII grossly normal, oriented x 3 Lymphatic: no neck adenopathy Laboratory Tests 02/07/17 03:30: White Blood Count 12.4H, Red Blood Count 3.18L, Hemoglobin 8.0L, Hematocrit 27.0L, Mean Corpuscular Volume 85, Mean Corpuscular Hemoglobin 25.2L, Mean Corpuscular Hemoglobin Concent 29.7L, Red Cell Distribution Width 15.4H, Platelet Count 233, Mean Platelet Volume 6.8, Neutrophils (%) (Auto) 66.7, Lymphocytes (%) (Auto) 12.3L, Monocytes (%) (Auto) 14.1H, Eosinophils (%) (Auto ) 3.9H, Basophils (%) (Auto) 3.1H, Sodium Level 136, Potassium Level 4.0, Chloride Level 94L, Carbon Dioxide Level 30, Anion Gap 12, Blood Urea Nitrogen 6L, Creatinine 1.1, Estimat Glomerular Filtration Rate > 60, Glucose Level 97, Uric Acid 2.3L, Calcium Level 8.9, Phosphorus Level 3.0, Magnesium Level 1.8, Total Bilirubin 0.3, Aspartate Amino Transf (AST/SGOT) 18, Alanine Aminotransferase (ALT/SGPT) 13, Alkaline Phosphatase 71, C-Reactive Protein, Quantitative 13.8H, Pro-B-Type Natriuretic Peptide 197H, Total Protein 5.7L, Albumin 2.4L, Globulin 3.3, Albumin/Globulin Ratio 0.7L Current Medications Medications (Trade) Dose Ordered Sig/Beto Route PRN Reason Start Time Stop Time Status Last Admin Dose Admin Acetaminophen (Tylenol) 650 mg Q4H PRN ORAL FEVER 02/01/17 10:45 03/03/17 10:44 02/06/17 10:04 Albuterol/ Ipratropium (DuoNeb 0.5-3(2.5)mg/3ml) 3 ml EVERY 4 HOURS PRN INH Shortness of Breath 02/07/17 09:00 02/12/17 08:59 02/07/17 10:38 Dextrose STAT PRN IV Hypoglycemia 02/01/17 10:45 03/03/17 10:44 Heparin Sodium (Porcine) (Heparin 5000 units/ml) 5,000 units EVERY 12 HOURS SUBQ 02/01/17 21:00 03/03/17 20:59 02/07/17 09:17 Iron Sucrose/ Sodium Chloride (Venofer/Sodium Chloride) 60 ml @ 240 mls/hr BEDTIME IVPB 02/06/17 21:00 02/08/17 21:14 02/06/17 21:03 Levofloxacin 500 mg 500 mg DAILY ORAL 02/07/17 09:00 02/10/17 08:59 Lorazepam (Ativan 2mg/ml 1ml) 2 mg Q2H PRN IV For Anxiety 02/01/17 10:45 02/08/17 10:44 02/07/17 04:08 Metoprolol Tartrate (Lopressor) 25 mg EVERY 12 HOURS GT 02/03/17 16:07 03/03/17 20:59 02/06/17 10:04 Morphine Sulfate (Morphine Sulfate) 4 mg Q4H PRN IVP Severe Pain (Pain Scale 7-10) 02/01/17 10:45 02/08/17 10:44 02/06/17 21:05 Ondansetron HCl (Zofran) 4 mg Q6H PRN IVP Nausea & Vomiting 02/01/17 10:45 03/03/17 10:44 Piperacillin Sod/ Tazobactam Sod/ Dextrose (Zosyn/D5W) 110 ml @ 27.5 mls/hr Q8H IVPB 02/07/17 09:00 02/14/17 08:59 02/07/17 09:16 Polyethylene Glycol 17 gm 17 gm DAILYPRN PRN GT Constipation 02/03/17 16:07 03/03/17 10:44 Ranitidine HCl (Zantac) 150 mg Q12HR GT 02/06/17 21:00 03/08/17 20:59 Sodium Chloride (Sodium Chloride 1000ml bag) 1,000 ml @ 50 mls/hr Q20H IV 02/02/17 16:15 03/04/17 16:14 02/07/17 09:25 Tamsulosin HCl (Flomax) 0.4 mg BEDTIME GT 02/03/17 16:07 03/03/17 20:59 02/05/17 20:32 Critical Care - Asmt/Plan Problems: (1) Acute and chronic respiratory failure (jjgwi-zm-ucfybyo) (2) Tracheostomy care (3) Sepsis (4) Pneumonia (5) COPD exacerbation Respiratory: monitor respiratory rate, adjust FIO2 Cardiac: continue to monitor HR/BP Renal: F/U I&O, keep IV fluid, check electrolytes Infectious Disease: check cultures, continue antibiotics Gastrointestinal: other - for vidwo swallo Endocrine: monitor blood sugar, continue sliding scale insulin Hematologic: monitor H/H, transfuse if hgb<8.5 Neurologic: keep patient comfortable Affect: PRN ativan Prophylaxis: Protonix Notes Reviewed: ID, GI Discussed with: nurses, consultants, case preparer and liner VALERIE WASHINGTON Feb 07, 2017 11:11
--- NOTE | 2017-02-07 11:21 | Infectious Diseases Prog Note ---
Assessment/Plan Assessment/Plan A: The patient is a 66-year-old male with Sepsis improving Pneumonia, Asp improving Scx:PSA leukocytosis, mild Chronic respiratory failure. Hypertension. Asthma. COPD. Diabetes. SP trach a PLAN: continue the patient on Zosyn d# / and DC Levaquin day # 7 / ( 02/03 SP Teflaro d/3 3 ) Monitor CBC. Monitor BMP. Monitor chest x-ray. Subjective Allergies: Coded Allergies: No Known Allergies (Unverified , 08/09/13) Subjective on vent Objective Vital Signs Last 24 Hour Vital Signs Date Time Temp Pulse Resp B/P Pulse Ox O2 Delivery O2 Flow Rate FiO2 02/07/17 10:38 92 16 35 02/07/17 08:56 85 16 35 02/07/17 08:11 87 111/62 02/07/17 08:00 99.1 80 16 109/73 96 Mechanical Ventilator 35 02/07/17 08:00 87 02/07/17 08:00 10.0 35 02/07/17 06:53 78 16 35 02/07/17 04:56 75 16 35 02/07/17 04:00 98.2 81 16 111/62 95 35 02/07/17 04:00 10.0 35 02/07/17 04:00 78 02/07/17 02:54 80 16 35 02/07/17 01:12 81 16 35 02/07/17 00:00 79 02/07/17 00:00 10.0 35 02/07/17 00:00 98.8 78 16 101/66 98 Mechanical Ventilator 35 02/06/17 22:46 86 16 35 02/06/17 21:00 94 151/86 02/06/17 20:45 90.0 94 16 151/86 96 Mechanical Ventilator 35 02/06/17 20:43 97 16 35 02/06/17 20:00 10.0 35 02/06/17 20:00 97 02/06/17 18:48 97 16 35 02/06/17 16:59 94 16 35 02/06/17 16:51 98.0 90 16 104/69 96 Mechanical Ventilator 35 02/06/17 16:00 10.0 35 02/06/17 16:00 88 02/06/17 15:01 93 16 35 02/06/17 13:23 92 16 35 02/06/17 12:00 99.0 113 22 124/76 97 Mechanical Ventilator 35 02/06/17 12:00 10.0 35 02/06/17 12:00 93 Height (Feet): 6 Weight (Pounds): 205 HEENT: anicteric Respiratory/Chest: no respiratory distress Cardiovascular: regular rhythm Abdomen: non distended Laboratory Tests Test 02/07/17 03:30 White Blood Count 12.4 K/UL (4.8-10.8) H Red Blood Count 3.18 M/UL (4.70-6.10) L Hemoglobin 8.0 G/DL (14.2-18.0) L Hematocrit 27.0 % (42.0-52.0) L Mean Corpuscular Volume 85 FL (80-99) Mean Corpuscular Hemoglobin 25.2 PG (27.0-31.0) L Mean Corpuscular Hemoglobin Concent 29.7 G/DL (32.0-36.0) L Red Cell Distribution Width 15.4 % (11.6-14.8) H Platelet Count 233 K/UL (150-450) Mean Platelet Volume 6.8 FL (6.5-10.1) Neutrophils (%) (Auto) 66.7 % (45.0-75.0) Lymphocytes (%) (Auto) 12.3 % (20.0-45.0) L Monocytes (%) (Auto) 14.1 % (1.0-10.0) H Eosinophils (%) (Auto) 3.9 % (0.0-3.0) H Basophils (%) (Auto) 3.1 % (0.0-2.0) H Sodium Level 136 mEQ/L (135-145) Potassium Level 4.0 mEQ/L (3.4-4.9) Chloride Level 94 mEQ/L (98-107) L Carbon Dioxide Level 30 mEQ/L (20-30) Anion Gap 12 (5-15) Blood Urea Nitrogen 6 mg/dL (7-23) L Creatinine 1.1 mg/dL (0.7-1.2) Estimat Glomerular Filtration Rate > 60 mL/min (>60) Glucose Level 97 mg/dL (74-106) Uric Acid 2.3 mg/dL (3.0-7.5) L Calcium Level 8.9 mg/dL (8.6-10.2) Phosphorus Level 3.0 mg/dL (2.5-4.8) Magnesium Level 1.8 mg/dL (1.7-2.5) Total Bilirubin 0.3 mg/dL (0.0-1.2) Aspartate Amino Transf (AST/SGOT) 18 U/L (5-40) Alanine Aminotransferase (ALT/SGPT) 13 U/L (3-41) Alkaline Phosphatase 71 U/L (40-129) C-Reactive Protein, Quantitative 13.8 mg/dL (< 0.5) H Pro-B-Type Natriuretic Peptide 197 pg/mL (0-125) H Total Protein 5.7 g/dL (6.6-8.7) L Albumin 2.4 g/dL (3.5-5.2) L Globulin 3.3 g/dL Albumin/Globulin Ratio 0.7 (1.0-2.7) L Current Medications Medications (Trade) Dose Ordered Sig/Beto Route PRN Reason Start Time Stop Time Status Last Admin Dose Admin Acetaminophen (Tylenol) 650 mg Q4H PRN ORAL FEVER 02/01/17 10:45 03/03/17 10:44 02/06/17 10:04 Albuterol/ Ipratropium (DuoNeb 0.5-3(2.5)mg/3ml) 3 ml EVERY 4 HOURS PRN INH Shortness of Breath 02/07/17 09:00 02/12/17 08:59 02/07/17 10:38 Dextrose STAT PRN IV Hypoglycemia 02/01/17 10:45 03/03/17 10:44 Heparin Sodium (Porcine) (Heparin 5000 units/ml) 5,000 units EVERY 12 HOURS SUBQ 02/01/17 21:00 03/03/17 20:59 02/07/17 09:17 Iron Sucrose/ Sodium Chloride (Venofer/Sodium Chloride) 60 ml @ 240 mls/hr BEDTIME IVPB 02/06/17 21:00 02/08/17 21:14 02/06/17 21:03 Levofloxacin 500 mg 500 mg DAILY ORAL 02/07/17 09:00 02/10/17 08:59 Lorazepam (Ativan 2mg/ml 1ml) 2 mg Q2H PRN IV For Anxiety 02/01/17 10:45 02/08/17 10:44 02/07/17 04:08 Metoprolol Tartrate (Lopressor) 25 mg EVERY 12 HOURS GT 02/03/17 16:07 03/03/17 20:59 02/06/17 10:04 Morphine Sulfate (Morphine Sulfate) 4 mg Q4H PRN IVP Severe Pain (Pain Scale 7-10) 02/01/17 10:45 02/08/17 10:44 02/06/17 21:05 Ondansetron HCl (Zofran) 4 mg Q6H PRN IVP Nausea & Vomiting 02/01/17 10:45 03/03/17 10:44 Piperacillin Sod/ Tazobactam Sod/ Dextrose (Zosyn/D5W) 110 ml @ 27.5 mls/hr Q8H IVPB 02/07/17 09:00 02/14/17 08:59 02/07/17 09:16 Polyethylene Glycol 17 gm 17 gm DAILYPRN PRN GT Constipation 02/03/17 16:07 03/03/17 10:44 Ranitidine HCl (Zantac) 150 mg Q12HR GT 02/06/17 21:00 03/08/17 20:59 Sodium Chloride (Sodium Chloride 1000ml bag) 1,000 ml @ 50 mls/hr Q20H IV 02/02/17 16:15 03/04/17 16:14 02/07/17 09:25 Tamsulosin HCl (Flomax) 0.4 mg BEDTIME GT 02/03/17 16:07 03/03/17 20:59 02/05/17 20:32 SYLVESTER RODGERS M.D. Feb 07, 2017 11:21
[2017-02-07 12:00] VITALS: BP 126/74
--- NOTE | 2017-02-07 13:16 | General Progress Note ---
Assessment/Plan Status: stable - from renal stand Assessment/Plan status: Acute renal failure- resolved Sepsis- resolving leukocytosis DM Respiratory failure RUQ pain Anemia Plan: no labs today Hydrate- monitor renal parameters- Keep BP and BS in check urine studies- Avoid nephrotoxics Subjective ROS Limited/Unobtainable: No Constitutional: Reports: malaise Allergies: Coded Allergies: No Known Allergies (Unverified , 08/09/13) Objective Last 24 Hour Vital Signs Date Time Temp Pulse Resp B/P Pulse Ox O2 Delivery O2 Flow Rate FiO2 02/07/17 12:05 10.0 35 02/07/17 12:05 78 02/07/17 12:00 99.0 88 16 126/74 97 Mechanical Ventilator 35 02/07/17 10:38 92 16 35 02/07/17 08:56 85 16 35 02/07/17 08:11 87 111/62 02/07/17 08:00 99.1 80 16 109/73 96 Mechanical Ventilator 35 02/07/17 08:00 87 02/07/17 08:00 10.0 35 02/07/17 06:53 78 16 35 02/07/17 04:56 75 16 35 02/07/17 04:00 98.2 81 16 111/62 95 35 02/07/17 04:00 10.0 35 02/07/17 04:00 78 02/07/17 02:54 80 16 35 02/07/17 01:12 81 16 35 02/07/17 00:00 79 02/07/17 00:00 10.0 35 02/07/17 00:00 98.8 78 16 101/66 98 Mechanical Ventilator 35 02/06/17 22:46 86 16 35 02/06/17 21:00 94 151/86 02/06/17 20:45 90.0 94 16 151/86 96 Mechanical Ventilator 35 02/06/17 20:43 97 16 35 02/06/17 20:00 10.0 35 02/06/17 20:00 97 02/06/17 18:48 97 16 35 02/06/17 16:59 94 16 35 02/06/17 16:51 98.0 90 16 104/69 96 Mechanical Ventilator 35 02/06/17 16:00 10.0 35 02/06/17 16:00 88 02/06/17 15:01 93 16 35 02/06/17 13:23 92 16 35 Intake and Output 02/06/17 02/07/17 19:00 07:00 Intake Total 522.5 ml 667.5 ml Output Total 750 ml 400 ml Balance -227.5 ml 267.5 ml IV Total 192.5 ml 667.5 ml Tube Feeding 330 ml Output Urine Total 750 ml 400 ml Laboratory Tests 02/07/17 03:30: White Blood Count 12.4H, Red Blood Count 3.18L, Hemoglobin 8.0L, Hematocrit 27.0L, Mean Corpuscular Volume 85, Mean Corpuscular Hemoglobin 25.2L, Mean Corpuscular Hemoglobin Concent 29.7L, Red Cell Distribution Width 15.4H, Platelet Count 233, Mean Platelet Volume 6.8, Neutrophils (%) (Auto) 66.7, Lymphocytes (%) (Auto) 12.3L, Monocytes (%) (Auto) 14.1H, Eosinophils (%) (Auto ) 3.9H, Basophils (%) (Auto) 3.1H, Sodium Level 136, Potassium Level 4.0, Chloride Level 94L, Carbon Dioxide Level 30, Anion Gap 12, Blood Urea Nitrogen 6L, Creatinine 1.1, Estimat Glomerular Filtration Rate > 60, Glucose Level 97, Uric Acid 2.3L, Calcium Level 8.9, Phosphorus Level 3.0, Magnesium Level 1.8, Total Bilirubin 0.3, Aspartate Amino Transf (AST/SGOT) 18, Alanine Aminotransferase (ALT/SGPT) 13, Alkaline Phosphatase 71, C-Reactive Protein, Quantitative 13.8H, Pro-B-Type Natriuretic Peptide 197H, Total Protein 5.7L, Albumin 2.4L, Globulin 3.3, Albumin/Globulin Ratio 0.7L Height (Feet): 6 Weight (Pounds): 205 General Appearance: no apparent distress Objective PE not changed SAMANTHA ALLRED Feb 07, 2017 13:16
--- NOTE | 2017-02-07 13:22 | GI Progress Note ---
Assessment/Plan Problems: (1) Iron (Fe) deficiency anemia ICD Codes: D50.9 - Iron deficiency anemia, unspecified SNOMED: 86105703 (2) RLL pneumonia ICD Codes: J18.1 - Lobar pneumonia, unspecified organism SNOMED: 543017139 (3) Right upper quadrant abdominal pain ICD Codes: R10.11 - Right upper quadrant pain SNOMED: 401711205 (4) Diabetes mellitus ICD Codes: E11.9 - Type 2 diabetes mellitus without complications SNOMED: 17503998 (5) Sepsis ICD Codes: A41.9 - Sepsis, unspecified organism SNOMED: 65274501 (6) Constipation ICD Codes: K59.00 - Constipation, unspecified SNOMED: 31810060 Status: unchanged Status Narrative Discussed with Dr. Hsu. Assessment/Plan Assessment - RUQ abd TTP with negative CT/ultrasound most likely from R sided pneumonia. - pyelo - diverticulosis - mild anemia - Azotemia - Resp failure / Trach Recommendations NGT, patient self removed >> unless improves, will need PEG ST evaluation today refused EGD/colonoscopy >> ok for outpatient iron deficient >> venofer abx monitor H&H, transfuse prn H2 dulcolax x 1 fu labs Subjective Gastrointestinal/Abdominal: Reports: no symptoms Objective Last 24 Hour Vital Signs Date Time Temp Pulse Resp B/P Pulse Ox O2 Delivery O2 Flow Rate FiO2 02/07/17 12:05 10.0 35 02/07/17 12:05 78 02/07/17 12:00 99.0 88 16 126/74 97 Mechanical Ventilator 35 02/07/17 10:38 92 16 35 02/07/17 08:56 85 16 35 02/07/17 08:11 87 111/62 02/07/17 08:00 99.1 80 16 109/73 96 Mechanical Ventilator 35 02/07/17 08:00 87 02/07/17 08:00 10.0 35 02/07/17 06:53 78 16 35 02/07/17 04:56 75 16 35 02/07/17 04:00 98.2 81 16 111/62 95 35 02/07/17 04:00 10.0 35 02/07/17 04:00 78 02/07/17 02:54 80 16 35 02/07/17 01:12 81 16 35 02/07/17 00:00 79 02/07/17 00:00 10.0 35 02/07/17 00:00 98.8 78 16 101/66 98 Mechanical Ventilator 35 02/06/17 22:46 86 16 35 02/06/17 21:00 94 151/86 02/06/17 20:45 90.0 94 16 151/86 96 Mechanical Ventilator 35 02/06/17 20:43 97 16 35 02/06/17 20:00 10.0 35 02/06/17 20:00 97 02/06/17 18:48 97 16 35 02/06/17 16:59 94 16 35 02/06/17 16:51 98.0 90 16 104/69 96 Mechanical Ventilator 35 02/06/17 16:00 10.0 35 02/06/17 16:00 88 02/06/17 15:01 93 16 35 02/06/17 13:23 92 16 35 Intake and Output 02/06/17 02/07/17 19:00 07:00 Intake Total 522.5 ml 667.5 ml Output Total 750 ml 400 ml Balance -227.5 ml 267.5 ml IV Total 192.5 ml 667.5 ml Tube Feeding 330 ml Output Urine Total 750 ml 400 ml Laboratory Tests Test 02/07/17 03:30 White Blood Count 12.4 K/UL (4.8-10.8) H Red Blood Count 3.18 M/UL (4.70-6.10) L Hemoglobin 8.0 G/DL (14.2-18.0) L Hematocrit 27.0 % (42.0-52.0) L Mean Corpuscular Volume 85 FL (80-99) Mean Corpuscular Hemoglobin 25.2 PG (27.0-31.0) L Mean Corpuscular Hemoglobin Concent 29.7 G/DL (32.0-36.0) L Red Cell Distribution Width 15.4 % (11.6-14.8) H Platelet Count 233 K/UL (150-450) Mean Platelet Volume 6.8 FL (6.5-10.1) Neutrophils (%) (Auto) 66.7 % (45.0-75.0) Lymphocytes (%) (Auto) 12.3 % (20.0-45.0) L Monocytes (%) (Auto) 14.1 % (1.0-10.0) H Eosinophils (%) (Auto) 3.9 % (0.0-3.0) H Basophils (%) (Auto) 3.1 % (0.0-2.0) H Sodium Level 136 mEQ/L (135-145) Potassium Level 4.0 mEQ/L (3.4-4.9) Chloride Level 94 mEQ/L (98-107) L Carbon Dioxide Level 30 mEQ/L (20-30) Anion Gap 12 (5-15) Blood Urea Nitrogen 6 mg/dL (7-23) L Creatinine 1.1 mg/dL (0.7-1.2) Estimat Glomerular Filtration Rate > 60 mL/min (>60) Glucose Level 97 mg/dL (74-106) Uric Acid 2.3 mg/dL (3.0-7.5) L Calcium Level 8.9 mg/dL (8.6-10.2) Phosphorus Level 3.0 mg/dL (2.5-4.8) Magnesium Level 1.8 mg/dL (1.7-2.5) Total Bilirubin 0.3 mg/dL (0.0-1.2) Aspartate Amino Transf (AST/SGOT) 18 U/L (5-40) Alanine Aminotransferase (ALT/SGPT) 13 U/L (3-41) Alkaline Phosphatase 71 U/L (40-129) C-Reactive Protein, Quantitative 13.8 mg/dL (< 0.5) H Pro-B-Type Natriuretic Peptide 197 pg/mL (0-125) H Total Protein 5.7 g/dL (6.6-8.7) L Albumin 2.4 g/dL (3.5-5.2) L Globulin 3.3 g/dL Albumin/Globulin Ratio 0.7 (1.0-2.7) L Height (Feet): 6 Weight (Pounds): 205 General Appearance: no apparent distress, alert Cardiovascular: normal rate Respiratory/Chest: other - mech vent Abdominal Exam: distended Luciana Kohler N.P. Feb 07, 2017 13:22
[2017-02-07] MEDS: Morphine Sulfate 4mg/ml Inj IVP PRN (14:27)
[2017-02-07 16:00] VITALS: BP 124/60
[2017-02-07 20:00] VITALS: BP 106/67
[2017-02-07] MEDS: Tamsulosin 0.4mg cap GT SCH (21:00)
[2017-02-07] MEDS: Iron Sucrose 100 MG in NS 55 ML IVPB SCH (21:53)
[2017-02-08] VITALS (7 sets, daily range): BP systolic 116–129; BP diastolic 67–83
[2017-02-08] MEDS: Piperacillin/Tazobactam 3.375 GM in D5W 110 ML IVPB SCH ×3 (01:08→16:26)
[2017-02-08] MEDS: Morphine Sulfate 4mg/ml Inj IVP PRN ×4 (01:49→20:38)
[2017-02-08] MEDS: LORazepam Inj 2mg/ml 1ml IV PRN (03:45)
[2017-02-08 06:00] LABS: ALANINE AMINOTRANSFERASE 15 U/L (3-41); ALBUMIN/GLOBULIN RATIO 0.6 (1.0-2.7); ANION GAP 19 (5-15); ASPARTATE AMINO TRANSFERASE 26 U/L (5-40); CALCIUM 9.1 mg/dL (8.6-10.2); CARBON DIOXIDE 25 mEQ/L (20-30); CHLORIDE 95 mEQ/L (98-107); CREATININE 1.1 mg/dL (0.7-1.2); GLOMERULAR FILTRATION RATE > 60 mL/min (>60); HEMOLYSIS 63; MAGNESIUM 1.8 mg/dL (1.7-2.5); PHOSPHORUS 3.4 mg/dL (2.5-4.8); SODIUM 139 mEQ/L (135-145); TOTAL PROTEIN 6.6 g/dL (6.6-8.7)
[2017-02-08] MEDS: DuoNeb 0.5-3(2.5)mg/3ml neb INH PRN ×2 (07:43→23:05)
[2017-02-08] MEDS: Levofloxacin 500mg tab ORAL SCH (08:34)
[2017-02-08] MEDS: Metoprolol 25mg tab GT SCH ×2 (08:35→21:00)
[2017-02-08] MEDS: Heparin 5000 units/ml inj SUBQ SCH ×2 (08:38→20:32)
[2017-02-08 09:01] LABS: BASOPHILS % (AUTO) 2.7 % (0.0-2.0); EOSINOPHILS % (AUTO) 3.7 % (0.0-3.0); LYMPHOCYTES % (AUTO) 15.9 % (20.0-45.0); MEAN CORPUSCULAR HEMOGLOBIN 26.4 PG (27.0-31.0); MEAN CORPUSCULAR HGB CONC 30.4 G/DL (32.0-36.0); MEAN CORPUSCULAR VOLUME 87 FL (80-99); MONOCYTES % (AUTO) 15.7 % (1.0-10.0); PLATELET COUNT 290 K/UL (150-450); RED BLOOD COUNT 3.67 M/UL (4.70-6.10); RED CELL DISTRIBUTION WIDTH 15.6 % (11.6-14.8); WHITE BLOOD COUNT 14.3 K/UL (4.8-10.8)
[2017-02-08] MEDS ORDERED: Tubing IV Secondary IV ONE (09:51)
[2017-02-08] MEDS ORDERED: NS 275ml ONE (09:51)
--- NOTE | 2017-02-08 10:23 | Pulmonology Progress Note ---
Assessment/Plan Problems: (1) Acute and chronic respiratory failure (calbg-xd-htcyvyf) (2) Sepsis (3) CHENTE (acute kidney injury) (4) Diabetes mellitus (5) Hypertension Respiratory: monitor respiratory rate, adjust FIO2 Cardiac: continue to monitor HR/BP Renal: F/U I&O, keep IV fluid Infectious Disease: check cultures, continue antibiotics Gastrointestinal: other - GI evaluation for feeding tube Endocrine: monitor blood sugar, continue sliding scale insulin Hematologic: monitor H/H, transfuse if hgb<8.5 Neurologic: PRN Ativan, keep patient comfortable Prophylaxis: Protonix, Heparin Disposition: keep in ICU Notes Reviewed: ID Discussed with: nurses, consultants, welfare case worker Subjective ROS Limited/Unobtainable: Yes Constitutional: Reports: no symptoms HEENT: Repors: no symptoms Allergies: Coded Allergies: No Known Allergies (Unverified , 08/09/13) Objective Last 24 Hour Vital Signs Date Time Temp Pulse Resp B/P Pulse Ox O2 Delivery O2 Flow Rate FiO2 02/08/17 09:18 97 16 35 02/08/17 08:30 35 02/08/17 08:29 114 16 35 02/08/17 08:00 98.8 100 15 128/78 99 Mechanical Ventilator 35 02/08/17 08:00 96 02/08/17 08:00 35 02/08/17 07:46 105 16 100 Mechanical Ventilator 02/08/17 07:30 99 16 99 Mechanical Ventilator 35 02/08/17 07:29 99 16 35 02/08/17 04:41 114 16 35 02/08/17 04:00 10.0 35 02/08/17 04:00 99.1 119 21 129/83 97 Mechanical Ventilator 10.0 35 02/08/17 04:00 124 02/08/17 02:59 110 21 35 02/08/17 00:49 97 16 35 02/08/17 00:00 98.4 95 16 122/75 97 Mechanical Ventilator 10.0 35 02/08/17 00:00 94 02/08/17 00:00 10.0 35 02/07/17 22:34 100 16 35 02/07/17 21:14 83 16 35 02/07/17 21:00 83 106/67 02/07/17 20:00 99.2 98 17 106/67 97 Mechanical Ventilator 10.0 35 02/07/17 20:00 103 4/18/17 20:00 10.0 35 02/07/17 18:52 103 17 35 02/07/17 16:50 92 16 35 02/07/17 16:04 10.0 35 02/07/17 16:04 82 02/07/17 16:00 99.4 94 16 124/60 97 Mechanical Ventilator 35 02/07/17 15:10 93 16 35 02/07/17 13:08 84 16 35 02/07/17 12:05 10.0 35 02/07/17 12:05 78 02/07/17 12:00 99.0 88 16 126/74 97 Mechanical Ventilator 35 02/07/17 10:38 92 16 35 Intake and Output 02/07/17 02/08/17 19:00 07:00 Intake Total 850 ml 1060.0 ml Output Total 500 ml 500 ml Balance 350 ml 560.0 ml IV Total 550 ml 1060.0 ml Blood Product 300 ml Output Urine Total 500 ml 500 ml # Bowel Movements 2 Objective General Appearance: WD/WN HEENT: normocephalic, atraumatic, status post trach Respiratory/Chest: chest wall non-tender, lungs clear Genitourinary: normal external genitalia Extremities: no cyanosis Neurologic/Psychiatric: zipper cutter II-XII grossly normal, oriented x 3 Laboratory Tests 02/08/17 03:20: Sodium Level 139, Potassium Level 5.0H, Chloride Level 95L, Carbon Dioxide Level 25, Anion Gap 19H, Blood Urea Nitrogen 5L, Creatinine 1.1, Estimat Glomerular Filtration Rate > 60, Glucose Level 71L, Calcium Level 9.1, Phosphorus Level 3.4, Magnesium Level 1.8, Total Bilirubin 0.5, Aspartate Amino Transf (AST/SGOT) 26, Alanine Aminotransferase (ALT/SGPT) 15, Alkaline Phosphatase 62, Total Protein 6.6, Albumin 2.5L, Globulin 4.1, Albumin/Globulin Ratio 0.6L 02/08/17 08:25: White Blood Count 14.3H, Red Blood Count 3.67L, Hemoglobin 9.7L, Hematocrit 31.9L, Mean Corpuscular Volume 87, Mean Corpuscular Hemoglobin 26.4L, Mean Corpuscular Hemoglobin Concent 30.4L, Red Cell Distribution Width 15.6H, Platelet Count 290, Mean Platelet Volume 6.0L, Neutrophils (%) (Auto) 62.0, Lymphocytes (%) (Auto) 15.9L, Monocytes (%) (Auto) 15.7H, Eosinophils (%) (Auto ) 3.7H, Basophils (%) (Auto) 2.7H Current Medications Medications (Trade) Dose Ordered Sig/Beto Route PRN Reason Start Time Stop Time Status Last Admin Dose Admin Acetaminophen (Tylenol) 650 mg Q4H PRN ORAL FEVER 02/01/17 10:45 03/03/17 10:44 02/06/17 10:04 Albuterol/ Ipratropium (DuoNeb 0.5-3(2.5)mg/3ml) 3 ml EVERY 4 HOURS PRN INH Shortness of Breath 02/07/17 09:00 02/12/17 08:59 02/08/17 07:43 Dextrose STAT PRN IV Hypoglycemia 02/01/17 10:45 03/03/17 10:44 Heparin Sodium (Porcine) (Heparin 5000 units/ml) 5,000 units EVERY 12 HOURS SUBQ 02/01/17 21:00 03/03/17 20:59 02/08/17 08:38 Iron Sucrose/ Sodium Chloride (Venofer/Sodium Chloride) 60 ml @ 240 mls/hr BEDTIME IVPB 02/06/17 21:00 02/08/17 21:14 02/07/17 21:53 Levofloxacin 500 mg 500 mg DAILY ORAL 02/07/17 09:00 02/10/17 08:59 Lorazepam (Ativan 2mg/ml 1ml) 2 mg Q2H PRN IV For Anxiety 02/01/17 10:45 02/08/17 10:44 02/08/17 03:45 Metoprolol Tartrate (Lopressor) 25 mg EVERY 12 HOURS GT 02/03/17 16:07 03/03/17 20:59 02/06/17 10:04 Morphine Sulfate (Morphine Sulfate) 4 mg Q4H PRN IVP Severe Pain (Pain Scale 7-10) 02/01/17 10:45 02/08/17 10:44 02/08/17 01:49 Ondansetron HCl (Zofran) 4 mg Q6H PRN IVP Nausea & Vomiting 02/01/17 10:45 03/03/17 10:44 Piperacillin Sod/ Tazobactam Sod/ Dextrose (Zosyn/D5W) 110 ml @ 27.5 mls/hr Q8H IVPB 02/07/17 09:00 02/14/17 08:59 02/08/17 08:37 Polyethylene Glycol 17 gm 17 gm DAILYPRN PRN GT Constipation 02/03/17 16:07 03/03/17 10:44 Ranitidine HCl (Zantac) 150 mg Q12HR GT 02/06/17 21:00 03/08/17 20:59 Sodium Chloride (Sodium Chloride 1000ml bag) 1,000 ml @ 50 mls/hr Q20H IV 02/02/17 16:15 03/04/17 16:14 02/08/17 06:09 Tamsulosin HCl (Flomax) 0.4 mg BEDTIME GT 02/03/17 16:07 03/03/17 20:59 02/05/17 20:32 VALERIE WASHINGTON Feb 08, 2017 10:23
--- NOTE | 2017-02-08 11:06 | GI Progress Note ---
Assessment/Plan Problems: (1) Iron (Fe) deficiency anemia ICD Codes: D50.9 - Iron deficiency anemia, unspecified SNOMED: 59321390 (2) RLL pneumonia ICD Codes: J18.1 - Lobar pneumonia, unspecified organism SNOMED: 727889290 (3) Right upper quadrant abdominal pain ICD Codes: R10.11 - Right upper quadrant pain SNOMED: 455675589 (4) Diabetes mellitus ICD Codes: E11.9 - Type 2 diabetes mellitus without complications SNOMED: 30513980 (5) Sepsis ICD Codes: A41.9 - Sepsis, unspecified organism SNOMED: 79659567 (6) Constipation ICD Codes: K59.00 - Constipation, unspecified SNOMED: 73183938 Status: unchanged Status Narrative Discussed with Dr. Hsu. Assessment/Plan Assessment - RUQ abd TTP with negative CT/ultrasound most likely from R sided pneumonia. - pyelo - diverticulosis - mild anemia - Azotemia - Resp failure / Trach Recommendations NGT, patient self removed >> unless improves, will need PEG ST evaluation >> failed weaning, unable to perform video swallow study refused EGD/colonoscopy >> ok for outpatient if agrees iron deficient >> venofer abx monitor H&H, transfuse prn H2 fu labs Subjective Gastrointestinal/Abdominal: Reports: difficulty swallowing Subjective limited, non verbal Objective Last 24 Hour Vital Signs Date Time Temp Pulse Resp B/P Pulse Ox O2 Delivery O2 Flow Rate FiO2 02/08/17 09:18 97 16 35 02/08/17 08:30 35 02/08/17 08:29 114 16 35 02/08/17 08:00 98.8 100 15 128/78 99 Mechanical Ventilator 35 02/08/17 08:00 96 02/08/17 08:00 35 02/08/17 07:46 105 16 100 Mechanical Ventilator 02/08/17 07:30 99 16 99 Mechanical Ventilator 35 02/08/17 07:29 99 16 35 02/08/17 04:41 114 16 35 02/08/17 04:00 10.0 35 02/08/17 04:00 99.1 119 21 129/83 97 Mechanical Ventilator 10.0 35 02/08/17 04:00 124 02/08/17 02:59 110 21 35 02/08/17 00:49 97 16 35 02/08/17 00:00 98.4 95 16 122/75 97 Mechanical Ventilator 10.0 35 02/08/17 00:00 94 02/08/17 00:00 10.0 35 02/07/17 22:34 100 16 35 02/07/17 21:14 83 16 35 02/07/17 21:00 83 106/67 02/07/17 20:00 99.2 98 17 106/67 97 Mechanical Ventilator 10.0 35 02/07/17 20:00 103 02/07/17 20:00 10.0 35 02/07/17 18:52 103 17 35 02/07/17 16:50 92 16 35 02/07/17 16:04 10.0 35 02/07/17 16:04 82 02/07/17 16:00 99.4 94 16 124/60 97 Mechanical Ventilator 35 02/07/17 15:10 93 16 35 02/07/17 13:08 84 16 35 02/07/17 12:05 10.0 35 02/07/17 12:05 78 02/07/17 12:00 99.0 88 16 126/74 97 Mechanical Ventilator 35 Intake and Output 02/07/17 02/08/17 19:00 07:00 Intake Total 850 ml 1060.0 ml Output Total 500 ml 500 ml Balance 350 ml 560.0 ml IV Total 550 ml 1060.0 ml Blood Product 300 ml Output Urine Total 500 ml 500 ml # Bowel Movements 2 Laboratory Tests Test 02/08/17 03:20 02/08/17 08:25 Sodium Level 139 mEQ/L (135-145) Potassium Level 5.0 mEQ/L (3.4-4.9) H Chloride Level 95 mEQ/L (98-107) L Carbon Dioxide Level 25 mEQ/L (20-30) Anion Gap 19 (5-15) H Blood Urea Nitrogen 5 mg/dL (7-23) L Creatinine 1.1 mg/dL (0.7-1.2) Estimat Glomerular Filtration Rate > 60 mL/min (>60) Glucose Level 71 mg/dL (74-106) L Calcium Level 9.1 mg/dL (8.6-10.2) Phosphorus Level 3.4 mg/dL (2.5-4.8) Magnesium Level 1.8 mg/dL (1.7-2.5) Total Bilirubin 0.5 mg/dL (0.0-1.2) Aspartate Amino Transf (AST/SGOT) 26 U/L (5-40) Alanine Aminotransferase (ALT/SGPT) 15 U/L (3-41) Alkaline Phosphatase 62 U/L (40-129) Total Protein 6.6 g/dL (6.6-8.7) Albumin 2.5 g/dL (3.5-5.2) L Globulin 4.1 g/dL Albumin/Globulin Ratio 0.6 (1.0-2.7) L White Blood Count 14.3 K/UL (4.8-10.8) H Red Blood Count 3.67 M/UL (4.70-6.10) L Hemoglobin 9.7 G/DL (14.2-18.0) L Hematocrit 31.9 % (42.0-52.0) L Mean Corpuscular Volume 87 FL (80-99) Mean Corpuscular Hemoglobin 26.4 PG (27.0-31.0) L Mean Corpuscular Hemoglobin Concent 30.4 G/DL (32.0-36.0) L Red Cell Distribution Width 15.6 % (11.6-14.8) H Platelet Count 290 K/UL (150-450) Mean Platelet Volume 6.0 FL (6.5-10.1) L Neutrophils (%) (Auto) 62.0 % (45.0-75.0) Lymphocytes (%) (Auto) 15.9 % (20.0-45.0) L Monocytes (%) (Auto) 15.7 % (1.0-10.0) H Eosinophils (%) (Auto) 3.7 % (0.0-3.0) H Basophils (%) (Auto) 2.7 % (0.0-2.0) H Height (Feet): 6 Weight (Pounds): 205 General Appearance: no apparent distress, alert Cardiovascular: normal rate, tachycardia Respiratory/Chest: other - mech vent Abdominal Exam: soft, distended Luciana Kohler N.PWilber Feb 08, 2017 11:06
--- NOTE | 2017-02-08 15:02 | General Progress Note ---
Assessment/Plan Status: stable Assessment/Plan status: Acute renal failure- resolved Sepsis- resolving leukocytosis DM Respiratory failure RUQ pain Anemia Plan: no labs today Hydrate- monitor renal parameters- Keep BP and BS in check urine studies- Avoid nephrotoxics Subjective ROS Limited/Unobtainable: No Constitutional: Reports: malaise Allergies: Coded Allergies: No Known Allergies (Unverified , 08/09/13) Objective Last 24 Hour Vital Signs Date Time Temp Pulse Resp B/P Pulse Ox O2 Delivery O2 Flow Rate FiO2 02/08/17 13:12 78 16 35 02/08/17 12:19 98.8 02/08/17 12:00 86 02/08/17 12:00 97.9 87 18 127/73 99 Mechanical Ventilator 35 02/08/17 11:29 89 16 35 02/08/17 09:18 97 16 35 02/08/17 08:30 35 02/08/17 08:29 114 16 35 02/08/17 08:00 98.8 100 15 128/78 99 Mechanical Ventilator 35 02/08/17 08:00 96 02/08/17 08:00 35 02/08/17 07:46 105 16 100 Mechanical Ventilator 02/08/17 07:30 99 16 99 Mechanical Ventilator 35 02/08/17 07:29 99 16 35 02/08/17 04:41 114 16 35 02/08/17 04:00 10.0 35 02/08/17 04:00 99.1 119 21 129/83 97 Mechanical Ventilator 10.0 35 02/08/17 04:00 124 02/08/17 02:59 110 21 35 02/08/17 00:49 97 16 35 02/08/17 00:00 98.4 95 16 122/75 97 Mechanical Ventilator 10.0 35 02/08/17 00:00 94 02/08/17 00:00 10.0 35 02/07/17 22:34 100 16 35 02/07/17 21:14 83 16 35 02/07/17 21:00 83 106/67 02/07/17 20:00 99.2 98 17 106/67 97 Mechanical Ventilator 10.0 35 02/07/17 20:00 103 02/07/17 20:00 10.0 35 02/07/17 18:52 103 17 35 02/07/17 16:50 92 16 35 02/07/17 16:04 10.0 35 02/07/17 16:04 82 02/07/17 16:00 99.4 94 16 124/60 97 Mechanical Ventilator 35 02/07/17 15:10 93 16 35 Intake and Output 02/07/17 02/08/17 19:00 07:00 Intake Total 850 ml 1060.0 ml Output Total 500 ml 500 ml Balance 350 ml 560.0 ml IV Total 550 ml 1060.0 ml Blood Product 300 ml Output Urine Total 500 ml 500 ml # Bowel Movements 2 Laboratory Tests 02/08/17 03:20: Sodium Level 139, Potassium Level 5.0H, Chloride Level 95L, Carbon Dioxide Level 25, Anion Gap 19H, Blood Urea Nitrogen 5L, Creatinine 1.1, Estimat Glomerular Filtration Rate > 60, Glucose Level 71L, Calcium Level 9.1, Phosphorus Level 3.4, Magnesium Level 1.8, Total Bilirubin 0.5, Aspartate Amino Transf (AST/SGOT) 26, Alanine Aminotransferase (ALT/SGPT) 15, Alkaline Phosphatase 62, Total Protein 6.6, Albumin 2.5L, Globulin 4.1, Albumin/Globulin Ratio 0.6L 02/08/17 08:25: White Blood Count 14.3H, Red Blood Count 3.67L, Hemoglobin 9.7L, Hematocrit 31.9L, Mean Corpuscular Volume 87, Mean Corpuscular Hemoglobin 26.4L, Mean Corpuscular Hemoglobin Concent 30.4L, Red Cell Distribution Width 15.6H, Platelet Count 290, Mean Platelet Volume 6.0L, Neutrophils (%) (Auto) 62.0, Lymphocytes (%) (Auto) 15.9L, Monocytes (%) (Auto) 15.7H, Eosinophils (%) (Auto ) 3.7H, Basophils (%) (Auto) 2.7H Height (Feet): 6 Weight (Pounds): 205 General Appearance: no apparent distress Objective PE not changed SAMANTHA ALLRED Feb 08, 2017 15:02
--- NOTE | 2017-02-08 16:34 | Infectious Diseases Prog Note ---
Assessment/Plan Assessment/Plan A: The patient is a 66-year-old male with Sepsis improving Pneumonia, Asp improving Scx:PSA leukocytosis Chronic respiratory failure. Hypertension. Asthma. COPD. Diabetes. SP trach a PLAN: continue the patient on Zosyn d# 6 / ( 02/07 Ps Levaquin day # 7 / ) ( 02/03 SP Teflaro d/3 3 ) Monitor CBC. Monitor BMP. Monitor chest x-ray. Subjective Constitutional: Denies: anorexia, chills, drenching sweats, fatigue, fever, no symptoms, other Allergies: Coded Allergies: No Known Allergies (Unverified , 08/09/13) Subjective on vent Objective Vital Signs Last 24 Hour Vital Signs Date Time Temp Pulse Resp B/P Pulse Ox O2 Delivery O2 Flow Rate FiO2 02/08/17 16:00 35 02/08/17 15:29 80 16 35 02/08/17 13:12 78 16 35 02/08/17 12:19 98.8 02/08/17 12:00 86 02/08/17 12:00 97.9 87 18 127/73 99 Mechanical Ventilator 35 02/08/17 11:29 89 16 35 02/08/17 09:18 97 16 35 02/08/17 08:30 35 02/08/17 08:29 114 16 35 02/08/17 08:00 98.8 100 15 128/78 99 Mechanical Ventilator 35 02/08/17 08:00 96 02/08/17 08:00 35 02/08/17 07:46 105 16 100 Mechanical Ventilator 02/08/17 07:30 99 16 99 Mechanical Ventilator 35 02/08/17 07:29 99 16 35 02/08/17 04:41 114 16 35 02/08/17 04:00 10.0 35 02/08/17 04:00 99.1 119 21 129/83 97 Mechanical Ventilator 10.0 35 02/08/17 04:00 124 02/08/17 02:59 110 21 35 02/08/17 00:49 97 16 35 02/08/17 00:00 98.4 95 16 122/75 97 Mechanical Ventilator 10.0 35 02/08/17 00:00 94 02/08/17 00:00 10.0 35 02/07/17 22:34 100 16 35 02/07/17 21:14 83 16 35 02/07/17 21:00 83 106/67 02/07/17 20:00 99.2 98 17 106/67 97 Mechanical Ventilator 10.0 35 02/07/17 20:00 103 02/07/17 20:00 10.0 35 02/07/17 18:52 103 17 35 02/07/17 16:50 92 16 35 Height (Feet): 6 Weight (Pounds): 205 Respiratory/Chest: normal breath sounds Cardiovascular: regular rhythm Abdomen: non distended Skin: no lesions Neurologic/Psychiatric: no motor/sensory deficits Laboratory Tests Test 02/08/17 03:20 02/08/17 08:25 Sodium Level 139 mEQ/L (135-145) Potassium Level 5.0 mEQ/L (3.4-4.9) H Chloride Level 95 mEQ/L (98-107) L Carbon Dioxide Level 25 mEQ/L (20-30) Anion Gap 19 (5-15) H Blood Urea Nitrogen 5 mg/dL (7-23) L Creatinine 1.1 mg/dL (0.7-1.2) Estimat Glomerular Filtration Rate > 60 mL/min (>60) Glucose Level 71 mg/dL (74-106) L Calcium Level 9.1 mg/dL (8.6-10.2) Phosphorus Level 3.4 mg/dL (2.5-4.8) Magnesium Level 1.8 mg/dL (1.7-2.5) Total Bilirubin 0.5 mg/dL (0.0-1.2) Aspartate Amino Transf (AST/SGOT) 26 U/L (5-40) Alanine Aminotransferase (ALT/SGPT) 15 U/L (3-41) Alkaline Phosphatase 62 U/L (40-129) Total Protein 6.6 g/dL (6.6-8.7) Albumin 2.5 g/dL (3.5-5.2) L Globulin 4.1 g/dL Albumin/Globulin Ratio 0.6 (1.0-2.7) L White Blood Count 14.3 K/UL (4.8-10.8) H Red Blood Count 3.67 M/UL (4.70-6.10) L Hemoglobin 9.7 G/DL (14.2-18.0) L Hematocrit 31.9 % (42.0-52.0) L Mean Corpuscular Volume 87 FL (80-99) Mean Corpuscular Hemoglobin 26.4 PG (27.0-31.0) L Mean Corpuscular Hemoglobin Concent 30.4 G/DL (32.0-36.0) L Red Cell Distribution Width 15.6 % (11.6-14.8) H Platelet Count 290 K/UL (150-450) Mean Platelet Volume 6.0 FL (6.5-10.1) L Neutrophils (%) (Auto) 62.0 % (45.0-75.0) Lymphocytes (%) (Auto) 15.9 % (20.0-45.0) L Monocytes (%) (Auto) 15.7 % (1.0-10.0) H Eosinophils (%) (Auto) 3.7 % (0.0-3.0) H Basophils (%) (Auto) 2.7 % (0.0-2.0) H Current Medications Medications (Trade) Dose Ordered Sig/Beto Route PRN Reason Start Time Stop Time Status Last Admin Dose Admin Acetaminophen (Tylenol) 650 mg Q4H PRN ORAL FEVER 02/01/17 10:45 03/03/17 10:44 02/06/17 10:04 Albuterol/ Ipratropium (DuoNeb 0.5-3(2.5)mg/3ml) 3 ml EVERY 4 HOURS PRN INH Shortness of Breath 02/07/17 09:00 02/12/17 08:59 02/08/17 07:43 Dextrose STAT PRN IV Hypoglycemia 02/01/17 10:45 03/03/17 10:44 Heparin Sodium (Porcine) (Heparin 5000 units/ml) 5,000 units EVERY 12 HOURS SUBQ 02/01/17 21:00 03/03/17 20:59 02/08/17 08:38 Iron Sucrose/ Sodium Chloride (Venofer/Sodium Chloride) 60 ml @ 240 mls/hr BEDTIME IVPB 02/06/17 21:00 02/08/17 21:14 02/07/17 21:53 Lorazepam (Ativan 2mg/ml 1ml) 2 mg Q2H PRN IV For Anxiety 02/08/17 11:30 02/15/17 11:29 Metoprolol Tartrate (Lopressor) 25 mg EVERY 12 HOURS GT 02/03/17 16:07 03/03/17 20:59 02/06/17 10:04 Morphine Sulfate (Morphine Sulfate) 4 mg Q4H PRN IVP Severe Breakthru Pain (>7) 02/08/17 11:30 02/15/17 11:29 02/08/17 15:59 Ondansetron HCl (Zofran) 4 mg Q6H PRN IVP Nausea & Vomiting 02/01/17 10:45 03/03/17 10:44 Piperacillin Sod/ Tazobactam Sod/ Dextrose (Zosyn/D5W) 110 ml @ 27.5 mls/hr Q8H IVPB 02/07/17 09:00 02/14/17 08:59 02/08/17 16:26 Polyethylene Glycol 17 gm 17 gm DAILYPRN PRN GT Constipation 02/03/17 16:07 03/03/17 10:44 Ranitidine HCl 150 mg 150 mg Q12HR GT 02/06/17 21:00 03/08/17 20:59 Sodium Chloride (Sodium Chloride 1000ml bag) 1,000 ml @ 50 mls/hr Q20H IV 02/02/17 16:15 03/04/17 16:14 02/08/17 06:09 Tamsulosin HCl (Flomax) 0.4 mg BEDTIME GT 02/03/17 16:07 03/03/17 20:59 02/05/17 20:32 SYLVESTER RODGERS M.D. Feb 08, 2017 16:34
[2017-02-08] MEDS: Iron Sucrose 100 MG in NS 55 ML IVPB SCH (20:40)
[2017-02-08] MEDS: Tamsulosin 0.4mg cap GT SCH (21:00)
[2017-02-09] MEDS: Morphine Sulfate 4mg/ml Inj IVP PRN ×4 (00:49→20:51)
[2017-02-09] MEDS: Piperacillin/Tazobactam 3.375 GM in D5W 110 ML IVPB SCH ×3 (00:57→17:09)
[2017-02-09 03:45] VITALS: BP 119/67
[2017-02-09 05:28] LABS: BASOPHILS % (AUTO) 2.5 % (0.0-2.0); LYMPHOCYTES % (AUTO) 15.2 % (20.0-45.0); MEAN CORPUSCULAR HEMOGLOBIN 25.6 PG (27.0-31.0); MEAN CORPUSCULAR HGB CONC 29.8 G/DL (32.0-36.0); MEAN CORPUSCULAR VOLUME 86 FL (80-99); MONOCYTES % (AUTO) 12.7 % (1.0-10.0); NEUTROPHILS % (AUTO) 65.7 % (45.0-75.0); PLATELET COUNT 253 K/UL (150-450); RED CELL DISTRIBUTION WIDTH 15.6 % (11.6-14.8); WHITE BLOOD COUNT 10.1 K/UL (4.8-10.8)
[2017-02-09 05:53] LABS: ALANINE AMINOTRANSFERASE 11 U/L (3-41); ALBUMIN/GLOBULIN RATIO 0.8 (1.0-2.7); ANION GAP 12 (5-15); ASPARTATE AMINO TRANSFERASE 20 U/L (5-40); CALCIUM 9.3 mg/dL (8.6-10.2); CARBON DIOXIDE 31 mEQ/L (20-30); CHLORIDE 96 mEQ/L (98-107); CREATININE 1.1 mg/dL (0.7-1.2); GLOMERULAR FILTRATION RATE > 60 mL/min (>60); HEMOLYSIS 6; MAGNESIUM 1.8 mg/dL (1.7-2.5); SODIUM 139 mEQ/L (135-145)
[2017-02-09 08:00] VITALS: BP 129/61
[2017-02-09] MEDS: Metoprolol 25mg tab GT SCH ×2 (09:00→21:00)
[2017-02-09] MEDS: Heparin 5000 units/ml inj SUBQ SCH ×2 (09:49→21:00)
--- NOTE | 2017-02-09 10:36 | Pulmonology Progress Note ---
Assessment/Plan Problems: (1) Acute and chronic respiratory failure ([id number]) (2) Sepsis (3) CHENTE (acute kidney injury) (4) Diabetes mellitus (5) Hypertension Assessment/Plan wbc is normal now didn't tolerate weaning still refusing NG tube or PEG feeding continue abx check cultures GI evaluation. Subjective ROS Limited/Unobtainable: No Constitutional: Reports: no symptoms HEENT: Repors: no symptoms Respiratory: Reports: no symptoms Allergies: Coded Allergies: No Known Allergies (Unverified , 08/09/13) Objective Last 24 Hour Vital Signs Date Time Temp Pulse Resp B/P Pulse Ox O2 Delivery O2 Flow Rate FiO2 02/09/17 09:28 74 16 35 02/09/17 09:00 74 129/61 02/09/17 08:00 97.7 67 16 129/61 94 Mechanical Ventilator 35 02/09/17 08:00 35 02/09/17 07:26 71 02/09/17 07:24 70 14 35 02/09/17 04:49 68 16 35 02/09/17 04:00 35 02/09/17 04:00 71 02/09/17 03:45 98.1 70 16 119/67 93 Mechanical Ventilator 40 02/09/17 03:11 71 16 35 02/09/17 00:56 82 16 35 02/09/17 00:00 84 02/09/17 00:00 35 02/08/17 23:58 98.4 80 16 116/67 96 Mechanical Ventilator 35 02/08/17 23:06 105 16 95 Mechanical Ventilator 02/08/17 23:05 94 16 95 Mechanical Ventilator 35 02/08/17 22:44 92 16 35 02/08/17 20:59 75 16 35 02/08/17 20:00 82 02/08/17 20:00 35 02/08/17 19:54 97.7 74 16 120/70 95 Mechanical Ventilator 30 02/08/17 18:54 77 16 35 02/08/17 17:32 77 16 35 02/08/17 16:34 98.2 02/08/17 16:00 35 02/08/17 16:00 71 02/08/17 16:00 98.2 78 18 121/77 99 Mechanical Ventilator 35 02/08/17 15:29 80 16 35 02/08/17 13:12 78 16 35 02/08/17 12:00 86 02/08/17 12:00 97.9 87 18 127/73 99 Mechanical Ventilator 35 02/08/17 11:29 89 16 35 Intake and Output 02/08/17 02/09/17 19:00 07:00 Intake Total 565.0 ml 662.5 ml Output Total 700 ml Balance 565.0 ml -37.5 ml IV Total 565.0 ml 662.5 ml Output Urine Total 700 ml Objective General Appearance: WD/WN HEENT: normocephalic, atraumatic, status post trach Respiratory/Chest: chest wall non-tender, lungs clear Genitourinary: normal external genitalia Extremities: no cyanosis 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, oriented x 3 Laboratory Tests 02/09/17 04:40: White Blood Count 10.1, Red Blood Count 3.40L, Hemoglobin 8.7L, Hematocrit 29.2L , Mean Corpuscular Volume 86, Mean Corpuscular Hemoglobin 25.6L, Mean Corpuscular Hemoglobin Concent 29.8L, Red Cell Distribution Width 15.6H, Platelet Count 253, Mean Platelet Volume 6.0L, Neutrophils (%) (Auto) 65.7, Lymphocytes (%) (Auto) 15.2L, Monocytes (%) (Auto) 12.7H, Eosinophils (%) (Auto ) 4.0H, Basophils (%) (Auto) 2.5H, Sodium Level 139, Potassium Level 4.0, Chloride Level 96L, Carbon Dioxide Level 31H, Anion Gap 12, Blood Urea Nitrogen 5L, Creatinine 1.1, Estimat Glomerular Filtration Rate > 60, Glucose Level 76, Calcium Level 9.3, Phosphorus Level 3.0, Magnesium Level 1.8, Total Bilirubin 0.4, Aspartate Amino Transf (AST/SGOT) 20, Alanine Aminotransferase (ALT/SGPT) 11, Alkaline Phosphatase 62, Total Protein 6.0L, Albumin 2.8L, Globulin 3.2, Albumin/Globulin Ratio 0.8L Current Medications Medications (Trade) Dose Ordered Sig/Beto Route PRN Reason Start Time Stop Time Status Last Admin Dose Admin Acetaminophen (Tylenol) 650 mg Q4H PRN ORAL FEVER 02/01/17 10:45 03/03/17 10:44 02/06/17 10:04 Albuterol/ Ipratropium (DuoNeb 0.5-3(2.5)mg/3ml) 3 ml EVERY 4 HOURS PRN INH Shortness of Breath 02/07/17 09:00 02/12/17 08:59 02/08/17 23:05 Dextrose STAT PRN IV Hypoglycemia 02/01/17 10:45 03/03/17 10:44 Heparin Sodium (Porcine) (Heparin 5000 units/ml) 5,000 units EVERY 12 HOURS SUBQ 02/01/17 21:00 03/03/17 20:59 02/09/17 09:49 Lorazepam (Ativan 2mg/ml 1ml) 2 mg Q2H PRN IV For Anxiety 02/08/17 11:30 02/15/17 11:29 Metoprolol Tartrate (Lopressor) 25 mg EVERY 12 HOURS GT 02/03/17 16:07 03/03/17 20:59 02/06/17 10:04 Morphine Sulfate (Morphine Sulfate) 4 mg Q4H PRN IVP Severe Breakthru Pain (>7) 02/08/17 11:30 02/15/17 11:29 02/09/17 06:03 Ondansetron HCl (Zofran) 4 mg Q6H PRN IVP Nausea & Vomiting 02/01/17 10:45 03/03/17 10:44 Piperacillin Sod/ Tazobactam Sod/ Dextrose (Zosyn/D5W) 110 ml @ 27.5 mls/hr Q8H IVPB 02/07/17 09:00 02/14/17 08:59 02/09/17 09:47 Polyethylene Glycol (Miralax) 17 gm DAILYPRN PRN GT Constipation 02/03/17 16:07 03/03/17 10:44 Ranitidine HCl 150 mg 150 mg Q12HR GT 02/06/17 21:00 03/08/17 20:59 Sodium Chloride (Sodium Chloride 1000ml bag) 1,000 ml @ 50 mls/hr Q20H IV 02/02/17 16:15 03/04/17 16:14 02/09/17 09:50 Tamsulosin HCl (Flomax) 0.4 mg BEDTIME GT 02/03/17 16:07 03/03/17 20:59 02/05/17 20:32 VALERIE WASHINGTON Feb 09, 2017 10:36
--- NOTE | 2017-02-09 10:52 | Infectious Diseases Prog Note ---
Assessment/Plan Assessment/Plan A: The patient is a 66-year-old male with Sepsis, SP Pneumonia, Asp improving Scx:PSA leukocytosis, SP Chronic respiratory failure. Hypertension. Asthma. COPD. Diabetes. SP trach a PLAN: continue the patient on Zosyn d# / ( 02/07 Ps Levaquin day # ) ( 02/03 SP Teflaro d/3 3 ) Monitor CBC. Monitor BMP. Monitor chest x-ray. Subjective Allergies: Coded Allergies: No Known Allergies (Unverified , 08/09/13) Subjective on vent Objective Vital Signs Last 24 Hour Vital Signs Date Time Temp Pulse Resp B/P Pulse Ox O2 Delivery O2 Flow Rate FiO2 02/09/17 09:28 74 16 35 02/09/17 09:00 74 129/61 02/09/17 08:00 97.7 67 16 129/61 94 Mechanical Ventilator 35 02/09/17 08:00 35 02/09/17 07:26 71 02/09/17 07:24 70 14 35 02/09/17 04:49 68 16 35 02/09/17 04:00 35 02/09/17 04:00 71 02/09/17 03:45 98.1 70 16 119/67 93 Mechanical Ventilator 40 02/09/17 03:11 71 16 35 02/09/17 00:56 82 16 35 02/09/17 00:00 84 02/09/17 00:00 35 02/08/17 23:58 98.4 80 16 116/67 96 Mechanical Ventilator 35 02/08/17 23:06 105 16 95 Mechanical Ventilator 02/08/17 23:05 94 16 95 Mechanical Ventilator 35 02/08/17 22:44 92 16 35 02/08/17 20:59 75 16 35 02/08/17 20:00 82 02/08/17 20:00 35 02/08/17 19:54 97.7 74 16 120/70 95 Mechanical Ventilator 30 02/08/17 18:54 77 16 35 02/08/17 17:32 77 16 35 02/08/17 16:34 98.2 02/08/17 16:00 35 02/08/17 16:00 71 02/08/17 16:00 98.2 78 18 121/77 99 Mechanical Ventilator 35 02/08/17 15:29 80 16 35 02/08/17 13:12 78 16 35 02/08/17 12:00 86 02/08/17 12:00 97.9 87 18 127/73 99 Mechanical Ventilator 35 02/08/17 11:29 89 16 35 Height (Feet): 6 Weight (Pounds): 205 HEENT: atraumatic Respiratory/Chest: decreased breath sounds Cardiovascular: normal rate Abdomen: non distended Laboratory Tests Test 02/09/17 04:40 White Blood Count 10.1 K/UL (4.8-10.8) Red Blood Count 3.40 M/UL (4.70-6.10) L Hemoglobin 8.7 G/DL (14.2-18.0) L Hematocrit 29.2 % (42.0-52.0) L Mean Corpuscular Volume 86 FL (80-99) Mean Corpuscular Hemoglobin 25.6 PG (27.0-31.0) L Mean Corpuscular Hemoglobin Concent 29.8 G/DL (32.0-36.0) L Red Cell Distribution Width 15.6 % (11.6-14.8) H Platelet Count 253 K/UL (150-450) Mean Platelet Volume 6.0 FL (6.5-10.1) L Neutrophils (%) (Auto) 65.7 % (45.0-75.0) Lymphocytes (%) (Auto) 15.2 % (20.0-45.0) L Monocytes (%) (Auto) 12.7 % (1.0-10.0) H Eosinophils (%) (Auto) 4.0 % (0.0-3.0) H Basophils (%) (Auto) 2.5 % (0.0-2.0) H Sodium Level 139 mEQ/L (135-145) Potassium Level 4.0 mEQ/L (3.4-4.9) Chloride Level 96 mEQ/L (98-107) L Carbon Dioxide Level 31 mEQ/L (20-30) H Anion Gap 12 (5-15) Blood Urea Nitrogen 5 mg/dL (7-23) L Creatinine 1.1 mg/dL (0.7-1.2) Estimat Glomerular Filtration Rate > 60 mL/min (>60) Glucose Level 76 mg/dL (74-106) Calcium Level 9.3 mg/dL (8.6-10.2) Phosphorus Level 3.0 mg/dL (2.5-4.8) Magnesium Level 1.8 mg/dL (1.7-2.5) Total Bilirubin 0.4 mg/dL (0.0-1.2) Aspartate Amino Transf (AST/SGOT) 20 U/L (5-40) Alanine Aminotransferase (ALT/SGPT) 11 U/L (3-41) Alkaline Phosphatase 62 U/L (40-129) Total Protein 6.0 g/dL (6.6-8.7) L Albumin 2.8 g/dL (3.5-5.2) L Globulin 3.2 g/dL Albumin/Globulin Ratio 0.8 (1.0-2.7) L Current Medications Medications (Trade) Dose Ordered Sig/Beto Route PRN Reason Start Time Stop Time Status Last Admin Dose Admin Acetaminophen (Tylenol) 650 mg Q4H PRN ORAL FEVER 02/01/17 10:45 03/03/17 10:44 02/06/17 10:04 Albuterol/ Ipratropium (DuoNeb 0.5-3(2.5)mg/3ml) 3 ml EVERY 4 HOURS PRN INH Shortness of Breath 02/07/17 09:00 02/12/17 08:59 02/08/17 23:05 Dextrose STAT PRN IV Hypoglycemia 02/01/17 10:45 03/03/17 10:44 Heparin Sodium (Porcine) (Heparin 5000 units/ml) 5,000 units EVERY 12 HOURS SUBQ 02/01/17 21:00 03/03/17 20:59 02/09/17 09:49 Lorazepam (Ativan 2mg/ml 1ml) 2 mg Q2H PRN IV For Anxiety 02/08/17 11:30 02/15/17 11:29 Metoprolol Tartrate (Lopressor) 25 mg EVERY 12 HOURS GT 02/03/17 16:07 03/03/17 20:59 02/06/17 10:04 Morphine Sulfate (Morphine Sulfate) 4 mg Q4H PRN IVP Severe Breakthru Pain (>7) 02/08/17 11:30 02/15/17 11:29 02/09/17 06:03 Ondansetron HCl (Zofran) 4 mg Q6H PRN IVP Nausea & Vomiting 02/01/17 10:45 03/03/17 10:44 Piperacillin Sod/ Tazobactam Sod/ Dextrose (Zosyn/D5W) 110 ml @ 27.5 mls/hr Q8H IVPB 02/07/17 09:00 02/14/17 08:59 02/09/17 09:47 Polyethylene Glycol (Miralax) 17 gm DAILYPRN PRN GT Constipation 02/03/17 16:07 03/03/17 10:44 Ranitidine HCl 150 mg 150 mg Q12HR GT 02/06/17 21:00 03/08/17 20:59 Sodium Chloride (Sodium Chloride 1000ml bag) 1,000 ml @ 50 mls/hr Q20H IV 02/02/17 16:15 03/04/17 16:14 02/09/17 09:50 Tamsulosin HCl (Flomax) 0.4 mg BEDTIME GT 02/03/17 16:07 03/03/17 20:59 02/05/17 20:32 SYLVESTER RODGERS M.D. Feb 09, 2017 10:52
--- NOTE | 2017-02-09 11:36 | GI Progress Note ---
Assessment/Plan Problems: (1) Iron (Fe) deficiency anemia ICD Codes: D50.9 - Iron deficiency anemia, unspecified SNOMED: 40466715 (2) RLL pneumonia ICD Codes: J18.1 - Lobar pneumonia, unspecified organism SNOMED: 242501716 (3) Right upper quadrant abdominal pain ICD Codes: R10.11 - Right upper quadrant pain SNOMED: 404127645 (4) Diabetes mellitus ICD Codes: E11.9 - Type 2 diabetes mellitus without complications SNOMED: 36653976 (5) Sepsis ICD Codes: A41.9 - Sepsis, unspecified organism SNOMED: 84279796 (6) Constipation ICD Codes: K59.00 - Constipation, unspecified SNOMED: 33107684 Status: unchanged Status Narrative Discussed with Dr. Hsu. Assessment/Plan Assessment - RUQ abd TTP with negative CT/ultrasound most likely from R sided pneumonia. - pyelo - diverticulosis - mild anemia - Azotemia - Resp failure / Trach Recommendations EGD/PEG scheduled for tomorrow >> pt agreed - NPO @ MN - hold all blood thinners iron deficient >> venofer abx monitor H&H, transfuse prn H2 fu labs Subjective Subjective pt agreed to peg Objective Last 24 Hour Vital Signs Date Time Temp Pulse Resp B/P Pulse Ox O2 Delivery O2 Flow Rate FiO2 02/09/17 10:59 94 16 35 02/09/17 09:28 74 16 35 02/09/17 09:00 74 129/61 02/09/17 08:00 97.7 67 16 129/61 94 Mechanical Ventilator 35 02/09/17 08:00 35 02/09/17 07:26 71 02/09/17 07:24 70 14 35 02/09/17 04:49 68 16 35 02/09/17 04:00 35 02/09/17 04:00 71 02/09/17 03:45 98.1 70 16 119/67 93 Mechanical Ventilator 40 02/09/17 03:11 71 16 35 02/09/17 00:56 82 16 35 02/09/17 00:00 84 02/09/17 00:00 35 02/08/17 23:58 98.4 80 16 116/67 96 Mechanical Ventilator 35 02/08/17 23:06 105 16 95 Mechanical Ventilator 02/08/17 23:05 94 16 95 Mechanical Ventilator 35 02/08/17 22:44 92 16 35 02/08/17 20:59 75 16 35 02/08/17 20:00 82 02/08/17 20:00 35 02/08/17 19:54 97.7 74 16 120/70 95 Mechanical Ventilator 30 02/08/17 18:54 77 16 35 02/08/17 17:32 77 16 35 02/08/17 16:34 98.2 02/08/17 16:00 35 02/08/17 16:00 71 02/08/17 16:00 98.2 78 18 121/77 99 Mechanical Ventilator 35 02/08/17 15:29 80 16 35 02/08/17 13:12 78 16 35 02/08/17 12:00 86 02/08/17 12:00 97.9 87 18 127/73 99 Mechanical Ventilator 35 Intake and Output 02/08/17 02/09/17 19:00 07:00 Intake Total 565.0 ml 662.5 ml Output Total 700 ml Balance 565.0 ml -37.5 ml IV Total 565.0 ml 662.5 ml Output Urine Total 700 ml Laboratory Tests Test 02/09/17 04:40 White Blood Count 10.1 K/UL (4.8-10.8) Red Blood Count 3.40 M/UL (4.70-6.10) L Hemoglobin 8.7 G/DL (14.2-18.0) L Hematocrit 29.2 % (42.0-52.0) L Mean Corpuscular Volume 86 FL (80-99) Mean Corpuscular Hemoglobin 25.6 PG (27.0-31.0) L Mean Corpuscular Hemoglobin Concent 29.8 G/DL (32.0-36.0) L Red Cell Distribution Width 15.6 % (11.6-14.8) H Platelet Count 253 K/UL (150-450) Mean Platelet Volume 6.0 FL (6.5-10.1) L Neutrophils (%) (Auto) 65.7 % (45.0-75.0) Lymphocytes (%) (Auto) 15.2 % (20.0-45.0) L Monocytes (%) (Auto) 12.7 % (1.0-10.0) H Eosinophils (%) (Auto) 4.0 % (0.0-3.0) H Basophils (%) (Auto) 2.5 % (0.0-2.0) H Sodium Level 139 mEQ/L (135-145) Potassium Level 4.0 mEQ/L (3.4-4.9) Chloride Level 96 mEQ/L (98-107) L Carbon Dioxide Level 31 mEQ/L (20-30) H Anion Gap 12 (5-15) Blood Urea Nitrogen 5 mg/dL (7-23) L Creatinine 1.1 mg/dL (0.7-1.2) Estimat Glomerular Filtration Rate > 60 mL/min (>60) Glucose Level 76 mg/dL (74-106) Calcium Level 9.3 mg/dL (8.6-10.2) Phosphorus Level 3.0 mg/dL (2.5-4.8) Magnesium Level 1.8 mg/dL (1.7-2.5) Total Bilirubin 0.4 mg/dL (0.0-1.2) Aspartate Amino Transf (AST/SGOT) 20 U/L (5-40) Alanine Aminotransferase (ALT/SGPT) 11 U/L (3-41) Alkaline Phosphatase 62 U/L (40-129) Total Protein 6.0 g/dL (6.6-8.7) L Albumin 2.8 g/dL (3.5-5.2) L Globulin 3.2 g/dL Albumin/Globulin Ratio 0.8 (1.0-2.7) L Height (Feet): 6 Weight (Pounds): 205 General Appearance: no apparent distress, alert Cardiovascular: normal rate Respiratory/Chest: other - mech vent Abdominal Exam: soft, distended Luciana Kohler NWilberPWilber Feb 09, 2017 11:36
[2017-02-09 12:00] VITALS: BP 133/74
[2017-02-09] MEDS: DuoNeb 0.5-3(2.5)mg/3ml neb INH PRN ×2 (12:54→19:46)
--- NOTE | 2017-02-09 14:46 | General Progress Note ---
Assessment/Plan Status: stable Status Narrative due PEG tomorrow Assessment/Plan status: Acute renal failure- resolved Sepsis- resolving leukocytosis DM Respiratory failure RUQ pain Anemia Plan: Hydrate- monitor renal parameters- Keep BP and BS in check urine studies- Avoid nephrotoxics Subjective ROS Limited/Unobtainable: Yes Allergies: Coded Allergies: No Known Allergies (Unverified , 08/09/13) Objective Last 24 Hour Vital Signs Date Time Temp Pulse Resp B/P Pulse Ox O2 Delivery O2 Flow Rate FiO2 02/09/17 12:54 86 16 35 02/09/17 12:00 35 02/09/17 12:00 99.0 94 16 133/74 95 Mechanical Ventilator 35 02/09/17 11:32 94 02/09/17 10:59 94 16 35 02/09/17 09:28 74 16 35 02/09/17 09:00 74 129/61 02/09/17 08:00 97.7 67 16 129/61 94 Mechanical Ventilator 35 02/09/17 08:00 35 02/09/17 07:26 71 02/09/17 07:24 70 14 35 02/09/17 04:49 68 16 35 02/09/17 04:00 35 02/09/17 04:00 71 02/09/17 03:45 98.1 70 16 119/67 93 Mechanical Ventilator 40 02/09/17 03:11 71 16 35 02/09/17 00:56 82 16 35 02/09/17 00:00 84 02/09/17 00:00 35 02/08/17 23:58 98.4 80 16 116/67 96 Mechanical Ventilator 35 02/08/17 23:06 105 16 95 Mechanical Ventilator 02/08/17 23:05 94 16 95 Mechanical Ventilator 35 02/08/17 22:44 92 16 35 02/08/17 20:59 75 16 35 02/08/17 20:00 82 02/08/17 20:00 35 02/08/17 19:54 97.7 74 16 120/70 95 Mechanical Ventilator 30 02/08/17 18:54 77 16 35 02/08/17 17:32 77 16 35 02/08/17 16:34 98.2 02/08/17 16:00 35 02/08/17 16:00 71 02/08/17 16:00 98.2 78 18 121/77 99 Mechanical Ventilator 35 02/08/17 15:29 80 16 35 Intake and Output 02/08/17 02/09/17 19:00 07:00 Intake Total 565.0 ml 662.5 ml Output Total 700 ml Balance 565.0 ml -37.5 ml IV Total 565.0 ml 662.5 ml Output Urine Total 700 ml Laboratory Tests 02/09/17 04:40: White Blood Count 10.1, Red Blood Count 3.40L, Hemoglobin 8.7L, Hematocrit 29.2L , Mean Corpuscular Volume 86, Mean Corpuscular Hemoglobin 25.6L, Mean Corpuscular Hemoglobin Concent 29.8L, Red Cell Distribution Width 15.6H, Platelet Count 253, Mean Platelet Volume 6.0L, Neutrophils (%) (Auto) 65.7, Lymphocytes (%) (Auto) 15.2L, Monocytes (%) (Auto) 12.7H, Eosinophils (%) (Auto ) 4.0H, Basophils (%) (Auto) 2.5H, Sodium Level 139, Potassium Level 4.0, Chloride Level 96L, Carbon Dioxide Level 31H, Anion Gap 12, Blood Urea Nitrogen 5L, Creatinine 1.1, Estimat Glomerular Filtration Rate > 60, Glucose Level 76, Calcium Level 9.3, Phosphorus Level 3.0, Magnesium Level 1.8, Total Bilirubin 0.4, Aspartate Amino Transf (AST/SGOT) 20, Alanine Aminotransferase (ALT/SGPT) 11, Alkaline Phosphatase 62, Total Protein 6.0L, Albumin 2.8L, Globulin 3.2, Albumin/Globulin Ratio 0.8L Height (Feet): 6 Weight (Pounds): 205 General Appearance: no apparent distress Objective PE not changed SAMANTHA ALLRED Feb 09, 2017 14:46
[2017-02-09 16:00] VITALS: BP 143/77
[2017-02-09 20:12] VITALS: BP 127/75
[2017-02-09] MEDS: Tamsulosin 0.4mg cap GT SCH (21:00)
--- NOTE | 2017-02-09 23:24 | Diagnostic Imaging Report ---
APPROVED REPORT CPT Code: 61082 Present Symptoms Shortness of breath BILATERAL: Imaging reveals a patent deep venous system bilaterally. There is no evidence of thrombus within the femoral, popliteal or tibial segments. The greater saphenous veins are also within normal limits. Doppler indicates normal spontaneous flow within these segments.
[2017-02-10 00:33] VITALS: BP 130/70
[2017-02-10] MEDS: Piperacillin/Tazobactam 3.375 GM in D5W 110 ML IVPB SCH ×3 (01:14→16:00)
[2017-02-10 04:29] VITALS: BP 132/75
[2017-02-10] MEDS: Morphine Sulfate 4mg/ml Inj IVP PRN ×4 (04:48→20:21)
[2017-02-10] MEDS: DuoNeb 0.5-3(2.5)mg/3ml neb INH PRN ×3 (05:08→21:16)
[2017-02-10 05:19] LABS: BASOPHILS % (AUTO) 1.6 % (0.0-2.0); EOSINOPHILS % (AUTO) 3.3 % (0.0-3.0); LYMPHOCYTES % (AUTO) 16.3 % (20.0-45.0); MEAN CORPUSCULAR HEMOGLOBIN 26.3 PG (27.0-31.0); MEAN CORPUSCULAR HGB CONC 30.4 G/DL (32.0-36.0); MEAN CORPUSCULAR VOLUME 87 FL (80-99); MEAN PLATELET VOLUME 6.1 FL (6.5-10.1); NEUTROPHILS % (AUTO) 66.8 % (45.0-75.0); PLATELET COUNT 288 K/UL (150-450); RED BLOOD COUNT 3.39 M/UL (4.70-6.10); RED CELL DISTRIBUTION WIDTH 16.1 % (11.6-14.8); WHITE BLOOD COUNT 10.5 K/UL (4.8-10.8)
[2017-02-10 05:33] LABS: INR 1.1 (0.9-1.1); PROTHROMBIN TIME 11.2 SEC (9.30-11.50)
[2017-02-10 06:13] LABS: ALANINE AMINOTRANSFERASE 13 U/L (3-41); ALBUMIN/GLOBULIN RATIO 0.6 (1.0-2.7); ANION GAP 14 (5-15); ASPARTATE AMINO TRANSFERASE 19 U/L (5-40); CALCIUM 9.1 mg/dL (8.6-10.2); CARBON DIOXIDE 28 mEQ/L (20-30); CHLORIDE 94 mEQ/L (98-107); GLOMERULAR FILTRATION RATE > 60 mL/min (>60); HEMOLYSIS 6; POTASSIUM 3.9 mEQ/L (3.4-4.9); SODIUM 136 mEQ/L (135-145); TOTAL PROTEIN 6.2 g/dL (6.6-8.7)
[2017-02-10 08:00] VITALS: BP 113/64
[2017-02-10] MEDS: Metoprolol 25mg tab GT SCH ×2 (08:23→20:19)
[2017-02-10] MEDS: Heparin 5000 units/ml inj SUBQ SCH ×2 (08:24→20:22)
--- NOTE | 2017-02-10 08:26 | Pre-Procedure Note/Attestation ---
Pre-Procedure Note/Attestation Complete Prior to Procedure Planned Procedure: not applicable Procedure Narrative: egd/peg Indications for Procedure Pre-Operative Diagnosis: ftt, dysphagia Attestation I attest that I discussed the nature of the procedure; its benefits; risks and complications; and alternatives (and the risks and benefits of such alternatives ), prior to the procedure, with the patient (or the patient's legal customer response representative). I attest that, if there was a reasonable possibility of needing a blood transfusion, the patient (or the patient's legal customer response representative) was given the [facility] standardized written summary, pursuant to the Emil Alcides Blood Safety Act ([place] Health and Safety Code # 1645, as amended). I attest that I re-evaluated the patient just prior to the surgery and that there has been no change in the patient's H&P, except as documented below: CIARAN NARAYAN Feb 10, 2017 08:26
[2017-02-10] MEDS ORDERED: NS 275ml ONE (10:26)
--- NOTE | 2017-02-10 10:36 | General Progress Note ---
Assessment/Plan Status: stable Status Narrative due PEG today- Assessment/Plan status: Acute renal failure- resolved Sepsis- resolving leukocytosis DM Respiratory failure RUQ pain Anemia Plan: Hydrate- monitor renal parameters- Keep BP and BS in check urine studies- Avoid nephrotoxics Subjective ROS Limited/Unobtainable: No Allergies: Coded Allergies: No Known Allergies (Unverified , 08/09/13) Objective Last 24 Hour Vital Signs Date Time Temp Pulse Resp B/P Pulse Ox O2 Delivery O2 Flow Rate FiO2 02/10/17 09:25 77 16 35 02/10/17 08:23 78 132/75 02/10/17 08:21 68 02/10/17 08:00 35 02/10/17 08:00 97.9 65 16 113/64 94 Mechanical Ventilator 02/10/17 07:50 75 16 35 02/10/17 05:08 78 16 35 02/10/17 05:08 78 16 99 Mechanical Ventilator 35 02/10/17 04:29 97.2 71 17 132/75 96 Mechanical Ventilator 02/10/17 04:00 35 02/10/17 03:50 67 02/10/17 03:23 75 16 35 02/10/17 01:00 70 16 35 02/10/17 00:33 98.1 75 18 130/70 Mechanical Ventilator 02/10/17 00:00 35 02/09/17 23:41 77 02/09/17 23:30 77 16 35 02/09/17 21:04 87 16 35 02/09/17 21:00 87 127/75 02/09/17 20:12 99.5 80 17 127/75 98 Trach Collar 02/09/17 20:00 35 02/09/17 19:57 86 16 98 Mechanical Ventilator 02/09/17 19:46 84 16 96 Mechanical Ventilator 35 02/09/17 19:40 85 02/09/17 19:30 84 16 35 02/09/17 17:20 88 16 35 02/09/17 16:00 35 02/09/17 16:00 98.8 86 16 143/77 95 Mechanical Ventilator 35 02/09/17 15:35 86 02/09/17 15:20 86 16 35 02/09/17 13:05 88 16 98 Mechanical Ventilator 02/09/17 12:55 88 16 94 Mechanical Ventilator 35 02/09/17 12:54 86 16 35 02/09/17 12:00 35 02/09/17 12:00 99.0 94 16 133/74 95 Mechanical Ventilator 35 02/09/17 11:32 94 02/09/17 10:59 94 16 35 Intake and Output 02/09/17 02/10/17 19:00 07:00 Intake Total 723.33 ml 765.0 ml Output Total 1800 ml 750 ml Balance -1076.67 ml 15.0 ml IV Total 723.33 ml 765.0 ml Output Urine Total 1800 ml 750 ml Laboratory Tests 02/10/17 03:42: White Blood Count 10.5, Red Blood Count 3.39L, Hemoglobin 8.9L, Hematocrit 29.4L , Mean Corpuscular Volume 87, Mean Corpuscular Hemoglobin 26.3L, Mean Corpuscular Hemoglobin Concent 30.4L, Red Cell Distribution Width 16.1H, Platelet Count 288, Mean Platelet Volume 6.1L, Neutrophils (%) (Auto) 66.8, Lymphocytes (%) (Auto) 16.3L, Monocytes (%) (Auto) 12.0H, Eosinophils (%) (Auto ) 3.3H, Basophils (%) (Auto) 1.6, Prothrombin Time 11.2, Prothromb Time International Ratio 1.1, Activated Partial Thromboplast Time 30, Sodium Level 136, Potassium Level 3.9, Chloride Level 94L, Carbon Dioxide Level 28, Anion Gap 14, Blood Urea Nitrogen 4L, Creatinine 1.0, Estimat Glomerular Filtration Rate > 60, Glucose Level 70L, Calcium Level 9.1, Total Bilirubin 0.4, Aspartate Amino Transf (AST/SGOT) 19, Alanine Aminotransferase (ALT/SGPT) 13, Alkaline Phosphatase 56, Total Protein 6.2L, Albumin 2.5L, Globulin 3.7, Albumin/ Globulin Ratio 0.6L Height (Feet): 6 Weight (Pounds): 220 General Appearance: no apparent distress Objective PE not changed SAMANTHA ALLRED Feb 10, 2017 10:36
--- NOTE | 2017-02-10 11:02 | Diagnostic Imaging Report ---
Indication: DYSPNEA Technique: One view of the chest Comparison: Or 2016 Findings: Tracheostomy remains. Nasogastric tube is been removed. Infiltrates at both lung bases persists and are largely unchanged. Impression: Interim nasogastric tube removal. Unchanged bibasilar infiltrates, over 5 days
--- NOTE | 2017-02-10 11:18 | Pulmonology Progress Note ---
Assessment/Plan Problems: (1) Acute and chronic respiratory failure ([id number]) (2) Sepsis (3) CHENTE (acute kidney injury) (4) Diabetes mellitus (5) Hypertension Assessment/Plan getting feeding tube today cant' we weaned yet cxr showing rll infiltrate wbc is normal now didn't tolerate weaning continue abx check cultures GI evaluation. Subjective ROS Limited/Unobtainable: No Constitutional: Reports: no symptoms HEENT: Repors: no symptoms Respiratory: Reports: no symptoms Allergies: Coded Allergies: No Known Allergies (Unverified , 08/09/13) Objective Last 24 Hour Vital Signs Date Time Temp Pulse Resp B/P Pulse Ox O2 Delivery O2 Flow Rate FiO2 02/10/17 09:25 77 16 35 02/10/17 08:23 78 132/75 02/10/17 08:21 68 02/10/17 08:00 35 02/10/17 08:00 97.9 65 16 113/64 94 Mechanical Ventilator 02/10/17 07:50 75 16 35 02/10/17 05:08 78 16 35 02/10/17 05:08 78 16 99 Mechanical Ventilator 35 02/10/17 04:29 97.2 71 17 132/75 96 Mechanical Ventilator 02/10/17 04:00 35 02/10/17 03:50 67 02/10/17 03:23 75 16 35 02/10/17 01:00 70 16 35 02/10/17 00:33 98.1 75 18 130/70 Mechanical Ventilator 02/10/17 00:00 35 02/09/17 23:41 77 02/09/17 23:30 77 16 35 02/09/17 21:04 87 16 35 02/09/17 21:00 87 127/75 02/09/17 20:12 99.5 80 17 127/75 98 Trach Collar 02/09/17 20:00 35 02/09/17 19:57 86 16 98 Mechanical Ventilator 02/09/17 19:46 84 16 96 Mechanical Ventilator 35 02/09/17 19:40 85 02/09/17 19:30 84 16 35 02/09/17 17:20 88 16 35 02/09/17 16:00 35 02/09/17 16:00 98.8 86 16 143/77 95 Mechanical Ventilator 35 02/09/17 15:35 86 02/09/17 15:20 86 16 35 02/09/17 13:05 88 16 98 Mechanical Ventilator 02/09/17 12:55 88 16 94 Mechanical Ventilator 35 02/09/17 12:54 86 16 35 02/09/17 12:00 35 02/09/17 12:00 99.0 94 16 133/74 95 Mechanical Ventilator 35 02/09/17 11:32 94 Intake and Output 02/09/17 02/10/17 19:00 07:00 Intake Total 723.33 ml 765.0 ml Output Total 1800 ml 750 ml Balance -1076.67 ml 15.0 ml IV Total 723.33 ml 765.0 ml Output Urine Total 1800 ml 750 ml Objective General Appearance: WD/WN HEENT: normocephalic, atraumatic, status post trach Respiratory/Chest: chest wall non-tender, lungs clear Genitourinary: normal external genitalia Extremities: no cyanosis Neurologic/Psychiatric: assistant in nursing II-XII grossly normal, oriented x 3 Laboratory Tests 02/10/17 03:42: White Blood Count 10.5, Red Blood Count 3.39L, Hemoglobin 8.9L, Hematocrit 29.4L , Mean Corpuscular Volume 87, Mean Corpuscular Hemoglobin 26.3L, Mean Corpuscular Hemoglobin Concent 30.4L, Red Cell Distribution Width 16.1H, Platelet Count 288, Mean Platelet Volume 6.1L, Neutrophils (%) (Auto) 66.8, Lymphocytes (%) (Auto) 16.3L, Monocytes (%) (Auto) 12.0H, Eosinophils (%) (Auto ) 3.3H, Basophils (%) (Auto) 1.6, Prothrombin Time 11.2, Prothromb Time International Ratio 1.1, Activated Partial Thromboplast Time 30, Sodium Level 136, Potassium Level 3.9, Chloride Level 94L, Carbon Dioxide Level 28, Anion Gap 14, Blood Urea Nitrogen 4L, Creatinine 1.0, Estimat Glomerular Filtration Rate > 60, Glucose Level 70L, Calcium Level 9.1, Total Bilirubin 0.4, Aspartate Amino Transf (AST/SGOT) 19, Alanine Aminotransferase (ALT/SGPT) 13, Alkaline Phosphatase 56, Total Protein 6.2L, Albumin 2.5L, Globulin 3.7, Albumin/ Globulin Ratio 0.6L Current Medications Medications (Trade) Dose Ordered Sig/Beto Route PRN Reason Start Time Stop Time Status Last Admin Dose Admin Acetaminophen (Tylenol) 650 mg Q4H PRN ORAL FEVER 02/01/17 10:45 03/03/17 10:44 02/06/17 10:04 Albuterol/ Ipratropium (DuoNeb 0.5-3(2.5)mg/3ml) 3 ml EVERY 4 HOURS PRN INH Shortness of Breath 02/07/17 09:00 02/12/17 08:59 02/10/17 05:08 Dextrose STAT PRN IV Hypoglycemia 02/01/17 10:45 03/03/17 10:44 Heparin Sodium (Porcine) (Heparin 5000 units/ml) 5,000 units EVERY 12 HOURS SUBQ 02/01/17 21:00 03/03/17 20:59 02/09/17 09:49 Lorazepam (Ativan 2mg/ml 1ml) 2 mg Q2H PRN IV For Anxiety 02/08/17 11:30 02/15/17 11:29 Metoprolol Tartrate (Lopressor) 25 mg EVERY 12 HOURS GT 02/03/17 16:07 03/03/17 20:59 02/06/17 10:04 Morphine Sulfate (Morphine Sulfate) 4 mg Q4H PRN IVP Severe Breakthru Pain (>7) 02/08/17 11:30 02/15/17 11:29 02/10/17 09:40 Ondansetron HCl (Zofran) 4 mg Q6H PRN IVP Nausea & Vomiting 02/01/17 10:45 03/03/17 10:44 Piperacillin Sod/ Tazobactam Sod/ Dextrose (Zosyn/D5W) 110 ml @ 27.5 mls/hr Q8H IVPB 02/07/17 09:00 02/14/17 08:59 02/10/17 08:16 Polyethylene Glycol (Miralax) 17 gm DAILYPRN PRN GT Constipation 02/03/17 16:07 03/03/17 10:44 Ranitidine HCl 150 mg 150 mg Q12HR GT 02/06/17 21:00 03/08/17 20:59 Sodium Chloride (Sodium Chloride 1000ml bag) 1,000 ml @ 50 mls/hr Q20H IV 02/02/17 16:15 03/04/17 16:14 02/10/17 03:10 Tamsulosin HCl (Flomax) 0.4 mg BEDTIME GT 02/03/17 16:07 03/03/17 20:59 02/05/17 20:32 VALERIE WASHINGTON Feb 10, 2017 11:18
--- NOTE | 2017-02-10 11:49 | Endoscopy Procedure Note ---
Endoscopy Procedure Note Indication for Procedure: dysphagia Procedures Performed: EGD, PEG Operative Findings/Diagnosis: same Specimen: none Pt Tolerated Procedure Well: Yes Estimated Blood Loss: none Anesthesiologist: lino Anesthesia: MAC Implant(s) used?: No 50 yrs or older w/o bx or poly: Not Applicable 10yrs. F/U not recommended: Not Applicable CIARAN NARAYAN Feb 10, 2017 11:49
[2017-02-10 12:00] VITALS: BP 110/67
--- NOTE | 2017-02-10 12:00 | Anethesia Preoperative Eval ---
Anesthesia Pre-op PMH/ROS General Date of Evaluation: Feb 10, 2017 Time of Evaluation: 11:15 Anesthesiologist: nakul ASA Score: ASA 3 Mallampati Score Class I : Soft palate, uvula, fauces, pillars visible Class II: Soft palate, uvula, fauces visible Class III: Soft palate, base of uvula visible Class IV: Only hard plate visible Mallampati Classification: Class III Surgeon: matt Diagnosis: failure to thrive Surgical Procedure: EGD/Peg Placement Anesthesia History: none Family History: no anesthesia problems Allergies: Coded Allergies: No Known Allergies (Unverified , 08/09/13) Past Medical History Cardiovascular: Reports: HTN Pulmonary: Reports: other - chronic resp failure Gastrointestinal/Genitourinary: Reports: other - CHENTE Neurologic/Psychiatric: Denies: CVA, TIA, dementia, depression/anxiety, other Endocrine: Reports: DM HEENT: Denies: MECHOOPDA (L), MECHOOPDA (R), cataract (L), cataract (R), glaucoma, other Hematology/Immune: Denies: DVT, anemia, bleeding disorder, other Musculoskeletal/Integumentary: Denies: DDD, DJD, OA, RA, edema, other Other: obesity PMH Narrative: sepsis; Anesthesia Pre-op Phys. Exam Physician Exam Last Vital Signs Date Time Temp Pulse Resp B/P Pulse Ox O2 Delivery O2 Flow Rate FiO2 02/10/17 11:15 82 16 99 Mechanical Ventilator 35 02/10/17 08:23 132/75 02/10/17 08:00 97.9 02/08/17 04:00 10.0 Constitutional: NAD Neurologic: CN 2-12 intact Cardiovascular: other - ST Respiratory: CTA, other - trached Gastrointestinal: S/NT/ND Airway Exam Mallampati Score: Class III MO: limited ROM: limited Dentures: no lower, no upper Anesthesia Pre-op A/P Labs Hematology Test 02/10/17 03:42 White Blood Count 10.5 K/UL (4.8-10.8) Red Blood Count 3.39 M/UL (4.70-6.10) L Hemoglobin 8.9 G/DL (14.2-18.0) L Hematocrit 29.4 % (42.0-52.0) L Mean Corpuscular Volume 87 FL (80-99) Mean Corpuscular Hemoglobin 26.3 PG (27.0-31.0) L Mean Corpuscular Hemoglobin Concent 30.4 G/DL (32.0-36.0) L Red Cell Distribution Width 16.1 % (11.6-14.8) H Platelet Count 288 K/UL (150-450) Mean Platelet Volume 6.1 FL (6.5-10.1) L Neutrophils (%) (Auto) 66.8 % (45.0-75.0) Lymphocytes (%) (Auto) 16.3 % (20.0-45.0) L Monocytes (%) (Auto) 12.0 % (1.0-10.0) H Eosinophils (%) (Auto) 3.3 % (0.0-3.0) H Basophils (%) (Auto) 1.6 % (0.0-2.0) Coagulation Test 02/10/17 03:42 Prothrombin Time 11.2 SEC (9.30-11.50) Prothromb Time International Ratio 1.1 (0.9-1.1) Activated Partial Thromboplast Time 30 SEC (23-33) Chemistry Test 02/10/17 03:42 Sodium Level 136 mEQ/L (135-145) Potassium Level 3.9 mEQ/L (3.4-4.9) Chloride Level 94 mEQ/L (98-107) L Carbon Dioxide Level 28 mEQ/L (20-30) Anion Gap 14 (5-15) Blood Urea Nitrogen 4 mg/dL (7-23) L Creatinine 1.0 mg/dL (0.7-1.2) Estimat Glomerular Filtration Rate > 60 mL/min (>60) Glucose Level 70 mg/dL (74-106) L Calcium Level 9.1 mg/dL (8.6-10.2) Total Bilirubin 0.4 mg/dL (0.0-1.2) Aspartate Amino Transf (AST/SGOT) 19 U/L (5-40) Alanine Aminotransferase (ALT/SGPT) 13 U/L (3-41) Alkaline Phosphatase 56 U/L (40-129) Total Protein 6.2 g/dL (6.6-8.7) L Albumin 2.5 g/dL (3.5-5.2) L Globulin 3.7 g/dL Albumin/Globulin Ratio 0.6 (1.0-2.7) L Studies Pre-op Studies: EKG - ST Risk Assessment & Plan Plan: mac Pre-Antibiotics Drug: zosyn Given Within 1 Hr of Incision: Yes Time Given: 08:00 JORGE ESCOBEDO CRNA Feb 10, 2017 12:00
--- NOTE | 2017-02-10 12:02 | Immediate Post-Op Evaluation ---
Immediate Post-Op Evalulation Immediate Post-Op Evalulation Procedure: peg placement Date of Evaluation: Feb 10, 2017 Time of Evaluation: 11:40 IV Fluids: 150 Blood Pressure Systolic: 119 Blood Pressure Diastolic: 63 Pulse Rate: 75 Respiratory Rate: 16 O2 Sat by Pulse Oximetry: 99 Nausea: No Vomiting: No Complications none Patient Status: awake, patent, ventilated - see anesthesia note Drug: zosyn Given Within 1 Hr of Incision: Yes Time Given: 08:00 JORGE ESCOBEDO CRNA Feb 10, 2017 12:02
--- NOTE | 2017-02-10 12:14 | 48 Hour Post Anesthesia Eval ---
Post Anesthesia Evaluation Procedure: peg placement Date of Evaluation: Feb 10, 2017 Time of Evaluation: 12:13 Blood Pressure Systolic: 115 0: 75 Pulse Rate: 100 Respiratory Rate: 16 O2 Sat by Pulse Oximetry: 99 Airway: other Nausea: No Vomiting: No Hydration Status: adequate - mechanically faded / see vent settings Mental Status/LOC: patient returned to baseline Follow-up care needed: N/A JORGE ESCOBEDO CRNA Feb 10, 2017 12:14
[2017-02-10 16:00] VITALS: BP 132/74
--- NOTE | 2017-02-10 18:20 | Infectious Diseases Prog Note ---
Assessment/Plan Assessment/Plan A: The patient is a 66-year-old male with Sepsis, SP Pneumonia, Asp improving Scx:PSA leukocytosis, SP SP PEG 02/10 Chronic respiratory failure. Hypertension. Asthma. COPD. Diabetes. SP trach a PLAN: continue the patient on Zosyn d# 8 / 14 ( 02/07 Ps Levaquin day # 7 / ) ( 02/03 SP Teflaro d/3 3 ) Monitor CBC. Monitor BMP. Monitor chest x-ray. Subjective Constitutional: Denies: anorexia, chills, drenching sweats, fatigue, fever, no symptoms, other Allergies: Coded Allergies: No Known Allergies (Unverified , 08/09/13) Subjective on vent Objective Vital Signs Last 24 Hour Vital Signs Date Time Temp Pulse Resp B/P Pulse Ox O2 Delivery O2 Flow Rate FiO2 02/10/17 17:19 84 16 35 02/10/17 16:04 78 02/10/17 16:00 98.4 81 16 132/74 92 Mechanical Ventilator 35 02/10/17 16:00 35 02/10/17 15:21 80 16 35 02/10/17 13:02 84 16 35 02/10/17 12:14 100 16 99 02/10/17 12:02 75 16 99 02/10/17 12:00 35 02/10/17 12:00 97.9 93 16 110/67 99 Mechanical Ventilator 35 02/10/17 11:21 76 02/10/17 11:15 82 16 99 Mechanical Ventilator 35 02/10/17 11:11 82 16 35 02/10/17 09:25 77 16 35 02/10/17 08:23 78 132/75 02/10/17 08:21 68 02/10/17 08:00 35 02/10/17 08:00 97.9 65 16 113/64 94 Mechanical Ventilator 02/10/17 07:50 75 16 35 02/10/17 05:08 78 16 35 02/10/17 05:08 78 16 99 Mechanical Ventilator 35 02/10/17 04:29 97.2 71 17 132/75 96 Mechanical Ventilator 02/10/17 04:00 35 02/10/17 03:50 67 02/10/17 03:23 75 16 35 02/10/17 01:00 70 16 35 02/10/17 00:33 98.1 75 18 130/70 Mechanical Ventilator 02/10/17 00:00 35 02/09/17 23:41 77 02/09/17 23:30 77 16 35 02/09/17 21:04 87 16 35 02/09/17 21:00 87 127/75 02/09/17 20:12 99.5 80 17 127/75 98 Trach Collar 02/09/17 20:00 35 02/09/17 19:57 86 16 98 Mechanical Ventilator 02/09/17 19:46 84 16 96 Mechanical Ventilator 35 02/09/17 19:40 85 02/09/17 19:30 84 16 35 Height (Feet): 6 Weight (Pounds): 220 HEENT: anicteric Respiratory/Chest: no respiratory distress Cardiovascular: regularly irregular Abdomen: no organomegaly Laboratory Tests Test 02/10/17 03:42 White Blood Count 10.5 K/UL (4.8-10.8) Red Blood Count 3.39 M/UL (4.70-6.10) L Hemoglobin 8.9 G/DL (14.2-18.0) L Hematocrit 29.4 % (42.0-52.0) L Mean Corpuscular Volume 87 FL (80-99) Mean Corpuscular Hemoglobin 26.3 PG (27.0-31.0) L Mean Corpuscular Hemoglobin Concent 30.4 G/DL (32.0-36.0) L Red Cell Distribution Width 16.1 % (11.6-14.8) H Platelet Count 288 K/UL (150-450) Mean Platelet Volume 6.1 FL (6.5-10.1) L Neutrophils (%) (Auto) 66.8 % (45.0-75.0) Lymphocytes (%) (Auto) 16.3 % (20.0-45.0) L Monocytes (%) (Auto) 12.0 % (1.0-10.0) H Eosinophils (%) (Auto) 3.3 % (0.0-3.0) H Basophils (%) (Auto) 1.6 % (0.0-2.0) Prothrombin Time 11.2 SEC (9.30-11.50) Prothromb Time International Ratio 1.1 (0.9-1.1) Activated Partial Thromboplast Time 30 SEC (23-33) Sodium Level 136 mEQ/L (135-145) Potassium Level 3.9 mEQ/L (3.4-4.9) Chloride Level 94 mEQ/L (98-107) L Carbon Dioxide Level 28 mEQ/L (20-30) Anion Gap 14 (5-15) Blood Urea Nitrogen 4 mg/dL (7-23) L Creatinine 1.0 mg/dL (0.7-1.2) Estimat Glomerular Filtration Rate > 60 mL/min (>60) Glucose Level 70 mg/dL (74-106) L Calcium Level 9.1 mg/dL (8.6-10.2) Total Bilirubin 0.4 mg/dL (0.0-1.2) Aspartate Amino Transf (AST/SGOT) 19 U/L (5-40) Alanine Aminotransferase (ALT/SGPT) 13 U/L (3-41) Alkaline Phosphatase 56 U/L (40-129) Total Protein 6.2 g/dL (6.6-8.7) L Albumin 2.5 g/dL (3.5-5.2) L Globulin 3.7 g/dL Albumin/Globulin Ratio 0.6 (1.0-2.7) L Current Medications Medications (Trade) Dose Ordered Sig/Beto Route PRN Reason Start Time Stop Time Status Last Admin Dose Admin Acetaminophen (Tylenol) 650 mg Q4H PRN ORAL FEVER 02/01/17 10:45 03/03/17 10:44 02/06/17 10:04 Albuterol/ Ipratropium (DuoNeb 0.5-3(2.5)mg/3ml) 3 ml EVERY 4 HOURS PRN INH Shortness of Breath 02/07/17 09:00 02/12/17 08:59 02/10/17 11:14 Dextrose STAT PRN IV Hypoglycemia 02/01/17 10:45 03/03/17 10:44 Heparin Sodium (Porcine) (Heparin 5000 units/ml) 5,000 units EVERY 12 HOURS SUBQ 02/01/17 21:00 03/03/17 20:59 02/09/17 09:49 Lorazepam (Ativan 2mg/ml 1ml) 2 mg Q2H PRN IV For Anxiety 02/08/17 11:30 02/15/17 11:29 Metoprolol Tartrate (Lopressor) 25 mg EVERY 12 HOURS GT 02/03/17 16:07 03/03/17 20:59 02/06/17 10:04 Morphine Sulfate (Morphine Sulfate) 4 mg Q4H PRN IVP Severe Breakthru Pain (>7) 02/08/17 11:30 02/15/17 11:29 02/10/17 14:31 Ondansetron HCl (Zofran) 4 mg Q6H PRN IVP Nausea & Vomiting 02/01/17 10:45 03/03/17 10:44 02/10/17 12:34 Piperacillin Sod/ Tazobactam Sod/ Dextrose (Zosyn/D5W) 110 ml @ 27.5 mls/hr Q8H IVPB 02/07/17 09:00 02/14/17 08:59 02/10/17 16:00 Polyethylene Glycol (Miralax) 17 gm DAILYPRN PRN GT Constipation 02/03/17 16:07 03/03/17 10:44 Ranitidine HCl 150 mg 150 mg Q12HR GT 02/06/17 21:00 03/08/17 20:59 Sodium Chloride (Sodium Chloride 1000ml bag) 1,000 ml @ 50 mls/hr Q20H IV 02/02/17 16:15 03/04/17 16:14 02/10/17 03:10 Tamsulosin HCl (Flomax) 0.4 mg BEDTIME GT 02/03/17 16:07 03/03/17 20:59 02/05/17 20:32 SYLVESTER RODGERS M.D. Feb 10, 2017 18:20
--- NOTE | 2017-02-10 19:58 | Procedure Note ---
DATE OF PROCEDURE: 02/10/2017 SURGEON: Chris Hsu M.D. PROCEDURE: Upper endoscopy with percutaneous endoscopic gastrostomy placement. ANESTHESIA: Per CHRIS, Carmelina. INSTRUMENT: Olympus adult flexible upper endoscope. INDICATION: Dysphagia. REASON FOR PROCEDURE: The procedure, risks, benefits, and possible consequences, including hemorrhage, aspiration, perforation and infection, and alternative treatments, were explained to the patient/legal guardian by Dr. Chris Hsu and the patient/legal guardian understood and accepted these risks. DESCRIPTION OF PROCEDURE: After informed consent was obtained and the patient was adequately sedated, first Olympus upper endoscope was advanced from mouth into the second portion of the duodenum and retroflexion was performed in the stomach. Then under endoscopic guidance and under sterile condition, a 20-Kittitian pull type of G-tube was successfully placed in the epigastric area. The distance from the tip of the tube to the skin was about 2.5 cm in size. The patient tolerated the procedure well without any complication. SUMMARY OF FINDINGS: Status post successful percutaneous endoscopic gastrostomy placement. RECOMMENDATIONS: 1. Abdominal binder. 2. Elevate the head of the bed at all times. 3. G-tube flush. 4. G-tube care. 5. Plan to start tube feeding later today. Chris Hsu M.D. DR: BENY JOB#: [id number] CC:
[2017-02-10 20:00] VITALS: BP 119/75
[2017-02-10] MEDS: Tamsulosin 0.4mg cap GT SCH (20:20)
[2017-02-11] VITALS (7 sets, daily range): BP systolic 117–138; BP diastolic 67–80
[2017-02-11] MEDS: Piperacillin/Tazobactam 3.375 GM in D5W 110 ML IVPB SCH ×3 (00:05→16:59)
[2017-02-11] MEDS: Morphine Sulfate 4mg/ml Inj IVP PRN ×3 (02:48→20:30)
[2017-02-11 05:43] LABS: BASOPHILS % (AUTO) 1.5 % (0.0-2.0); LYMPHOCYTES % (AUTO) 14.7 % (20.0-45.0); MEAN CORPUSCULAR HEMOGLOBIN 25.8 PG (27.0-31.0); MEAN CORPUSCULAR HGB CONC 29.9 G/DL (32.0-36.0); MEAN CORPUSCULAR VOLUME 86 FL (80-99); MONOCYTES % (AUTO) 13.4 % (1.0-10.0); NEUTROPHILS % (AUTO) 67.5 % (45.0-75.0); PLATELET COUNT 279 K/UL (150-450); RED BLOOD COUNT 3.48 M/UL (4.70-6.10); WHITE BLOOD COUNT 10.9 K/UL (4.8-10.8)
[2017-02-11 06:31] LABS: ALANINE AMINOTRANSFERASE 11 U/L (3-41); ALBUMIN/GLOBULIN RATIO 0.8 (1.0-2.7); ANION GAP 15 (5-15); ASPARTATE AMINO TRANSFERASE 18 U/L (5-40); CARBON DIOXIDE 30 mEQ/L (20-30); CHLORIDE 97 mEQ/L (98-107); CREATININE 1.1 mg/dL (0.7-1.2); GLOMERULAR FILTRATION RATE > 60 mL/min (>60); HEMOLYSIS 1; MAGNESIUM 1.8 mg/dL (1.7-2.5); PHOSPHORUS 2.8 mg/dL (2.5-4.8); POTASSIUM 3.8 mEQ/L (3.4-4.9); SODIUM 142 mEQ/L (135-145)
[2017-02-11] MEDS: Heparin 5000 units/ml inj SUBQ SCH ×2 (08:18→20:31)
[2017-02-11] MEDS: Metoprolol 25mg tab GT SCH ×2 (08:20→20:31)
--- NOTE | 2017-02-11 08:42 | Pulmonology Progress Note ---
Assessment/Plan Problems: (1) Acute and chronic respiratory failure ([id number]) (2) Sepsis (3) CHENTE (acute kidney injury) (4) Diabetes mellitus (5) Hypertension Assessment/Plan tolerated feeding tube yesterday cant' weaned yet didn't tolerate weaning continue abx check cultures dc planning Subjective ROS Limited/Unobtainable: No Constitutional: Reports: no symptoms Respiratory: Reports: no symptoms Allergies: Coded Allergies: No Known Allergies (Unverified , 08/09/13) Objective Last 24 Hour Vital Signs Date Time Temp Pulse Resp B/P Pulse Ox O2 Delivery O2 Flow Rate FiO2 02/11/17 08:20 82 129/77 02/11/17 07:20 74 16 35 02/11/17 04:57 73 16 35 02/11/17 04:00 35 02/11/17 04:00 97.7 74 16 120/67 94 Mechanical Ventilator 35 02/11/17 03:46 74 16 35 02/11/17 03:38 74 02/11/17 01:05 76 16 35 02/11/17 00:49 99.7 73 16 117/69 94 Mechanical Ventilator 35 02/11/17 00:00 35 02/10/17 23:51 76 02/10/17 23:28 80 16 35 02/10/17 21:30 82 16 98 Mechanical Ventilator 02/10/17 21:15 81 16 35 02/10/17 21:15 80 16 97 Mechanical Ventilator 35 02/10/17 20:19 81 119/75 02/10/17 20:16 87 02/10/17 20:00 99.1 81 16 119/75 94 Mechanical Ventilator 35 02/10/17 20:00 35 02/10/17 19:26 92 16 35 02/10/17 17:19 84 16 35 02/10/17 16:04 78 02/10/17 16:00 98.4 81 16 132/74 92 Mechanical Ventilator 35 02/10/17 16:00 35 02/10/17 15:21 80 16 35 02/10/17 13:02 84 16 35 02/10/17 12:14 100 16 99 02/10/17 12:02 75 16 99 02/10/17 12:00 35 02/10/17 12:00 97.9 93 16 110/67 99 Mechanical Ventilator 35 4/21/17 11:21 76 02/10/17 11:15 82 16 99 Mechanical Ventilator 35 02/10/17 11:11 82 16 35 02/10/17 09:25 77 16 35 Intake and Output 02/10/17 02/11/17 19:00 07:00 Intake Total 802.5000 ml 997.5 ml Output Total 800 ml 400 ml Balance 2.5000 ml 597.5 ml Intake Free Water 100 ml IV Total 792.5000 ml 637.5 ml Tube Feeding 10 ml 210 ml Other 50 ml Output Urine Total 800 ml 400 ml Objective General Appearance: WD/WN HEENT: normocephalic, atraumatic, status post trach Respiratory/Chest: chest wall non-tender, lungs clear Genitourinary: normal external genitalia Extremities: no cyanosis Neurologic/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: 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 normal, oriented x 3 Laboratory Tests 02/11/17 04:00: White Blood Count 10.9H, Red Blood Count 3.48L, Hemoglobin 9.0L, Hematocrit 30.0L, Mean Corpuscular Volume 86, Mean Corpuscular Hemoglobin 25.8L, Mean Corpuscular Hemoglobin Concent 29.9L, Red Cell Distribution Width 16.0H, Platelet Count 279, Mean Platelet Volume 6.0L, Neutrophils (%) (Auto) 67.5, Lymphocytes (%) (Auto) 14.7L, Monocytes (%) (Auto) 13.4H, Eosinophils (%) (Auto ) 3.0, Basophils (%) (Auto) 1.5, Sodium Level 142, Potassium Level 3.8, Chloride Level 97L, Carbon Dioxide Level 30, Anion Gap 15, Blood Urea Nitrogen 4L, Creatinine 1.1, Estimat Glomerular Filtration Rate > 60, Glucose Level 90, Calcium Level 9.0, Phosphorus Level 2.8, Magnesium Level 1.8, Total Bilirubin 0.4, Aspartate Amino Transf (AST/SGOT) 18, Alanine Aminotransferase (ALT/SGPT) 11, Alkaline Phosphatase 50, Total Protein 6.0L, Albumin 2.7L, Globulin 3.3, Albumin/Globulin Ratio 0.8L Current Medications Medications (Trade) Dose Ordered Sig/Beto Route PRN Reason Start Time Stop Time Status Last Admin Dose Admin Acetaminophen (Tylenol) 650 mg Q4H PRN ORAL FEVER 02/01/17 10:45 03/03/17 10:44 02/06/17 10:04 Albuterol/ Ipratropium (DuoNeb 0.5-3(2.5)mg/3ml) 3 ml EVERY 4 HOURS PRN INH Shortness of Breath 02/07/17 09:00 02/12/17 08:59 02/10/17 21:16 Dextrose STAT PRN IV Hypoglycemia 02/01/17 10:45 03/03/17 10:44 Heparin Sodium (Porcine) (Heparin 5000 units/ml) 5,000 units EVERY 12 HOURS SUBQ 02/01/17 21:00 03/03/17 20:59 02/11/17 08:18 Lorazepam (Ativan 2mg/ml 1ml) 2 mg Q2H PRN IV For Anxiety 02/08/17 11:30 02/15/17 11:29 Metoprolol Tartrate (Lopressor) 25 mg EVERY 12 HOURS GT 02/03/17 16:07 03/03/17 20:59 02/11/17 08:20 Morphine Sulfate (Morphine Sulfate) 4 mg Q4H PRN IVP Severe Breakthru Pain (>7) 02/08/17 11:30 02/15/17 11:29 02/11/17 02:48 Ondansetron HCl (Zofran) 4 mg Q6H PRN IVP Nausea & Vomiting 02/01/17 10:45 03/03/17 10:44 02/10/17 12:34 Piperacillin Sod/ Tazobactam Sod/ Dextrose (Zosyn/D5W) 110 ml @ 27.5 mls/hr Q8H IVPB 02/07/17 09:00 02/14/17 08:59 02/11/17 08:20 Polyethylene Glycol (Miralax) 17 gm DAILYPRN PRN GT Constipation 02/03/17 16:07 03/03/17 10:44 Ranitidine HCl 150 mg 150 mg Q12HR GT 02/06/17 21:00 03/08/17 20:59 02/11/17 08:16 Sodium Chloride (Sodium Chloride 1000ml bag) 1,000 ml @ 50 mls/hr Q20H IV 02/02/17 16:15 03/04/17 16:14 02/11/17 00:04 Tamsulosin HCl (Flomax) 0.4 mg BEDTIME GT 02/03/17 16:07 03/03/17 20:59 02/10/17 20:20 VALERIE WASHINGTON Feb 11, 2017 08:42
--- NOTE | 2017-02-11 09:31 | General Progress Note ---
Assessment/Plan Status: stable - from renal stand Assessment/Plan status: Acute renal failure- resolved Sepsis- resolving leukocytosis DM Respiratory failure RUQ pain Anemia Plan: Hydrate- monitor renal parameters- Keep BP and BS in check urine studies- Avoid nephrotoxics DC planning? Subjective ROS Limited/Unobtainable: No Allergies: Coded Allergies: No Known Allergies (Unverified , 08/09/13) Objective Last 24 Hour Vital Signs Date Time Temp Pulse Resp B/P Pulse Ox O2 Delivery O2 Flow Rate FiO2 02/11/17 09:07 65 16 35 02/11/17 08:20 82 129/77 02/11/17 08:00 99.3 82 16 129/77 96 Mechanical Ventilator 35 02/11/17 07:20 74 16 35 02/11/17 04:57 73 16 35 02/11/17 04:00 35 02/11/17 04:00 97.7 74 16 120/67 94 Mechanical Ventilator 35 02/11/17 03:46 74 16 35 02/11/17 03:38 74 02/11/17 01:05 76 16 35 02/11/17 00:49 99.7 73 16 117/69 94 Mechanical Ventilator 35 02/11/17 00:00 35 02/10/17 23:51 76 02/10/17 23:28 80 16 35 02/10/17 21:30 82 16 98 Mechanical Ventilator 02/10/17 21:15 81 16 35 02/10/17 21:15 80 16 97 Mechanical Ventilator 35 02/10/17 20:19 81 119/75 02/10/17 20:16 87 02/10/17 20:00 99.1 81 16 119/75 94 Mechanical Ventilator 35 02/10/17 20:00 35 02/10/17 19:26 92 16 35 02/10/17 17:19 84 16 35 02/10/17 16:04 78 02/10/17 16:00 98.4 81 16 132/74 92 Mechanical Ventilator 35 02/10/17 16:00 35 02/10/17 15:21 80 16 35 02/10/17 13:02 84 16 35 02/10/17 12:14 100 16 99 02/10/17 12:02 75 16 99 02/10/17 12:00 35 02/10/17 12:00 97.9 93 16 110/67 99 Mechanical Ventilator 35 02/10/17 11:21 76 02/10/17 11:15 82 16 99 Mechanical Ventilator 35 02/10/17 11:11 82 16 35 Intake and Output 02/10/17 02/11/17 19:00 07:00 Intake Total 802.5000 ml 997.5 ml Output Total 800 ml 400 ml Balance 2.5000 ml 597.5 ml Intake Free Water 100 ml IV Total 792.5000 ml 637.5 ml Tube Feeding 10 ml 210 ml Other 50 ml Output Urine Total 800 ml 400 ml Laboratory Tests 02/11/17 04:00: White Blood Count 10.9H, Red Blood Count 3.48L, Hemoglobin 9.0L, Hematocrit 30.0L, Mean Corpuscular Volume 86, Mean Corpuscular Hemoglobin 25.8L, Mean Corpuscular Hemoglobin Concent 29.9L, Red Cell Distribution Width 16.0H, Platelet Count 279, Mean Platelet Volume 6.0L, Neutrophils (%) (Auto) 67.5, Lymphocytes (%) (Auto) 14.7L, Monocytes (%) (Auto) 13.4H, Eosinophils (%) (Auto ) 3.0, Basophils (%) (Auto) 1.5, Sodium Level 142, Potassium Level 3.8, Chloride Level 97L, Carbon Dioxide Level 30, Anion Gap 15, Blood Urea Nitrogen 4L, Creatinine 1.1, Estimat Glomerular Filtration Rate > 60, Glucose Level 90, Calcium Level 9.0, Phosphorus Level 2.8, Magnesium Level 1.8, Total Bilirubin 0.4, Aspartate Amino Transf (AST/SGOT) 18, Alanine Aminotransferase (ALT/SGPT) 11, Alkaline Phosphatase 50, Total Protein 6.0L, Albumin 2.7L, Globulin 3.3, Albumin/Globulin Ratio 0.8L Height (Feet): 6 Weight (Pounds): 220 General Appearance: no apparent distress Respiratory/Chest: decreased breath sounds Abdomen: other - PEG+ Objective PE not changed SAMANTHA ALLRED Feb 11, 2017 09:30
[2017-02-11] MEDS: DuoNeb 0.5-3(2.5)mg/3ml neb INH PRN ×3 (10:27→19:16)
--- NOTE | 2017-02-11 12:32 | General Progress Note ---
Assessment/Plan Problem List: (1) G tube feedings ICD Codes: Z93.1 - Gastrostomy status SNOMED: 601815195, 680310541 (2) Constipation ICD Codes: K59.00 - Constipation, unspecified SNOMED: 84039825 (3) COPD exacerbation ICD Codes: J44.1 - Chronic obstructive pulmonary disease with (acute) exacerbation SNOMED: 816687294 (4) Iron (Fe) deficiency anemia ICD Codes: D50.9 - Iron deficiency anemia, unspecified SNOMED: 58785275 (5) Diabetes mellitus ICD Codes: E11.9 - Type 2 diabetes mellitus without complications SNOMED: 83856411 Assessment/Plan GTF GT care and flush monitor labs dc planning per primary team Subjective ROS Limited/Unobtainable: No Allergies: Coded Allergies: No Known Allergies (Unverified , 08/09/13) Objective Last 24 Hour Vital Signs Date Time Temp Pulse Resp B/P Pulse Ox O2 Delivery O2 Flow Rate FiO2 02/11/17 11:59 99.1 66 16 128/80 100 Mechanical Ventilator 50 02/11/17 10:28 71 16 99 Mechanical Ventilator 02/11/17 10:28 72 16 35 02/11/17 10:10 71 16 97 Mechanical Ventilator 50 02/11/17 09:07 65 16 35 02/11/17 08:20 82 129/77 02/11/17 08:00 99.3 82 16 129/77 96 Mechanical Ventilator 35 02/11/17 08:00 72 02/11/17 08:00 35 02/11/17 07:20 74 16 35 02/11/17 04:57 73 16 35 02/11/17 04:00 35 02/11/17 04:00 97.7 74 16 120/67 94 Mechanical Ventilator 35 02/11/17 03:46 74 16 35 02/11/17 03:38 74 02/11/17 01:05 76 16 35 02/11/17 00:49 99.7 73 16 117/69 94 Mechanical Ventilator 35 02/11/17 00:00 35 02/10/17 23:51 76 02/10/17 23:28 80 16 35 02/10/17 21:30 82 16 98 Mechanical Ventilator 02/10/17 21:15 81 16 35 02/10/17 21:15 80 16 97 Mechanical Ventilator 35 02/10/17 20:19 81 119/75 02/10/17 20:16 87 02/10/17 20:00 99.1 81 16 119/75 94 Mechanical Ventilator 35 02/10/17 20:00 35 02/10/17 19:26 92 16 35 02/10/17 17:19 84 16 35 02/10/17 16:04 78 02/10/17 16:00 98.4 81 16 132/74 92 Mechanical Ventilator 35 02/10/17 16:00 35 02/10/17 15:21 80 16 35 02/10/17 13:02 84 16 35 Intake and Output 02/10/17 02/11/17 19:00 07:00 Intake Total 802.5000 ml 997.5 ml Output Total 800 ml 400 ml Balance 2.5000 ml 597.5 ml Intake Free Water 100 ml IV Total 792.5000 ml 637.5 ml Tube Feeding 10 ml 210 ml Other 50 ml Output Urine Total 800 ml 400 ml Laboratory Tests 02/11/17 04:00: White Blood Count 10.9H, Red Blood Count 3.48L, Hemoglobin 9.0L, Hematocrit 30.0L, Mean Corpuscular Volume 86, Mean Corpuscular Hemoglobin 25.8L, Mean Corpuscular Hemoglobin Concent 29.9L, Red Cell Distribution Width 16.0H, Platelet Count 279, Mean Platelet Volume 6.0L, Neutrophils (%) (Auto) 67.5, Lymphocytes (%) (Auto) 14.7L, Monocytes (%) (Auto) 13.4H, Eosinophils (%) (Auto ) 3.0, Basophils (%) (Auto) 1.5, Sodium Level 142, Potassium Level 3.8, Chloride Level 97L, Carbon Dioxide Level 30, Anion Gap 15, Blood Urea Nitrogen 4L, Creatinine 1.1, Estimat Glomerular Filtration Rate > 60, Glucose Level 90, Calcium Level 9.0, Phosphorus Level 2.8, Magnesium Level 1.8, Total Bilirubin 0.4, Aspartate Amino Transf (AST/SGOT) 18, Alanine Aminotransferase (ALT/SGPT) 11, Alkaline Phosphatase 50, Total Protein 6.0L, Albumin 2.7L, Globulin 3.3, Albumin/Globulin Ratio 0.8L Height (Feet): 6 Weight (Pounds): 220 General Appearance: no apparent distress EENT: normal ENT inspection Neck: supple Cardiovascular: normal rate Respiratory/Chest: decreased breath sounds Abdomen: normal bowel sounds, non tender, soft Extremities: non-tender CIARAN NARAYAN Feb 11, 2017 12:32
[2017-02-11] MEDS: Tamsulosin 0.4mg cap GT SCH (20:30)
[2017-02-11] MEDS: Miralax 17gm pkt GT PRN (20:32)
[2017-02-12 00:40] VITALS: BP 140/65
[2017-02-12] MEDS: Piperacillin/Tazobactam 3.375 GM in D5W 110 ML IVPB SCH ×3 (01:14→16:29)
[2017-02-12 04:00] VITALS: BP 155/86
[2017-02-12] MEDS: DuoNeb 0.5-3(2.5)mg/3ml neb INH PRN (04:50)
[2017-02-12] MEDS: Morphine Sulfate 4mg/ml Inj IVP PRN ×2 (05:09→12:34)
[2017-02-12 07:57] VITALS: BP 129/67
--- NOTE | 2017-02-12 08:37 | Infectious Diseases Prog Note ---
Assessment/Plan Assessment/Plan A: Sepsis Pneumonia with pseudomonas COPD VDRF DM Inguinal hernia VRE colonization GT status P; Continue Zosyn Subjective ROS Limited/Unobtainable: Yes Allergies: Coded Allergies: No Known Allergies (Unverified , 08/09/13) Objective Vital Signs Last 24 Hour Vital Signs Date Time Temp Pulse Resp B/P Pulse Ox O2 Delivery O2 Flow Rate FiO2 02/12/17 08:04 94 02/12/17 08:04 35 02/12/17 07:57 98.6 94 18 129/67 99 Mechanical Ventilator 35 02/12/17 07:27 99 16 35 02/12/17 05:39 98.4 02/12/17 05:00 114 16 100 Mechanical Ventilator 35 02/12/17 04:50 104 19 97 Mechanical Ventilator 35 02/12/17 04:41 89 16 35 02/12/17 04:00 35 02/12/17 04:00 99.0 105 16 155/86 99 Mechanical Ventilator 35 02/12/17 03:47 77 02/12/17 03:05 69 16 35 02/12/17 00:43 77 16 35 02/12/17 00:40 98.4 79 16 140/65 94 Mechanical Ventilator 35.0 02/12/17 00:00 35 02/11/17 23:46 77 02/11/17 22:33 83 16 35 02/11/17 20:40 88 16 35 02/11/17 20:39 35 02/11/17 20:31 84 136/72 02/11/17 20:00 98.8 91 16 137/78 98 Mechanical Ventilator 50 02/11/17 20:00 81 02/11/17 19:23 72 16 99 Mechanical Ventilator 02/11/17 19:15 71 16 99 Mechanical Ventilator 50 02/11/17 19:14 71 16 50 02/11/17 17:20 72 18 35 02/11/17 16:00 78 02/11/17 16:00 35 02/11/17 15:58 97.9 72 16 138/76 99 Mechanical Ventilator 50 02/11/17 15:24 66 16 35 02/11/17 14:53 76 16 99 Mechanical Ventilator 02/11/17 14:44 75 16 98 Mechanical Ventilator 50 02/11/17 12:00 68 02/11/17 12:00 35 02/11/17 11:59 99.1 66 16 128/80 100 Mechanical Ventilator 50 02/11/17 10:28 71 16 99 Mechanical Ventilator 02/11/17 10:28 72 16 35 02/11/17 10:10 71 16 97 Mechanical Ventilator 50 02/11/17 09:07 65 16 35 Height (Feet): 6 Weight (Pounds): 220 HEENT: status post trach Respiratory/Chest: decreased breath sounds, other - onventilator Cardiovascular: normal rate Abdomen: soft, non tender, other - GT feeding Extremities: other - mild edema of hands Current Medications Medications (Trade) Dose Ordered Sig/Beto Route PRN Reason Start Time Stop Time Status Last Admin Dose Admin Acetaminophen (Tylenol) 650 mg Q4H PRN ORAL FEVER 02/01/17 10:45 03/03/17 10:44 02/06/17 10:04 Albuterol/ Ipratropium (DuoNeb 0.5-3(2.5)mg/3ml) 3 ml EVERY 4 HOURS PRN INH Shortness of Breath 02/07/17 09:00 02/12/17 08:59 02/12/17 04:50 Dextrose (Dextrose 50%) STAT PRN IV Hypoglycemia 02/01/17 10:45 03/03/17 10:44 Heparin Sodium (Porcine) (Heparin 5000 units/ml) 5,000 units EVERY 12 HOURS SUBQ 02/01/17 21:00 03/03/17 20:59 02/11/17 20:31 Lorazepam (Ativan 2mg/ml 1ml) 2 mg Q2H PRN IV For Anxiety 02/08/17 11:30 02/15/17 11:29 Metoprolol Tartrate (Lopressor) 25 mg EVERY 12 HOURS GT 02/03/17 16:07 03/03/17 20:59 02/11/17 20:31 Morphine Sulfate (Morphine Sulfate) 4 mg Q4H PRN IVP Severe Breakthru Pain (>7) 02/08/17 11:30 02/15/17 11:29 02/12/17 05:09 Ondansetron HCl (Zofran) 4 mg Q6H PRN IVP Nausea & Vomiting 02/01/17 10:45 03/03/17 10:44 02/10/17 12:34 Piperacillin Sod/ Tazobactam Sod/ Dextrose (Zosyn/D5W) 110 ml @ 27.5 mls/hr Q8H IVPB 02/07/17 09:00 02/16/17 08:59 02/12/17 01:14 Polyethylene Glycol (Miralax) 17 gm DAILYPRN PRN GT Constipation 02/03/17 16:07 03/03/17 10:44 02/11/17 20:32 Ranitidine HCl 150 mg 150 mg Q12HR GT 02/06/17 21:00 03/08/17 20:59 02/11/17 20:30 Tamsulosin HCl (Flomax) 0.4 mg BEDTIME GT 02/03/17 16:07 03/03/17 20:59 02/11/17 20:30 GURPREET PATTON Feb 12, 2017 08:37
[2017-02-12] MEDS: Metoprolol 25mg tab GT SCH ×2 (09:09→20:58)
[2017-02-12] MEDS: Miralax 17gm pkt GT PRN (09:09)
[2017-02-12] MEDS: Heparin 5000 units/ml inj SUBQ SCH ×2 (09:10→20:59)
--- NOTE | 2017-02-12 10:39 | General Progress Note ---
Assessment/Plan Problem List: (1) G tube feedings ICD Codes: Z93.1 - Gastrostomy status SNOMED: 587973834, 355278951 (2) Constipation ICD Codes: K59.00 - Constipation, unspecified SNOMED: 08267830 (3) COPD exacerbation ICD Codes: J44.1 - Chronic obstructive pulmonary disease with (acute) exacerbation SNOMED: 746075038 (4) Iron (Fe) deficiency anemia ICD Codes: D50.9 - Iron deficiency anemia, unspecified SNOMED: 27712032 (5) Diabetes mellitus ICD Codes: E11.9 - Type 2 diabetes mellitus without complications SNOMED: 53203307 Assessment/Plan GTF GT care and flush monitor labs dc planning per primary team Subjective ROS Limited/Unobtainable: No Allergies: Coded Allergies: No Known Allergies (Unverified , 08/09/13) Objective Last 24 Hour Vital Signs Date Time Temp Pulse Resp B/P Pulse Ox O2 Delivery O2 Flow Rate FiO2 02/12/17 09:09 96 129/67 02/12/17 08:58 96 16 35 02/12/17 08:04 94 02/12/17 08:04 35 02/12/17 07:57 98.6 94 18 129/67 99 Mechanical Ventilator 35 02/12/17 07:27 99 16 35 02/12/17 05:39 98.4 02/12/17 05:00 114 16 100 Mechanical Ventilator 35 02/12/17 04:50 104 19 97 Mechanical Ventilator 35 02/12/17 04:41 89 16 35 02/12/17 04:00 35 02/12/17 04:00 99.0 105 16 155/86 99 Mechanical Ventilator 35 02/12/17 03:47 77 02/12/17 03:05 69 16 35 02/12/17 00:43 77 16 35 02/12/17 00:40 98.4 79 16 140/65 94 Mechanical Ventilator 35.0 02/12/17 00:00 35 02/11/17 23:46 77 02/11/17 22:33 83 16 35 02/11/17 20:40 88 16 35 02/11/17 20:39 35 02/11/17 20:31 84 136/72 02/11/17 20:00 98.8 91 16 137/78 98 Mechanical Ventilator 50 02/11/17 20:00 81 02/11/17 19:23 72 16 99 Mechanical Ventilator 02/11/17 19:15 71 16 99 Mechanical Ventilator 50 02/11/17 19:14 71 16 50 02/11/17 17:20 72 18 35 02/11/17 16:00 78 02/11/17 16:00 35 02/11/17 15:58 97.9 72 16 138/76 99 Mechanical Ventilator 50 02/11/17 15:24 66 16 35 02/11/17 14:53 76 16 99 Mechanical Ventilator 02/11/17 14:44 75 16 98 Mechanical Ventilator 50 02/11/17 12:00 68 02/11/17 12:00 35 02/11/17 11:59 99.1 66 16 128/80 100 Mechanical Ventilator 50 Intake and Output 02/11/17 02/12/17 19:00 07:00 Intake Total 1190 ml 910.0 ml Output Total 475 ml 1000 ml Balance 715 ml -90.0 ml Intake Free Water 200 ml 200 ml IV Total 450 ml 110.0 ml Tube Feeding 540 ml 600 ml Output Urine Total 475 ml 1000 ml # Bowel Movements 1 Height (Feet): 6 Weight (Pounds): 220 General Appearance: no apparent distress EENT: normal ENT inspection Respiratory/Chest: decreased breath sounds Abdomen: normal bowel sounds, non tender, soft Extremities: non-tender CIARAN NARAYAN Feb 12, 2017 10:39
[2017-02-12] MEDS: DuoNeb 0.5-3(2.5)mg/3ml neb HHN SCH ×4 (10:42→23:19)
--- NOTE | 2017-02-12 10:53 | General Progress Note ---
Assessment/Plan Status: stable - from renal stand Assessment/Plan status: Acute renal failure- resolved Sepsis- resolving leukocytosis DM Respiratory failure RUQ pain Anemia Plan: Hydrate- monitor renal parameters- Keep BP and BS in check urine studies- Avoid nephrotoxics DC planning? Subjective ROS Limited/Unobtainable: No Constitutional: Reports: malaise Allergies: Coded Allergies: No Known Allergies (Unverified , 08/09/13) Objective Last 24 Hour Vital Signs Date Time Temp Pulse Resp B/P Pulse Ox O2 Delivery O2 Flow Rate FiO2 02/12/17 10:42 97 16 35 02/12/17 10:42 77 16 97 Mechanical Ventilator 35 02/12/17 09:09 96 129/67 02/12/17 08:58 96 16 35 02/12/17 08:04 94 02/12/17 08:04 35 02/12/17 07:57 98.6 94 18 129/67 99 Mechanical Ventilator 35 02/12/17 07:27 99 16 35 02/12/17 05:39 98.4 02/12/17 05:00 114 16 100 Mechanical Ventilator 35 02/12/17 04:50 104 19 97 Mechanical Ventilator 35 02/12/17 04:41 89 16 35 02/12/17 04:00 35 02/12/17 04:00 99.0 105 16 155/86 99 Mechanical Ventilator 35 02/12/17 03:47 77 02/12/17 03:05 69 16 35 02/12/17 00:43 77 16 35 02/12/17 00:40 98.4 79 16 140/65 94 Mechanical Ventilator 35.0 02/12/17 00:00 35 02/11/17 23:46 77 02/11/17 22:33 83 16 35 02/11/17 20:40 88 16 35 02/11/17 20:39 35 02/11/17 20:31 84 136/72 02/11/17 20:00 98.8 91 16 137/78 98 Mechanical Ventilator 50 02/11/17 20:00 81 02/11/17 19:23 72 16 99 Mechanical Ventilator 02/11/17 19:15 71 16 99 Mechanical Ventilator 50 02/11/17 19:14 71 16 50 02/11/17 17:20 72 18 35 02/11/17 16:00 78 02/11/17 16:00 35 02/11/17 15:58 97.9 72 16 138/76 99 Mechanical Ventilator 50 02/11/17 15:24 66 16 35 02/11/17 14:53 76 16 99 Mechanical Ventilator 02/11/17 14:44 75 16 98 Mechanical Ventilator 50 02/11/17 12:00 68 02/11/17 12:00 35 02/11/17 11:59 99.1 66 16 128/80 100 Mechanical Ventilator 50 Intake and Output 02/11/17 02/12/17 19:00 07:00 Intake Total 1190 ml 910.0 ml Output Total 475 ml 1000 ml Balance 715 ml -90.0 ml Intake Free Water 200 ml 200 ml IV Total 450 ml 110.0 ml Tube Feeding 540 ml 600 ml Output Urine Total 475 ml 1000 ml # Bowel Movements 1 Height (Feet): 6 Weight (Pounds): 220 General Appearance: mild distress EENT: other - trach Respiratory/Chest: decreased breath sounds Abdomen: other - PEG Objective PE not changed SAMANTHA ALLRED Feb 12, 2017 10:53
[2017-02-12 12:00] VITALS: BP 125/71
[2017-02-12] MEDS ORDERED: NS 275ml ONE (14:00)
[2017-02-12 16:00] VITALS: BP 110/73
[2017-02-12] MEDS: LORazepam Inj 2mg/ml 1ml IV PRN (16:29)
--- NOTE | 2017-02-12 19:01 | Pulmonology Progress Note ---
Assessment/Plan Problems: (1) Acute and chronic respiratory failure ([id number]) (2) Sepsis (3) CHENTE (acute kidney injury) (4) Diabetes mellitus (5) Hypertension Assessment/Plan tolerated feeding tube yesterday cant' weaned yet on zosyn didn't tolerate weaning continue abx check cultures dc planning Subjective ROS Limited/Unobtainable: No Constitutional: Reports: no symptoms HEENT: Repors: no symptoms Respiratory: Reports: no symptoms Allergies: Coded Allergies: No Known Allergies (Unverified , 08/09/13) Objective Last 24 Hour Vital Signs Date Time Temp Pulse Resp B/P Pulse Ox O2 Delivery O2 Flow Rate FiO2 02/12/17 17:33 98.7 02/12/17 17:26 92 17 35 02/12/17 16:00 100.8 18 110/73 99 Mechanical Ventilator 35 02/12/17 15:49 78 02/12/17 15:49 35 02/12/17 15:46 90 17 100 Mechanical Ventilator 35 02/12/17 15:34 85 16 35 02/12/17 15:34 78 16 95 Mechanical Ventilator 35 02/12/17 12:57 78 16 35 02/12/17 12:00 97.5 88 18 125/71 99 Mechanical Ventilator 35 02/12/17 11:59 85 02/12/17 11:58 35 02/12/17 10:57 80 16 100 Mechanical Ventilator 35 02/12/17 10:42 97 16 35 02/12/17 10:42 77 16 97 Mechanical Ventilator 35 02/12/17 09:09 96 129/67 02/12/17 08:58 96 16 35 02/12/17 08:04 94 02/12/17 08:04 35 02/12/17 07:57 98.6 94 18 129/67 99 Mechanical Ventilator 35 02/12/17 07:27 99 16 35 02/12/17 05:39 98.4 02/12/17 05:00 114 16 100 Mechanical Ventilator 35 02/12/17 04:50 104 19 97 Mechanical Ventilator 35 02/12/17 04:41 89 16 35 02/12/17 04:00 35 02/12/17 04:00 99.0 105 16 155/86 99 Mechanical Ventilator 35 02/12/17 03:47 77 02/12/17 03:05 69 16 35 02/12/17 00:43 77 16 35 02/12/17 00:40 98.4 79 16 140/65 94 Mechanical Ventilator 35.0 02/12/17 00:00 35 02/11/17 23:46 77 02/11/17 22:33 83 16 35 02/11/17 20:40 88 16 35 02/11/17 20:39 35 02/11/17 20:31 84 136/72 02/11/17 20:00 98.8 91 16 137/78 98 Mechanical Ventilator 50 02/11/17 20:00 81 02/11/17 19:23 72 16 99 Mechanical Ventilator 02/11/17 19:15 71 16 99 Mechanical Ventilator 50 02/11/17 19:14 71 16 50 Intake and Output 02/11/17 02/12/17 19:00 07:00 Intake Total 1190 ml 910.0 ml Output Total 475 ml 1000 ml Balance 715 ml -90.0 ml Intake Free Water 200 ml 200 ml IV Total 450 ml 110.0 ml Tube Feeding 540 ml 600 ml Output Urine Total 475 ml 1000 ml # Bowel Movements 1 Objective General Appearance: WD/WN HEENT: normocephalic, atraumatic, status post trach Respiratory/Chest: chest wall non-tender, lungs clear Genitourinary: normal external genitalia Extremities: no cyanosis 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, 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 x 3 Current Medications Medications (Trade) Dose Ordered Sig/Beto Route PRN Reason Start Time Stop Time Status Last Admin Dose Admin Acetaminophen (Tylenol) 650 mg Q4H PRN ORAL FEVER 02/01/17 10:45 03/03/17 10:44 02/12/17 16:29 Albuterol/ Ipratropium (DuoNeb 0.5-3(2.5)mg/3ml) 3 ml Q4HRT HHN 02/12/17 11:00 02/17/17 10:59 02/12/17 15:34 Dextrose (Dextrose 50%) STAT PRN IV Hypoglycemia 02/01/17 10:45 03/03/17 10:44 Heparin Sodium (Porcine) (Heparin 5000 units/ml) 5,000 units EVERY 12 HOURS SUBQ 02/01/17 21:00 03/03/17 20:59 02/12/17 09:10 Lorazepam (Ativan 2mg/ml 1ml) 2 mg Q2H PRN IV For Anxiety 02/08/17 11:30 02/15/17 11:29 02/12/17 16:29 Metoprolol Tartrate (Lopressor) 25 mg EVERY 12 HOURS GT 02/03/17 16:07 03/03/17 20:59 02/12/17 09:09 Morphine Sulfate (Morphine Sulfate) 4 mg Q4H PRN IVP Severe Breakthru Pain (>7) 02/08/17 11:30 02/15/17 11:29 02/12/17 12:34 Ondansetron HCl (Zofran) 4 mg Q6H PRN IVP Nausea & Vomiting 02/01/17 10:45 03/03/17 10:44 02/10/17 12:34 Piperacillin Sod/ Tazobactam Sod/ Dextrose (Zosyn/D5W) 110 ml @ 27.5 mls/hr Q8H IVPB 02/07/17 09:00 02/16/17 08:59 02/12/17 16:29 Polyethylene Glycol (Miralax) 17 gm DAILYPRN PRN GT Constipation 02/03/17 16:07 03/03/17 10:44 02/12/17 09:09 Ranitidine HCl 150 mg 150 mg Q12HR GT 02/06/17 21:00 03/08/17 20:59 02/12/17 09:09 Tamsulosin HCl (Flomax) 0.4 mg BEDTIME GT 02/03/17 16:07 03/03/17 20:59 02/11/17 20:30 VALERIE WASHINGTON Feb 12, 2017 19:01
[2017-02-12 20:30] VITALS: BP 117/50
[2017-02-12] MEDS: Tamsulosin 0.4mg cap GT SCH (20:58)
[2017-02-13] VITALS: BP 118/73
[2017-02-13] MEDS: Piperacillin/Tazobactam 3.375 GM in D5W 110 ML IVPB SCH ×2 (01:30→09:01)
[2017-02-13] MEDS: Morphine Sulfate 4mg/ml Inj IVP PRN ×2 (01:59→10:14)
[2017-02-13] MEDS: DuoNeb 0.5-3(2.5)mg/3ml neb HHN SCH ×3 (03:01→11:15)
[2017-02-13 04:00] VITALS: BP 118/68
[2017-02-13 05:53] LABS: BASOPHILS % (AUTO) 1.6 % (0.0-2.0); EOSINOPHILS % (AUTO) 3.5 % (0.0-3.0); LYMPHOCYTES % (AUTO) 25.4 % (20.0-45.0); MEAN CORPUSCULAR HEMOGLOBIN 25.8 PG (27.0-31.0); MEAN CORPUSCULAR HGB CONC 29.9 G/DL (32.0-36.0); MEAN CORPUSCULAR VOLUME 86 FL (80-99); MEAN PLATELET VOLUME 6.2 FL (6.5-10.1); MONOCYTES % (AUTO) 10.1 % (1.0-10.0); NEUTROPHILS % (AUTO) 59.3 % (45.0-75.0); PLATELET COUNT 312 K/UL (150-450); RED BLOOD COUNT 3.63 M/UL (4.70-6.10); RED CELL DISTRIBUTION WIDTH 16.5 % (11.6-14.8); WHITE BLOOD COUNT 10.5 K/UL (4.8-10.8)
[2017-02-13 06:26] LABS: ALANINE AMINOTRANSFERASE 11 U/L (3-41); ALBUMIN/GLOBULIN RATIO 0.7 (1.0-2.7); ANION GAP 12 (5-15); ASPARTATE AMINO TRANSFERASE 19 U/L (5-40); CALCIUM 8.8 mg/dL (8.6-10.2); CARBON DIOXIDE 32 mEQ/L (20-30); CHLORIDE 97 mEQ/L (98-107); CREATININE 0.9 mg/dL (0.7-1.2); GLOMERULAR FILTRATION RATE > 60 mL/min (>60); HEMOLYSIS 3; POTASSIUM 3.5 mEQ/L (3.4-4.9); SODIUM 141 mEQ/L (135-145)
[2017-02-13 08:00] VITALS: BP 107/60
[2017-02-13] MEDS: Metoprolol 25mg tab GT SCH (09:01)
[2017-02-13] MEDS: Heparin 5000 units/ml inj SUBQ SCH (09:02)
[2017-02-13] MEDS: LORazepam Inj 2mg/ml 1ml IV PRN (09:03)
[2017-02-13] MEDS ORDERED: ZOSYN 3.373.375 GM/1 IVPB (11:06)
--- NOTE | 2017-02-13 11:07 | Pulmonology Progress Note ---
Assessment/Plan Problems: (1) Acute and chronic respiratory failure (ckrhj-[id number]) (2) Sepsis (3) CHENTE (acute kidney injury) (4) Diabetes mellitus (5) Hypertension Assessment/Plan tolerated feeding tube yesterday cant' weaned yet on zosyn didn't tolerate weaning continue abx check cultures dc planning with 3 more days of zosyn at [facility] Subjective ROS Limited/Unobtainable: No Constitutional: Reports: no symptoms HEENT: Repors: no symptoms Respiratory: Reports: no symptoms Cardiovascular: Reports: no symptoms Allergies: Coded Allergies: No Known Allergies (Unverified , 08/09/13) Objective Last 24 Hour Vital Signs Date Time Temp Pulse Resp B/P Pulse Ox O2 Delivery O2 Flow Rate FiO2 02/13/17 09:18 94 16 35 02/13/17 09:01 89 107/60 02/13/17 08:08 89 02/13/17 08:08 35 02/13/17 08:06 90 18 99 Mechanical Ventilator 35 02/13/17 08:00 98.1 74 16 107/60 98 Mechanical Ventilator 35 02/13/17 07:51 88 16 35 02/13/17 07:51 88 16 98 Mechanical Ventilator 35 02/13/17 07:51 35 02/13/17 05:22 84 16 35 02/13/17 04:00 98.2 91 19 118/68 98 Mechanical Ventilator 02/13/17 04:00 35 02/13/17 04:00 92 02/13/17 03:09 90 16 100 Mechanical Ventilator 35 02/13/17 03:01 90 16 99 Mechanical Ventilator 35 02/13/17 03:01 90 16 35 02/13/17 02:29 98.1 02/13/17 01:06 83 16 35 02/13/17 00:00 35 02/13/17 00:00 74 02/13/17 00:00 98.1 70 18 118/73 100 Mechanical Ventilator 02/12/17 23:28 77 16 100 Mechanical Ventilator 35 02/12/17 23:19 77 16 99 Mechanical Ventilator 35 02/12/17 23:19 77 16 35 02/12/17 21:06 89 16 35 02/12/17 20:58 94 117/50 02/12/17 20:30 98.1 94 19 117/50 95 Mechanical Ventilator 02/12/17 20:00 35 02/12/17 19:51 96 02/12/17 19:12 80 18 99 Mechanical Ventilator 35 02/12/17 19:04 79 18 97 Mechanical Ventilator 35 02/12/17 19:04 79 18 35 02/12/17 17:33 98.7 02/12/17 17:26 92 17 35 02/12/17 16:00 100.8 18 110/73 99 Mechanical Ventilator 35 02/12/17 15:49 78 02/12/17 15:49 35 02/12/17 15:46 90 17 100 Mechanical Ventilator 35 02/12/17 15:34 85 16 35 02/12/17 15:34 78 16 95 Mechanical Ventilator 35 02/12/17 12:57 78 16 35 02/12/17 12:00 97.5 88 18 125/71 99 Mechanical Ventilator 35 02/12/17 11:59 85 02/12/17 11:58 35 Intake and Output 02/12/17 02/13/17 19:00 07:00 Intake Total 1020 ml 970.0 ml Output Total 650 ml 800 ml Balance 370 ml 170.0 ml Intake Free Water 300 ml 200 ml IV Total 110.0 ml Tube Feeding 720 ml 660 ml Output Urine Total 650 ml 800 ml # Voids 1 # Bowel Movements 1 1 Objective General Appearance: WD/WN HEENT: normocephalic, atraumatic, status post trach Respiratory/Chest: chest wall non-tender, lungs clear Genitourinary: normal external genitalia Extremities: no cyanosis 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, oriented x 3 Laboratory Tests 02/13/17 04:00: White Blood Count 10.5, Red Blood Count 3.63L, Hemoglobin 9.3L, Hematocrit 31.3L , Mean Corpuscular Volume 86, Mean Corpuscular Hemoglobin 25.8L, Mean Corpuscular Hemoglobin Concent 29.9L, Red Cell Distribution Width 16.5H, Platelet Count 312, Mean Platelet Volume 6.2L, Neutrophils (%) (Auto) 59.3, Lymphocytes (%) (Auto) 25.4, Monocytes (%) (Auto) 10.1H, Eosinophils (%) (Auto) 3.5H, Basophils (%) (Auto) 1.6, Sodium Level 141, Potassium Level 3.5, Chloride Level 97L, Carbon Dioxide Level 32H, Anion Gap 12, Blood Urea Nitrogen 4L, Creatinine 0.9, Estimat Glomerular Filtration Rate > 60, Glucose Level 114H, Calcium Level 8.8, Total Bilirubin 0.3, Aspartate Amino Transf (AST/SGOT) 19, Alanine Aminotransferase (ALT/SGPT) 11, Alkaline Phosphatase 47, Total Protein 6.0L, Albumin 2.5L, Globulin 3.5, Albumin/Globulin Ratio 0.7L Current Medications Medications (Trade) Dose Ordered Sig/Beto Route PRN Reason Start Time Stop Time Status Last Admin Dose Admin Acetaminophen (Tylenol) 650 mg Q4H PRN ORAL FEVER 02/01/17 10:45 03/03/17 10:44 02/12/17 16:29 Albuterol/ Ipratropium (DuoNeb 0.5-3(2.5)mg/3ml) 3 ml Q4HRT HHN 02/12/17 11:00 02/17/17 10:59 02/13/17 07:51 Dextrose (Dextrose 50%) STAT PRN IV Hypoglycemia 02/01/17 10:45 03/03/17 10:44 Heparin Sodium (Porcine) (Heparin 5000 units/ml) 5,000 units EVERY 12 HOURS SUBQ 02/01/17 21:00 03/03/17 20:59 02/13/17 09:02 Lorazepam (Ativan 2mg/ml 1ml) 2 mg Q2H PRN IV For Anxiety 02/08/17 11:30 02/15/17 11:29 02/13/17 09:03 Metoprolol Tartrate (Lopressor) 25 mg EVERY 12 HOURS GT 02/03/17 16:07 03/03/17 20:59 02/13/17 09:01 Morphine Sulfate (Morphine Sulfate) 4 mg Q4H PRN IVP Severe Breakthru Pain (>7) 02/08/17 11:30 02/15/17 11:29 02/13/17 10:14 Ondansetron HCl (Zofran) 4 mg Q6H PRN IVP Nausea & Vomiting 02/01/17 10:45 03/03/17 10:44 02/10/17 12:34 Piperacillin Sod/ Tazobactam Sod/ Dextrose (Zosyn/D5W) 110 ml @ 27.5 mls/hr Q8H IVPB 02/07/17 09:00 02/16/17 08:59 02/13/17 09:01 Polyethylene Glycol (Miralax) 17 gm DAILYPRN PRN GT Constipation 02/03/17 16:07 03/03/17 10:44 02/12/17 09:09 Ranitidine HCl 150 mg 150 mg Q12HR GT 02/06/17 21:00 03/08/17 20:59 02/13/17 09:01 Tamsulosin HCl (Flomax) 0.4 mg BEDTIME GT 02/03/17 16:07 03/03/17 20:59 02/12/17 20:58 VALERIE WASHINGTON Feb 13, 2017 11:07
--- NOTE | 2017-02-13 11:39 | Diagnostic Imaging Report ---
Indication: DYSPNEA Technique: One view of the chest Comparison: 4 13/12/16 Findings: Slightly better inspiration currently. Interim partial improvement of previously demonstrated bilateral basilar pulmonary parenchymal disease, but slight infiltrates and atelectasis persist. Tracheostomy remains. Heart size is normal Impression: Improved but persistent bilateral basilar parenchymal disease, over 3 days Other findings as described
--- NOTE | 2017-02-13 11:49 | Infectious Diseases Prog Note ---
Assessment/Plan Assessment/Plan A: The patient is a 66-year-old male with low garade fever x 1 Sepsis, SP Pneumonia, Asp improving Scx:PSA leukocytosis, SP SP PEG 02/10 Chronic respiratory failure. Hypertension. Asthma. COPD. Diabetes. SP trach a PLAN: continue the patient on Zosyn d# 11 / ( 02/07 Ps Levaquin day # / ) ( 02/03 SP Teflaro d/3 3 ) Monitor CBC. Monitor BMP. Monitor chest x-ray. Subjective Constitutional: Denies: anorexia, chills, drenching sweats, fatigue, fever, no symptoms, other Allergies: Coded Allergies: No Known Allergies (Unverified , 08/09/13) Subjective on vent Objective Vital Signs Last 24 Hour Vital Signs Date Time Temp Pulse Resp B/P Pulse Ox O2 Delivery O2 Flow Rate FiO2 02/13/17 11:25 91 18 99 Mechanical Ventilator 35.0 35 02/13/17 11:16 84 16 35 02/13/17 11:15 85 16 99 Mechanical Ventilator 35 02/13/17 11:15 35 02/13/17 11:15 35 02/13/17 11:15 85 02/13/17 09:18 94 16 35 02/13/17 09:01 89 107/60 02/13/17 08:08 89 02/13/17 08:08 35 02/13/17 08:06 90 18 99 Mechanical Ventilator 35 02/13/17 08:00 98.1 74 16 107/60 98 Mechanical Ventilator 35 02/13/17 07:51 88 16 35 02/13/17 07:51 88 16 98 Mechanical Ventilator 35 02/13/17 07:51 35 02/13/17 05:22 84 16 35 02/13/17 04:00 98.2 91 19 118/68 98 Mechanical Ventilator 02/13/17 04:00 35 02/13/17 04:00 92 02/13/17 03:09 90 16 100 Mechanical Ventilator 35 02/13/17 03:01 90 16 99 Mechanical Ventilator 35 02/13/17 03:01 90 16 35 02/13/17 02:29 98.1 02/13/17 01:06 83 16 35 02/13/17 00:00 35 02/13/17 00:00 74 02/13/17 00:00 98.1 70 18 118/73 100 Mechanical Ventilator 02/12/17 23:28 77 16 100 Mechanical Ventilator 35 02/12/17 23:19 77 16 99 Mechanical Ventilator 35 02/12/17 23:19 77 16 35 02/12/17 21:06 89 16 35 02/12/17 20:58 94 117/50 02/12/17 20:30 98.1 94 19 117/50 95 Mechanical Ventilator 02/12/17 20:00 35 02/12/17 19:51 96 02/12/17 19:12 80 18 99 Mechanical Ventilator 35 02/12/17 19:04 79 18 97 Mechanical Ventilator 35 02/12/17 19:04 79 18 35 02/12/17 17:33 98.7 02/12/17 17:26 92 17 35 02/12/17 16:00 100.8 18 110/73 99 Mechanical Ventilator 35 02/12/17 15:49 78 02/12/17 15:49 35 02/12/17 15:46 90 17 100 Mechanical Ventilator 35 02/12/17 15:34 85 16 35 02/12/17 15:34 78 16 95 Mechanical Ventilator 35 02/12/17 12:57 78 16 35 02/12/17 12:00 97.5 88 18 125/71 99 Mechanical Ventilator 35 02/12/17 11:59 85 02/12/17 11:58 35 Height (Feet): 6 Weight (Pounds): 220 HEENT: anicteric Respiratory/Chest: no accessory muscle use Cardiovascular: regularly irregular Abdomen: non distended Laboratory Tests Test 02/13/17 04:00 White Blood Count 10.5 K/UL (4.8-10.8) Red Blood Count 3.63 M/UL (4.70-6.10) L Hemoglobin 9.3 G/DL (14.2-18.0) L Hematocrit 31.3 % (42.0-52.0) L Mean Corpuscular Volume 86 FL (80-99) Mean Corpuscular Hemoglobin 25.8 PG (27.0-31.0) L Mean Corpuscular Hemoglobin Concent 29.9 G/DL (32.0-36.0) L Red Cell Distribution Width 16.5 % (11.6-14.8) H Platelet Count 312 K/UL (150-450) Mean Platelet Volume 6.2 FL (6.5-10.1) L Neutrophils (%) (Auto) 59.3 % (45.0-75.0) Lymphocytes (%) (Auto) 25.4 % (20.0-45.0) Monocytes (%) (Auto) 10.1 % (1.0-10.0) H Eosinophils (%) (Auto) 3.5 % (0.0-3.0) H Basophils (%) (Auto) 1.6 % (0.0-2.0) Sodium Level 141 mEQ/L (135-145) Potassium Level 3.5 mEQ/L (3.4-4.9) Chloride Level 97 mEQ/L (98-107) L Carbon Dioxide Level 32 mEQ/L (20-30) H Anion Gap 12 (5-15) Blood Urea Nitrogen 4 mg/dL (7-23) L Creatinine 0.9 mg/dL (0.7-1.2) Estimat Glomerular Filtration Rate > 60 mL/min (>60) Glucose Level 114 mg/dL (74-106) H Calcium Level 8.8 mg/dL (8.6-10.2) Total Bilirubin 0.3 mg/dL (0.0-1.2) Aspartate Amino Transf (AST/SGOT) 19 U/L (5-40) Alanine Aminotransferase (ALT/SGPT) 11 U/L (3-41) Alkaline Phosphatase 47 U/L (40-129) Total Protein 6.0 g/dL (6.6-8.7) L Albumin 2.5 g/dL (3.5-5.2) L Globulin 3.5 g/dL Albumin/Globulin Ratio 0.7 (1.0-2.7) L Current Medications Medications (Trade) Dose Ordered Sig/Beto Route PRN Reason Start Time Stop Time Status Last Admin Dose Admin Acetaminophen (Tylenol) 650 mg Q4H PRN ORAL FEVER 02/01/17 10:45 03/03/17 10:44 02/12/17 16:29 Albuterol/ Ipratropium (DuoNeb 0.5-3(2.5)mg/3ml) 3 ml Q4HRT HHN 02/12/17 11:00 02/17/17 10:59 02/13/17 11:15 Dextrose (Dextrose 50%) STAT PRN IV Hypoglycemia 02/01/17 10:45 03/03/17 10:44 Heparin Sodium (Porcine) (Heparin 5000 units/ml) 5,000 units EVERY 12 HOURS SUBQ 02/01/17 21:00 03/03/17 20:59 02/13/17 09:02 Lorazepam (Ativan 2mg/ml 1ml) 2 mg Q2H PRN IV For Anxiety 02/08/17 11:30 02/15/17 11:29 02/13/17 09:03 Metoprolol Tartrate (Lopressor) 25 mg EVERY 12 HOURS GT 02/03/17 16:07 03/03/17 20:59 02/13/17 09:01 Morphine Sulfate (Morphine Sulfate) 4 mg Q4H PRN IVP Severe Breakthru Pain (>7) 02/08/17 11:30 02/15/17 11:29 02/13/17 10:14 Ondansetron HCl (Zofran) 4 mg Q6H PRN IVP Nausea & Vomiting 02/01/17 10:45 03/03/17 10:44 02/10/17 12:34 Piperacillin Sod/ Tazobactam Sod/ Dextrose (Zosyn/D5W) 110 ml @ 27.5 mls/hr Q8H IVPB 02/07/17 09:00 02/16/17 08:59 02/13/17 09:01 Polyethylene Glycol (Miralax) 17 gm DAILYPRN PRN GT Constipation 02/03/17 16:07 03/03/17 10:44 02/12/17 09:09 Ranitidine HCl 150 mg 150 mg Q12HR GT 02/06/17 21:00 03/08/17 20:59 02/13/17 09:01 Tamsulosin HCl (Flomax) 0.4 mg BEDTIME GT 02/03/17 16:07 03/03/17 20:59 02/12/17 20:58 SYLVESTER RODGERS M.D. Feb 13, 2017 11:49
[2017-02-13] MEDS ORDERED: Morphine Sulfate 4mg/ml Inj IVP ONE (12:15)
[2017-02-13 12:20] VITALS: BP 110/79
--- NOTE | 2017-02-13 12:51 | GI Progress Note ---
Assessment/Plan Problems: (1) Iron (Fe) deficiency anemia ICD Codes: D50.9 - Iron deficiency anemia, unspecified SNOMED: 14190569 (2) RLL pneumonia ICD Codes: J18.1 - Lobar pneumonia, unspecified organism SNOMED: 335712042 (3) Right upper quadrant abdominal pain ICD Codes: R10.11 - Right upper quadrant pain SNOMED: 655729999 (4) Diabetes mellitus ICD Codes: E11.9 - Type 2 diabetes mellitus without complications SNOMED: 54576850 (5) Sepsis ICD Codes: A41.9 - Sepsis, unspecified organism SNOMED: 86736624 (6) Constipation ICD Codes: K59.00 - Constipation, unspecified SNOMED: 99317043 Status: stable, progressing Status Narrative Discussed with Dr. Hsu. Assessment/Plan Assessment - RUQ abd TTP with negative CT/ultrasound most likely from R sided pneumonia. - pyelo - diverticulosis - mild anemia - Azotemia - Resp failure / Trach Recommendations GTF GT care and flush monitor labs dc planning per primary team Subjective Gastrointestinal/Abdominal: Reports: constipated Objective Last 24 Hour Vital Signs Date Time Temp Pulse Resp B/P Pulse Ox O2 Delivery O2 Flow Rate FiO2 02/13/17 12:34 88 16 35 02/13/17 12:20 98.1 90 16 110/79 100 Mechanical Ventilator 35 02/13/17 11:25 91 18 99 Mechanical Ventilator 35.0 35 02/13/17 11:16 84 16 35 02/13/17 11:15 85 16 99 Mechanical Ventilator 35 02/13/17 11:15 35 02/13/17 11:15 35 02/13/17 11:15 85 02/13/17 09:18 94 16 35 02/13/17 09:01 89 107/60 02/13/17 08:08 89 02/13/17 08:08 35 02/13/17 08:06 90 18 99 Mechanical Ventilator 35 02/13/17 08:00 98.1 74 16 107/60 98 Mechanical Ventilator 35 02/13/17 07:51 88 16 35 02/13/17 07:51 88 16 98 Mechanical Ventilator 35 02/13/17 07:51 35 02/13/17 05:22 84 16 35 02/13/17 04:00 98.2 91 19 118/68 98 Mechanical Ventilator 02/13/17 04:00 35 02/13/17 04:00 92 02/13/17 03:09 90 16 100 Mechanical Ventilator 35 02/13/17 03:01 90 16 99 Mechanical Ventilator 35 02/13/17 03:01 90 16 35 02/13/17 02:29 98.1 02/13/17 01:06 83 16 35 02/13/17 00:00 35 02/13/17 00:00 74 02/13/17 00:00 98.1 70 18 118/73 100 Mechanical Ventilator 02/12/17 23:28 77 16 100 Mechanical Ventilator 35 02/12/17 23:19 77 16 99 Mechanical Ventilator 35 02/12/17 23:19 77 16 35 02/12/17 21:06 89 16 35 02/12/17 20:58 94 117/50 02/12/17 20:30 98.1 94 19 117/50 95 Mechanical Ventilator 02/12/17 20:00 35 02/12/17 19:51 96 02/12/17 19:12 80 18 99 Mechanical Ventilator 35 02/12/17 19:04 79 18 97 Mechanical Ventilator 35 02/12/17 19:04 79 18 35 02/12/17 17:33 98.7 02/12/17 17:26 92 17 35 02/12/17 16:00 100.8 18 110/73 99 Mechanical Ventilator 35 02/12/17 15:49 78 02/12/17 15:49 35 02/12/17 15:46 90 17 100 Mechanical Ventilator 35 02/12/17 15:34 85 16 35 02/12/17 15:34 78 16 95 Mechanical Ventilator 35 02/12/17 12:57 78 16 35 Intake and Output 02/12/17 02/13/17 19:00 07:00 Intake Total 1020 ml 970.0 ml Output Total 650 ml 800 ml Balance 370 ml 170.0 ml Intake Free Water 300 ml 200 ml IV Total 110.0 ml Tube Feeding 720 ml 660 ml Output Urine Total 650 ml 800 ml # Voids 1 # Bowel Movements 1 1 Laboratory Tests Test 02/13/17 04:00 White Blood Count 10.5 K/UL (4.8-10.8) Red Blood Count 3.63 M/UL (4.70-6.10) L Hemoglobin 9.3 G/DL (14.2-18.0) L Hematocrit 31.3 % (42.0-52.0) L Mean Corpuscular Volume 86 FL (80-99) Mean Corpuscular Hemoglobin 25.8 PG (27.0-31.0) L Mean Corpuscular Hemoglobin Concent 29.9 G/DL (32.0-36.0) L Red Cell Distribution Width 16.5 % (11.6-14.8) H Platelet Count 312 K/UL (150-450) Mean Platelet Volume 6.2 FL (6.5-10.1) L Neutrophils (%) (Auto) 59.3 % (45.0-75.0) Lymphocytes (%) (Auto) 25.4 % (20.0-45.0) Monocytes (%) (Auto) 10.1 % (1.0-10.0) H Eosinophils (%) (Auto) 3.5 % (0.0-3.0) H Basophils (%) (Auto) 1.6 % (0.0-2.0) Sodium Level 141 mEQ/L (135-145) Potassium Level 3.5 mEQ/L (3.4-4.9) Chloride Level 97 mEQ/L (98-107) L Carbon Dioxide Level 32 mEQ/L (20-30) H Anion Gap 12 (5-15) Blood Urea Nitrogen 4 mg/dL (7-23) L Creatinine 0.9 mg/dL (0.7-1.2) Estimat Glomerular Filtration Rate > 60 mL/min (>60) Glucose Level 114 mg/dL (74-106) H Calcium Level 8.8 mg/dL (8.6-10.2) Total Bilirubin 0.3 mg/dL (0.0-1.2) Aspartate Amino Transf (AST/SGOT) 19 U/L (5-40) Alanine Aminotransferase (ALT/SGPT) 11 U/L (3-41) Alkaline Phosphatase 47 U/L (40-129) Total Protein 6.0 g/dL (6.6-8.7) L Albumin 2.5 g/dL (3.5-5.2) L Globulin 3.5 g/dL Albumin/Globulin Ratio 0.7 (1.0-2.7) L Height (Feet): 6 Weight (Pounds): 220 General Appearance: no apparent distress, alert, obese Cardiovascular: normal rate Respiratory/Chest: other - mech vent Abdominal Exam: GT site Luciana Kohler N.P. Feb 13, 2017 12:51
--- NOTE | 2017-02-13 12:58 | General Progress Note ---
Assessment/Plan Status: stable Assessment/Plan status: Acute renal failure- resolved Sepsis- resolving leukocytosis DM Respiratory failure RUQ pain Anemia Plan: Hydrate- monitor renal parameters- Keep BP and BS in check urine studies- Avoid nephrotoxics DC planning? Subjective ROS Limited/Unobtainable: No Constitutional: Reports: malaise Allergies: Coded Allergies: No Known Allergies (Unverified , 08/09/13) Objective Last 24 Hour Vital Signs Date Time Temp Pulse Resp B/P Pulse Ox O2 Delivery O2 Flow Rate FiO2 02/13/17 12:34 88 16 35 02/13/17 12:20 98.1 90 16 110/79 100 Mechanical Ventilator 35 02/13/17 11:25 91 18 99 Mechanical Ventilator 35.0 35 02/13/17 11:16 84 16 35 02/13/17 11:15 85 16 99 Mechanical Ventilator 35 02/13/17 11:15 35 02/13/17 11:15 35 02/13/17 11:15 85 02/13/17 09:18 94 16 35 02/13/17 09:01 89 107/60 02/13/17 08:08 89 02/13/17 08:08 35 02/13/17 08:06 90 18 99 Mechanical Ventilator 35 02/13/17 08:00 98.1 74 16 107/60 98 Mechanical Ventilator 35 02/13/17 07:51 88 16 35 02/13/17 07:51 88 16 98 Mechanical Ventilator 35 02/13/17 07:51 35 02/13/17 05:22 84 16 35 02/13/17 04:00 98.2 91 19 118/68 98 Mechanical Ventilator 02/13/17 04:00 35 02/13/17 04:00 92 02/13/17 03:09 90 16 100 Mechanical Ventilator 35 02/13/17 03:01 90 16 99 Mechanical Ventilator 35 02/13/17 03:01 90 16 35 02/13/17 02:29 98.1 02/13/17 01:06 83 16 35 02/13/17 00:00 35 02/13/17 00:00 74 02/13/17 00:00 98.1 70 18 118/73 100 Mechanical Ventilator 02/12/17 23:28 77 16 100 Mechanical Ventilator 35 02/12/17 23:19 77 16 99 Mechanical Ventilator 35 02/12/17 23:19 77 16 35 02/12/17 21:06 89 16 35 02/12/17 20:58 94 117/50 02/12/17 20:30 98.1 94 19 117/50 95 Mechanical Ventilator 02/12/17 20:00 35 02/12/17 19:51 96 02/12/17 19:12 80 18 99 Mechanical Ventilator 35 02/12/17 19:04 79 18 97 Mechanical Ventilator 35 02/12/17 19:04 79 18 35 02/12/17 17:33 98.7 02/12/17 17:26 92 17 35 02/12/17 16:00 100.8 18 110/73 99 Mechanical Ventilator 35 02/12/17 15:49 78 02/12/17 15:49 35 02/12/17 15:46 90 17 100 Mechanical Ventilator 35 02/12/17 15:34 85 16 35 02/12/17 15:34 78 16 95 Mechanical Ventilator 35 02/12/17 12:57 78 16 35 Intake and Output 02/12/17 02/13/17 19:00 07:00 Intake Total 1020 ml 970.0 ml Output Total 650 ml 800 ml Balance 370 ml 170.0 ml Intake Free Water 300 ml 200 ml IV Total 110.0 ml Tube Feeding 720 ml 660 ml Output Urine Total 650 ml 800 ml # Voids 1 # Bowel Movements 1 1 Laboratory Tests 02/13/17 04:00: White Blood Count 10.5, Red Blood Count 3.63L, Hemoglobin 9.3L, Hematocrit 31.3L , Mean Corpuscular Volume 86, Mean Corpuscular Hemoglobin 25.8L, Mean Corpuscular Hemoglobin Concent 29.9L, Red Cell Distribution Width 16.5H, Platelet Count 312, Mean Platelet Volume 6.2L, Neutrophils (%) (Auto) 59.3, Lymphocytes (%) (Auto) 25.4, Monocytes (%) (Auto) 10.1H, Eosinophils (%) (Auto) 3.5H, Basophils (%) (Auto) 1.6, Sodium Level 141, Potassium Level 3.5, Chloride Level 97L, Carbon Dioxide Level 32H, Anion Gap 12, Blood Urea Nitrogen 4L, Creatinine 0.9, Estimat Glomerular Filtration Rate > 60, Glucose Level 114H, Calcium Level 8.8, Total Bilirubin 0.3, Aspartate Amino Transf (AST/SGOT) 19, Alanine Aminotransferase (ALT/SGPT) 11, Alkaline Phosphatase 47, Total Protein 6.0L, Albumin 2.5L, Globulin 3.5, Albumin/Globulin Ratio 0.7L Height (Feet): 6 Weight (Pounds): 220 General Appearance: no apparent distress Objective PE not changed SAMANTHA ALLRED Feb 13, 2017 12:58
--- NOTE | 2017-02-15 06:43 | Discharge Summary ---
Discharge Summary Hospital Course Date of Admission Feb 01, 2017 at 05:15 Date of Discharge Feb 13, 2017 at 13:05 Admitting Diagnosis Sepsis HPI Fredrick Villatoro Jr is a 66 year old male who was admitted on Feb 01, 2017 at 05 :15 for Sepsis Hospital Course dc summary #[id number] Discharge Medications New Medications: Ilcsafpapumq-Yxsy-Nnommgip,Iso (Zosyn 3.375 Gm Pre Mix-Bag) 3.375 Gm/50 Ml Froz.piggy 3.375 GM IVPB EVERY 8 HOURS for 3 Days, BAG Continued Medications: Acetaminophen* (Acetaminophen 325MG Tablet*) 325 Mg Tablet 650 MG ORAL Q4H PRN for fever, #30 TAB Albuterol Sulfate (Ventolin Hfa) 18 Gm Hfa.aer.ad 2 PUFFS INH EVERY 6 HOURS, #18 GM 0 Refills Amlodipine Besylate* (Amlodipine Besylate*) 5 Mg Tablet 5 MG ORAL DAILY, TAB Clonidine Hcl* (Catapres*) 0.1 Mg Tablet 0.1 MG ORAL EVERY 6 HOURS, TAB prn SBP > 160 Hydrocodone Bit/Acetaminophen 5-325* ([place] 5-325 Tablet*) 1 Each Tablet 1 TAB ORAL Q6HR PRN for For Pain, TAB as needed for moderate pain 4-10 Insulin Aspart (Novolog Flexpen) 100 Units/Ml Pen 0 UNITS SUBQ BEFORE MEALS AND HS, #10 EA Ipratropium Gardner 0.5MG/2.5ML (Ipratropium Gardner 0.5MG/2.5ML) 0.2 Mg/1 Ml Solution 0.5 MG HHN Q6H PRN for Shortness of Breath, #28 EA Lorazepam (Lorazepam) 2 Mg/1 Ml Oral.conc 1 MG ORAL NEEDED PRN for For Anxiety, ML Pantoprazole* (Pantoprazole*) 40 Mg Tablet.dr 40 MG ORAL DAILY, TAB Tamsulosin Hcl (Tamsulosin Hcl*) 0.4 Mg Cap.er.24h 0.4 MG ORAL BEDTIME, CAP Theophylline (Theodur*) 100 Mg Tab.er.12h 100 MG ORAL EVERY 12 HOURS, #30 TAB Discharge Condition Upon Discharge: stable Discharge Disposition Patient was discharged to SNF/Subacute Facility(03) Discharge Diagnoses: Jose Juan (Terrie)Sepideh NP Feb 15, 2017 06:43
--- NOTE | 2017-02-15 12:37 | Discharge Summary 2 SIG ---
DATE OF ADMISSION: 02/01/2017 DATE OF DISCHARGE: 02/13/2017 The patient admitted under Dr. Greene. REASON FOR ADMISSION: This is a 66-year-old male, chronically ventilator dependent with tracheostomy, was brought from the longterm facility with a fever, complained of abdominal pain. The patient had a fever at [facility], was given Tylenol and antibiotic without improvement. The patient denied nausea, vomiting, or diarrhea. The patient denied chest pain, shortness of breath, or urinary complaints. Workup in the emergency room revealed leukocytosis, WBC of 21.6 and acute kidney injury with BUN of 31 and creatinine of 2.3. Urinalysis, no evidence of UTI. Chest x-ray with evidence of right base pneumonia. Septic workup initiated. The patient pancultured and started on fluid resuscitation and admitted to [facility] for further management. ADMITTING DIAGNOSES: Include, 1. Right upper quadrant abdominal pain. 2. Acute on chronic respiratory failure. 3. Sepsis. 4. Acute kidney injury. 5. Pneumonia. HOSPITAL STAY: The patient admitted to [facility]. The patient pancultured and started on antibiotics. ID followed. Urine culture negative. Blood culture negative. Sputum culture positive for Pseudomonas. The patient was on the IV antibiotics, optimized based on sensitivity and discharged on three more days of Zosyn as per ID recommendation. The patient was on the IV fluid hydration. Renal parameters were closely monitored. Pewter Finisher followed. Acute kidney injury resolved with IV hydration, likely prerenal. Prior to discharge, BUN and creatinine within normal limits. Avoid nephrotoxic. Ventilator and tracheostomy care was provided. Pulmonary toilet was provided. No signs of respiratory distress on current settings. Keep ventilator setting as is and titrate as needed to keep saturation above 92%. GI seen and evaluated the patient due to the concern of the right upper quadrant abdominal pain. CT of the abdomen and pelvis done in the emergency room revealed no definite acute process. Subsequently, abdominal ultrasound was ordered, which was negative for gallstones, dilated bile duct, or other acute pathology. Venous duplex of bilateral lower extremity negative. According to the GI doctor, right upper quadrant pain was probably secondary to right base pneumonia. Chest x-ray prior to discharge revealed improvement with some chronic changes still remaining. Leukocytosis resolved. The patient is afebrile. Pneumonia was aspiration pneumonia. The patient was at high risk for aspiration. Subsequently, G-tube was placed. On 02/10/2017, the patient tolerated procedure well. G-tube feeding started with strict aspiration precaution maintained. The head of bed elevated. The patient tolerated G-tube feeding. G-tube site care provided. Blood pressure was managed with beta-marcin and calcium-channel marcin was stable. DVT prophylaxis provided. The patient noted to have anemia. Anemia workup revealed iron deficiency anemia. The patient undergone transfusion of one unit of packed red blood cells and IV Venofer while in the hospital. All laboratory work stable prior to discharge. DISCHARGE DIAGNOSES: Include, 1. Acute on chronic respiratory failure. 2. Sepsis. 3. Aspiration pneumonia/Pseudomonas. 4. Acute kidney injury (prerenal, resolved). 5. Hypertension. 6. Dysphagia, status post percutaneous endoscopic gastrostomy on 02/10/2017. 7. Chronic obstructive pulmonary disease. 8. Iron deficiency anemia, status post transfusion of one unit packed red blood cells. DISCHARGE MEDICATIONS: See medication reconciliation list. DISCHARGE INSTRUCTIONS: The patient discharged to the longterm facility. Follow up with the medical doctor and operations and maintenance supervisor at the facility. Julia Greene M.D. I have been assigned to dictate discharge summary on this account and I was not involved in the patient's management. [facility] Sor[facility] DR: DAVID JOB#: [id number] CC:
== END 2017-02-13 13:05 | DRG 720 ==
LOC: EDBD 04:20 → EDUNIT# 04:20 → EMR 04:40 → 2W 05:15 → EDBEDREQ 05:31 → 2W 02-10 09:11
PROC: 5A1955Z Respiratory Ventilation, Greater than 96 Consecutive Hours (ICD-10-PCS; principal; 2017-02-01)
PROC: 30233N1 Transfusion of Nonautologous Red Blood Cells into Peripheral Vein, Percutaneous Approach (ICD-10-PCS; 2017-02-07)
PROC: 0DH63UZ Insertion of Feeding Device into Stomach, Percutaneous Approach (ICD-10-PCS; 2017-02-10 11:29)
DX: A41.9 Sepsis, unspecified organism (principal); J96.20 Acute and chronic respiratory failure, unspecified whether with hypoxia or hypercapnia; J69.0 Pneumonitis due to inhalation of food and vomit; N17.9 Acute kidney failure, unspecified; Z99.11 Dependence on respirator [ventilator] status; Z43.0 Encounter for attention to tracheostomy; J15.1 Pneumonia due to Pseudomonas; R13.10 Dysphagia, unspecified; J44.9 Chronic obstructive pulmonary disease, unspecified; N12 Tubulo-interstitial nephritis, not specified as acute or chronic; I10 Essential (primary) hypertension; E11.9 Type 2 diabetes mellitus without complications; D50.9 Iron deficiency anemia, unspecified; N10 Acute pyelonephritis; K57.90 Diverticulosis of intestine, part unspecified, without perforation or abscess without bleeding; R10.11 Right upper quadrant pain; K40.90 Unilateral inguinal hernia, without obstruction or gangrene, not specified as recurrent
CPT/HCPCS: 36415; 71010; 74176; 76700; 80048; 80053; 81001; 81003; 82436; 82533; 82550; 82553; 82607; 82728; 82746; 83036; 83540; 83550; 83605; 83735; 83880; 83930; 83935; 84100; 84133; 84300; 84439; 84443; 84481; 84484; 84550; 85007; 85025; 85610; 85730; 86140; 86850; 86900; 86901; 86920; 87040; 87070; 87081; 87086; 87181; 87205; 89050; 93005; 93970; 94002; 94003; 94150; 94640; 94664; J2405; J7620